=== PATIENT | female | born 1935 | race Caucasian/White ===

== ENCOUNTER → 2016-10-12 | Outpatient (CLI) | payer OTHER ==
[~2016-10-12] MED LIST: /CELE20CA PO; /TIOT18INH INH; ACET65TA OR; ASPI81TA83 OR; Albuterol; Albuterol Inhaler INH; CARD120T6 OR; COLA100C2 OR; DEMA100T OR; FLON0.05; LIPI10TA OR; MOME50SP; NORCOTAB PO; Nasonex; RANI150C OR; SERT50TA2 OR; SPIR50TA2 OR; TUMS500C PO; [UNRECOGNIZED DRUG - OTHER] PO
[2016-10-12 17:55] LABS: BASO % 0.3 % (0.0-1.0); EOS # 0.1 K/mm3 (0.0-0.50); EOS % 2.8 % (0.0-3.0); LYMPH # 1.2 K/mm3 (1.5-4.5); LYMPH % 30.6 % (24.0-44.0); MEAN CORPUSCULAR HEMOGLOBIN 27.2 pg (27.0-33.0); MEAN CORPUSCULAR VOLUME 87.7 fl (80.0-96.0); MONO # 0.2 K/mm3 (0.0-0.8); MONO % 5.7 % (0.0-5.0); NEUTROPHILS # 2.3 K/mm3 (1.8-7.7); NEUTROPHILS % 59.6 % (36.0-66.0); PLATELET COUNT, AUTOMATED 211 k/mm3 (150-450); RED CELL DISTRIBUTION WIDTH 17.5 % (11.5-14.5); WHITE BLOOD COUNT 3.8 K/mm3 (4.0-10.0)
[2016-10-12 18:29] LABS: ALBUMIN 3.6 GM/DL (3.2-5.2); ALBUMIN/GLOBULIN RATIO 1.33 (1.00-1.93); ALKALINE PHOSPHATASE 811 U/L (45-117); ALT/SGPT 81 U/L (12-78); ANION GAP 6 MEQ/L (8-16); AST/SGOT 73 U/L (15-37); BILIRUBIN,TOTAL 0.6 MG/DL (0.2-1.0); BLOOD UREA NITROGEN 14 MG/DL (7-18); CALCIUM LEVEL 8.5 MG/DL (8.8-10.2); CARBON DIOXIDE LEVEL 27 MEQ/L (21-32); CHLORIDE LEVEL 107 MEQ/L (98-107); CHOLESTEROL LEVEL 135 MG/DL (<200); CREATININE FOR GFR 0.95 MG/DL (0.55-1.02); GLOMERULAR FILTRATION RATE > 60.0 (>32); GLUCOSE, FASTING 84 MG/DL (83-110); POTASSIUM SERUM 4.9 MEQ/L (3.5-5.1); SODIUM LEVEL 140 MEQ/L (136-145); TOTAL PROTEIN 6.3 GM/DL (6.4-8.2); TRIGLYCERIDES LEVEL 88 MG/DL (<150)
== END ==
LOC: M WUC 11:17
PROVIDERS: ATTEND Nurse Practitioner Family
DX: K21.9 Gastro-esophageal reflux disease without esophagitis (principal); E78.5 Hyperlipidemia, unspecified; I25.9 Chronic ischemic heart disease, unspecified

== ENCOUNTER → 2016-11-02 | Outpatient (CLI) | payer OTHER ==
[2016-11-02 18:01] LABS: ALBUMIN 3.6 GM/DL (3.2-5.2); ALBUMIN/GLOBULIN RATIO 1.44 (1.00-1.93); BILIRUBIN,DIRECT 0.1 MG/DL (0.0-0.2); BILIRUBIN,TOTAL 0.4 MG/DL (0.2-1.0); TOTAL PROTEIN 6.1 GM/DL (6.4-8.2)
== END ==
LOC: M LRY 12:15
PROVIDERS: ATTEND Nurse Practitioner Family
DX: R94.5 Abnormal results of liver function studies (principal)

== ENCOUNTER → 2017-01-19 | Outpatient (CLI) | payer OTHER ==
[2017-01-19 17:16] LABS: BASO % 0.2 % (0.0-1.0); EOS # 0.1 10^3/uL (0.0-0.50); EOS % 1.2 % (0.0-3.0); IMMATURE GRANULOCYTE % 0.3 % (0-0); LYMPH # 1.9 10^3/uL (1.5-4.5); LYMPH % 30.9 % (24.0-44.0); MEAN CORPUSCULAR HGB CONC 30.1 g/dl (32.0-36.5); MEAN CORPUSCULAR VOLUME 86.3 fl (80.0-96.0); MONO # 0.3 10^3/uL (0.0-0.8); MONO % 5.1 % (0.0-5.0); NEUTROPHILS # 3.8 10^3/uL (1.8-7.7); NEUTROPHILS % 62.3 % (36.0-66.0); PLATELET COUNT, AUTOMATED 228 10^3/uL (150-450); RED CELL DISTRIBUTION WIDTH 19.3 % (11.5-14.5); WHITE BLOOD COUNT 6.1 10^3/uL (4.0-10.0)
[2017-01-19 18:58] LABS: CALCIUM LEVEL 8.8 MG/DL (8.8-10.2); CREATININE FOR GFR 1.27 MG/DL (0.55-1.02); POTASSIUM SERUM 4.5 MEQ/L (3.5-5.1)
[2017-01-19 18:59] LABS: ALBUMIN 3.7 GM/DL (3.2-5.2); ALBUMIN/GLOBULIN RATIO 1.23 (1.00-1.93); BILIRUBIN,TOTAL 0.5 MG/DL (0.2-1.0); TOTAL PROTEIN 6.7 GM/DL (6.4-8.2); URIC ACID 7.6 MG/DL (2.6-6.0)
== END ==
LOC: M LRY 10:50
PROVIDERS: ATTEND Nurse Practitioner Family
DX: K21.9 Gastro-esophageal reflux disease without esophagitis (principal); M79.674 Pain in right toe(s); E78.5 Hyperlipidemia, unspecified

== ENCOUNTER → 2017-03-22 | Outpatient (CLI) | payer OTHER | LOC: M LRY 13:56 | PROVIDERS: ATTEND Nurse Practitioner Family | DX: M79.674 Pain in right toe(s) (principal) ==

== ENCOUNTER → 2017-05-14 | Outpatient (CLI) | payer OTHER ==
[2017-05-14 14:00] LABS: BASO % 0.4 % (0.0-1.0); EOS # 0.1 10^3/uL (0.0-0.50); EOS % 2.4 % (0.0-3.0); HEMATOCRIT 38.1 % (36.0-47.0); HEMOGLOBIN 11.8 g/dl (12.0-16.0); IMMATURE GRANULOCYTE % 0.2 % (0-3.0); LYMPH # 1.9 10^3/uL (1.5-4.5); LYMPH % 37.7 % (24.0-44.0); MEAN CORPUSCULAR HEMOGLOBIN 28.9 pg (27.0-33.0); MEAN CORPUSCULAR VOLUME 93.2 fl (80.0-96.0); MONO # 0.3 10^3/uL (0.0-0.8); MONO % 5.3 % (0.0-5.0); NEUTROPHILS # 2.7 10^3/uL (1.8-7.7); PLATELET COUNT, AUTOMATED 211 10^3/uL (150-450); RED BLOOD COUNT 4.09 10^6/uL (4.00-5.40); RED CELL DISTRIBUTION WIDTH 18.4 % (11.5-14.5); WHITE BLOOD COUNT 4.9 10^3/uL (4.0-10.0)
[2017-05-14 14:30] LABS: ALBUMIN 3.7 GM/DL (3.2-5.2); ALBUMIN/GLOBULIN RATIO 1.28 (1.00-1.93); ALKALINE PHOSPHATASE 235 U/L (45-117); ALT/SGPT 28 U/L (12-78); ANION GAP 7 MEQ/L (8-16); AST/SGOT 28 U/L (7-37); BILIRUBIN,TOTAL 0.5 MG/DL (0.2-1.0); BLOOD UREA NITROGEN 21 MG/DL (7-18); CALCIUM LEVEL 8.3 MG/DL (8.8-10.2); CARBON DIOXIDE LEVEL 26 MEQ/L (21-32); CHLORIDE LEVEL 103 MEQ/L (98-107); CREATININE FOR GFR 1.31 MG/DL (0.55-1.30); GLOMERULAR FILTRATION RATE 41.4 (>32); GLUCOSE, FASTING 96 MG/DL (70-100); POTASSIUM SERUM 4.2 MEQ/L (3.5-5.1); SODIUM LEVEL 136 MEQ/L (136-145); TOTAL PROTEIN 6.6 GM/DL (6.4-8.2)
== END ==
LOC: M LAB 13:29
DX: Z01.812 Encounter for preprocedural laboratory examination (principal)
CPT/HCPCS: 93005

== ENCOUNTER 2017-06-09 14:43 | Emergency (ER) | payer OTHER ==
[2017-06-09] MEDS: ACETAMINOPHEN 325 MG TAB PO ×2 (18:45)
== END 2017-06-09 19:16 | disposition home or self-care (01) ==
LOC: M ED 14:43
DX: M25.561 Pain in right knee (principal); M85.88 Other specified disorders of bone density and structure, other site; M17.11 Unilateral primary osteoarthritis, right knee; M25.461 Effusion, right knee; M71.21 Synovial cyst of popliteal space [Baker], right knee; F41.9 Anxiety disorder, unspecified; M79.89 Other specified soft tissue disorders; Z95.5 Presence of coronary angioplasty implant and graft; Z79.82 Long term (current) use of aspirin; Z79.899 Other long term (current) drug therapy; Z88.5 Allergy status to narcotic agent; Z88.8 Allergy status to other drugs, medicaments and biological substances
CPT/HCPCS: 73564

== ENCOUNTER → 2017-06-09 | Outpatient (CLI) | payer OTHER | LOC: M LRY 13:55 | DX: M25.561 Pain in right knee (principal); M85.861 Other specified disorders of bone density and structure, right lower leg ==

== ENCOUNTER → 2017-07-20 | Outpatient (CLI) | payer OTHER ==
[2017-07-20 16:57] LABS: ANION GAP 7 MEQ/L (8-16); BLOOD UREA NITROGEN 18 MG/DL (7-18); CALCIUM LEVEL 7.7 MG/DL (8.8-10.2); CARBON DIOXIDE LEVEL 26 MEQ/L (21-32); CHLORIDE LEVEL 108 MEQ/L (98-107); CREATININE FOR GFR 1.17 MG/DL (0.55-1.30); GLOMERULAR FILTRATION RATE 47.1 (>32); GLUCOSE, FASTING 91 MG/DL (70-100); POTASSIUM SERUM 3.9 MEQ/L (3.5-5.1); SODIUM LEVEL 141 MEQ/L (136-145)
== END ==
LOC: M LRY 13:36
DX: I51.7 Cardiomegaly (principal); N18.3 Chronic kidney disease, stage 3 (moderate); J18.9 Pneumonia, unspecified organism
CPT/HCPCS: 80048

== ENCOUNTER 2017-08-02 17:05 | Inpatient (IN) | payer OTHER ==
[2017-08-02] MEDS ORDERED: METOPROLOL 5 MG/5 ML VIAL IV (18:30)
[2017-08-02] MEDS: IPRATROPIUM 0.5MG/ALBUTEROL 2.5MG INH SOL UD 3ML (DUONEB)(J7620) NEB (18:36)
[2017-08-02 18:42] LABS: ABG BASE EXCESS -3.3 (-2.0-2.0); ABG HCO3 20.3 MEQ/L (22.0-26.0); ABG O2 SATURATION 94.9 % (95.0-99.0); ABG PARTIAL PRESSURE CO2 31.5 mmHg (35.0-45.0); ABG PARTIAL PRESSURE O2 73.5 mmHg (75.0-100.0); ABG STANDARD HCO3 21.7 MEQ/L (22.0-26.0); ABG TOTAL CO2 21.3 MEQ/L (23.0-31.0); ABG pH (ARTERIAL) 7.427 UNITS (7.350-7.450)
[2017-08-02] MEDS: ASPIRIN 81 MG CHEW TABLET PO (19:00)
[2017-08-02] MEDS: METOPROLOL TART 25 MG TABLET PO (19:02)
[2017-08-02] MEDS: FUROSEMIDE 100 MG/10 ML VIAL (J1940) IV (19:09)
[2017-08-02 19:14] LABS: EOS # 0.1 10^3/uL (0.0-0.50); EOS % 1.3 % (0.0-3.0); HEMATOCRIT 34.3 % (36.0-47.0); HEMOGLOBIN 10.8 g/dl (12.0-15.5); IMMATURE GRANULOCYTE % 0.2 % (0-3.0); LYMPH # 1.6 10^3/uL (1.5-4.5); LYMPH % 34.3 % (24.0-44.0); MEAN CORPUSCULAR HEMOGLOBIN 28.6 pg (27.0-33.0); MEAN CORPUSCULAR HGB CONC 31.5 g/dl (32.0-36.5); MONO # 0.3 10^3/uL (0.0-0.8); MONO % 5.6 % (0.0-5.0); NEUTROPHILS # 2.7 10^3/uL (1.8-7.7); NEUTROPHILS % 58.6 % (36.0-66.0); PLATELET COUNT, AUTOMATED 207 10^3/uL (150-450); RED BLOOD COUNT 3.77 10^6/uL (4.00-5.40); RED CELL DISTRIBUTION WIDTH 17.1 % (11.5-14.5); WHITE BLOOD COUNT 4.6 10^3/uL (4.0-10.0)
[2017-08-02 19:24] LABS: INR 0.98
[2017-08-02 19:46] LABS: ALBUMIN 3.8 GM/DL (3.2-5.2); ALBUMIN/GLOBULIN RATIO 1.41 (1.00-1.93); ALKALINE PHOSPHATASE 146 U/L (45-117); ALT/SGPT 14 U/L (12-78); ANION GAP 10 MEQ/L (8-16); AST/SGOT 10 U/L (7-37); BILIRUBIN,DIRECT 0.2 MG/DL (0.0-0.2); BLOOD UREA NITROGEN 20 MG/DL (7-18); CALCIUM LEVEL 8.3 MG/DL (8.8-10.2); CARBON DIOXIDE LEVEL 23 MEQ/L (21-32); CHLORIDE LEVEL 107 MEQ/L (98-107); CPK CREATINE PHOSPHOKINASE 46 U/L (26-192); CREATININE FOR GFR 1.24 MG/DL (0.55-1.30); GLOMERULAR FILTRATION RATE 44.1 (>32); GLUCOSE, FASTING 82 MG/DL (70-100); SODIUM LEVEL 140 MEQ/L (136-145); TOTAL PROTEIN 6.5 GM/DL (6.4-8.2); TROPONIN I 0.03 NG/ML (< 0.10)
[2017-08-02 19:47] LABS: BILIRUBIN,TOTAL 0.7 MG/DL (0.2-1.0); CK-MB VALUE MASS 2.3 NG/ML (<3.6)
[2017-08-02] MEDS: METOPROLOL 5 MG/5 ML VIAL IV (20:04)
[2017-08-02] MEDS: ATORVASTATIN 20 MG TAB PO (21:00)
[2017-08-02] MEDS: ALBUTEROL SULFATE 2.5 MG/0.5 ML INH NEB SOLN NEB (23:00)
[2017-08-03] MEDS ORDERED: ANALGESIC BALM CRM 120 GM EXT (01:00)
[2017-08-03 01:06] LABS: NT-PRO BNP 4019 PG/ML (<450)
[2017-08-03 01:15] LABS: MAGNESIUM LEVEL 2.4 MG/DL (1.8-2.4); PHOSPHORUS LEVEL 3.6 MG/DL (2.5-4.9)
[2017-08-03] MEDS: ACETAMINOPHEN 650MG ER TAB (TYLENOL ARTHRITIS) PO ×2 (01:55→12:01)
[2017-08-03] MEDS: CALCIUM CARBONATE 500 MG CHEW U/D PO (02:39)
[2017-08-03] MEDS: ENOXAPARIN 100MG/1ML SYRINGE (J1650) SC ×2 (02:40→16:43)
[2017-08-03] MEDS: ALBUTEROL SULFATE 2.5 MG/0.5 ML INH NEB SOLN INH ×3 (04:44→21:08)
[2017-08-03 05:19] LABS: HEMATOCRIT 32.2 % (36.0-47.0); MEAN CORPUSCULAR HEMOGLOBIN 27.9 pg (27.0-33.0); MEAN CORPUSCULAR HGB CONC 31.1 g/dl (32.0-36.5); MEAN CORPUSCULAR VOLUME 89.9 fl (80.0-96.0); PLATELET COUNT, AUTOMATED 217 10^3/uL (150-450); RED BLOOD COUNT 3.58 10^6/uL (4.00-5.40); RED CELL DISTRIBUTION WIDTH 17.2 % (11.5-14.5); WHITE BLOOD COUNT 4.1 10^3/uL (4.0-10.0)
[2017-08-03 05:41] LABS: ANION GAP 6 MEQ/L (8-16); BLOOD UREA NITROGEN 22 MG/DL (7-18); CALCIUM LEVEL 8.4 MG/DL (8.8-10.2); CARBON DIOXIDE LEVEL 25 MEQ/L (21-32); CHLORIDE LEVEL 108 MEQ/L (98-107); CREATININE FOR GFR 1.18 MG/DL (0.55-1.30); GLOMERULAR FILTRATION RATE 46.7 (>32); GLUCOSE, FASTING 96 MG/DL (70-100); SODIUM LEVEL 139 MEQ/L (136-145)
[2017-08-03] MEDS: METOPROLOL TART 25 MG TABLET PO ×4 (06:12→23:47)
[2017-08-03] MEDS: FUROSEMIDE 40 MG/4 ML VIAL (J1940) IV ×4 (07:45→23:48)
[2017-08-03] MEDS: OMEPRAZOLE 20 MG CAP PO (09:23)
[2017-08-03] MEDS: GABAPENTIN 300 MG CAP PO (09:24)
[2017-08-03] MEDS: ASPIRIN 81 MG ENTERIC TAB PO (09:24)
[2017-08-03] MEDS: POLYVINYL ALCOHOL OPHTH SOLN 15 ML(LIQUITEARS) OU ×2 (09:24→21:31)
[2017-08-03] MEDS: SPIRONOLACTONE 25 MG TAB PO (09:24)
[2017-08-03] MEDS: SERTRALINE HCL 50 MG TAB PO (09:24)
[2017-08-03] MEDS: ONDANSETRON 4MG/2ML VIAL (J2405) IV (10:52)
[2017-08-03] MEDS ORDERED: SLF 3 ML SYR IV (18:45)
[2017-08-03] MEDS: DOCUSATE SODIUM 100 MG CAP PO (21:30)
[2017-08-03] MEDS: ATORVASTATIN 20 MG TAB PO (21:31)
[2017-08-03] MEDS: SLF 3 ML SYR IV (21:31)
[2017-08-03] MEDS: FAMOTIDINE 20 MG TAB PO (21:31)
[2017-08-04] MEDS: ENOXAPARIN 80 MG/0.8 ML SYRINGE (J1650) SC ×2 (03:55→15:33)
[2017-08-04] MEDS: ACETAMINOPHEN 650MG ER TAB (TYLENOL ARTHRITIS) PO ×2 (03:55→15:35)
[2017-08-04] MEDS: ALBUTEROL SULFATE 2.5 MG/0.5 ML INH NEB SOLN INH ×2 (05:42→20:13)
[2017-08-04 05:49] LABS: HEMOGLOBIN 9.4 g/dl (12.0-15.5); MEAN CORPUSCULAR HEMOGLOBIN 27.7 pg (27.0-33.0); MEAN CORPUSCULAR HGB CONC 30.3 g/dl (32.0-36.5); MEAN CORPUSCULAR VOLUME 91.4 fl (80.0-96.0); PLATELET COUNT, AUTOMATED 180 10^3/uL (150-450); RED BLOOD COUNT 3.39 10^6/uL (4.00-5.40); RED CELL DISTRIBUTION WIDTH 17.4 % (11.5-14.5); WHITE BLOOD COUNT 3.9 10^3/uL (4.0-10.0)
[2017-08-04 06:08] LABS: ANION GAP 9 MEQ/L (8-16); BLOOD UREA NITROGEN 18 MG/DL (7-18); CALCIUM LEVEL 8.2 MG/DL (8.8-10.2); CARBON DIOXIDE LEVEL 24 MEQ/L (21-32); CHLORIDE LEVEL 109 MEQ/L (98-107); CREATININE FOR GFR 1.31 MG/DL (0.55-1.30); GLOMERULAR FILTRATION RATE 41.4 (>32); GLUCOSE, FASTING 100 MG/DL (70-100); POTASSIUM SERUM 3.7 MEQ/L (3.5-5.1); SODIUM LEVEL 142 MEQ/L (136-145)
[2017-08-04] MEDS: METOPROLOL TART 25 MG TABLET PO ×3 (06:15→18:20)
[2017-08-04] MEDS: FUROSEMIDE 40 MG/4 ML VIAL (J1940) IV ×3 (06:15→18:19)
[2017-08-04] MEDS: SLF 3 ML SYR IV ×3 (06:16→20:50)
[2017-08-04] MEDS: SERTRALINE HCL 50 MG TAB PO (09:04)
[2017-08-04] MEDS: OMEPRAZOLE 20 MG CAP PO (09:04)
[2017-08-04] MEDS: GABAPENTIN 300 MG CAP PO (09:06)
[2017-08-04] MEDS: SPIRONOLACTONE 25 MG TAB PO (09:06)
[2017-08-04] MEDS: ASPIRIN 81 MG ENTERIC TAB PO (09:06)
[2017-08-04] MEDS: DIGOXIN 0.125 MG TAB PO (09:06)
[2017-08-04] MEDS: POLYVINYL ALCOHOL OPHTH SOLN 15 ML(LIQUITEARS) OU ×2 (09:07→20:49)
[2017-08-04] MEDS: COLCHICINE 0.6 MG TAB PO (10:11)
[2017-08-04] MEDS: DOCUSATE SODIUM 100 MG CAP PO (20:49)
[2017-08-04] MEDS: FAMOTIDINE 20 MG TAB PO (20:49)
[2017-08-05] MEDS: ACETAMINOPHEN 650MG ER TAB (TYLENOL ARTHRITIS) PO (01:14)
[2017-08-05] MEDS: ALBUTEROL SULFATE 2.5 MG/0.5 ML INH NEB SOLN INH ×3 (01:27→20:14)
[2017-08-05] MEDS: ENOXAPARIN 80 MG/0.8 ML SYRINGE (J1650) SC ×2 (03:38→15:44)
[2017-08-05 05:36] LABS: HEMATOCRIT 30.8 % (36.0-47.0); HEMOGLOBIN 9.5 g/dl (12.0-15.5); MEAN CORPUSCULAR HEMOGLOBIN 27.8 pg (27.0-33.0); MEAN CORPUSCULAR HGB CONC 30.8 g/dl (32.0-36.5); MEAN CORPUSCULAR VOLUME 90.1 fl (80.0-96.0); PLATELET COUNT, AUTOMATED 190 10^3/uL (150-450); RED BLOOD COUNT 3.42 10^6/uL (4.00-5.40); RED CELL DISTRIBUTION WIDTH 17.3 % (11.5-14.5)
[2017-08-05 05:52] LABS: ANION GAP 8 MEQ/L (8-16); BLOOD UREA NITROGEN 19 MG/DL (7-18); CALCIUM LEVEL 8.2 MG/DL (8.8-10.2); CARBON DIOXIDE LEVEL 26 MEQ/L (21-32); CHLORIDE LEVEL 108 MEQ/L (98-107); GLOMERULAR FILTRATION RATE 41.7 (>32); GLUCOSE, FASTING 89 MG/DL (70-100); POTASSIUM SERUM 3.6 MEQ/L (3.5-5.1); SODIUM LEVEL 142 MEQ/L (136-145)
[2017-08-05] MEDS: FUROSEMIDE 40 MG/4 ML VIAL (J1940) IV ×6 (06:33→17:09)
[2017-08-05] MEDS: METOPROLOL TART 25 MG TABLET PO ×4 (06:34→17:08)
[2017-08-05] MEDS: SLF 3 ML SYR IV ×3 (06:34→21:36)
[2017-08-05] MEDS: ASPIRIN 81 MG ENTERIC TAB PO (08:42)
[2017-08-05] MEDS: COLCHICINE 0.6 MG TAB PO ×2 (08:42→21:36)
[2017-08-05] MEDS: GABAPENTIN 300 MG CAP PO (08:42)
[2017-08-05] MEDS: SPIRONOLACTONE 25 MG TAB PO (08:42)
[2017-08-05] MEDS: OMEPRAZOLE 20 MG CAP PO (08:42)
[2017-08-05] MEDS: SERTRALINE HCL 50 MG TAB PO (08:43)
[2017-08-05] MEDS: DIGOXIN 0.125 MG TAB PO (08:43)
[2017-08-05] MEDS: POLYVINYL ALCOHOL OPHTH SOLN 15 ML(LIQUITEARS) OU ×2 (08:43→21:36)
[2017-08-05 17:57] LABS: MAGNESIUM LEVEL 1.9 MG/DL (1.8-2.4)
[2017-08-05] MEDS: MAG SULF 1GM/100ML (MAG RUN) 1 GM in APPROPRIATE DILUENT 1 EA IV (18:27)
[2017-08-05] MEDS: DOCUSATE SODIUM 100 MG CAP PO (21:35)
[2017-08-05] MEDS: FAMOTIDINE 20 MG TAB PO (21:36)
[2017-08-06] MEDS: ENOXAPARIN 80 MG/0.8 ML SYRINGE (J1650) SC ×2 (03:43→16:30)
[2017-08-06] MEDS: ALBUTEROL SULFATE 2.5 MG/0.5 ML INH NEB SOLN INH ×3 (04:21→21:47)
[2017-08-06 05:26] LABS: HEMATOCRIT 33.2 % (36.0-47.0); HEMOGLOBIN 10.3 g/dl (12.0-15.5); MEAN CORPUSCULAR HEMOGLOBIN 27.8 pg (27.0-33.0); MEAN CORPUSCULAR VOLUME 89.5 fl (80.0-96.0); PLATELET COUNT, AUTOMATED 210 10^3/uL (150-450); RED BLOOD COUNT 3.71 10^6/uL (4.00-5.40); RED CELL DISTRIBUTION WIDTH 17.2 % (11.5-14.5); WHITE BLOOD COUNT 3.8 10^3/uL (4.0-10.0)
[2017-08-06 05:37] LABS: ANION GAP 6 MEQ/L (8-16); BLOOD UREA NITROGEN 16 MG/DL (7-18); CALCIUM LEVEL 8.1 MG/DL (8.8-10.2); CARBON DIOXIDE LEVEL 27 MEQ/L (21-32); CHLORIDE LEVEL 108 MEQ/L (98-107); CREATININE FOR GFR 1.02 MG/DL (0.55-1.30); GLOMERULAR FILTRATION RATE 55.2 (>32); GLUCOSE, FASTING 86 MG/DL (70-100); POTASSIUM SERUM 3.4 MEQ/L (3.5-5.1); SODIUM LEVEL 141 MEQ/L (136-145)
[2017-08-06] MEDS: METOPROLOL TART 25 MG TABLET PO ×5 (05:53→23:56)
[2017-08-06] MEDS: SLF 3 ML SYR IV ×3 (05:54→21:46)
[2017-08-06] MEDS: FUROSEMIDE 40 MG/4 ML VIAL (J1940) IV ×5 (06:00→23:56)
[2017-08-06] MEDS ORDERED: POTASSIUM CHLORIDE 10 MEQ SR TABLET PO (08:30)
[2017-08-06] MEDS: SPIRONOLACTONE 25 MG TAB PO (09:51)
[2017-08-06] MEDS: GABAPENTIN 300 MG CAP PO (09:51)
[2017-08-06] MEDS: ASPIRIN 81 MG ENTERIC TAB PO (09:51)
[2017-08-06] MEDS: POTASSIUM CHLORIDE 10 MEQ SR TABLET PO (09:52)
[2017-08-06] MEDS: COLCHICINE 0.6 MG TAB PO ×2 (09:52→21:46)
[2017-08-06] MEDS: DIGOXIN 0.125 MG TAB PO (09:52)
[2017-08-06] MEDS: POLYVINYL ALCOHOL OPHTH SOLN 15 ML(LIQUITEARS) OU ×2 (09:52→21:46)
[2017-08-06] MEDS: SERTRALINE HCL 50 MG TAB PO (09:52)
[2017-08-06] MEDS: OMEPRAZOLE 20 MG CAP PO (09:52)
[2017-08-06] MEDS: ONDANSETRON 4MG/2ML VIAL (J2405) IV (10:44)
[2017-08-06] MEDS: POTASSIUM CHLORIDE 10% LIQ 20 MEQ/15 ML UDC PO ×2 (11:30→15:07)
[2017-08-06] MEDS ORDERED: METOPROLOL 5 MG/5 ML VIAL As Ordered (11:47)
[2017-08-06] MEDS: METOPROLOL 5 MG/5 ML VIAL IV (11:50)
[2017-08-06] MEDS: MAALOX 30 ML SUSP *UDC PO (12:00)
[2017-08-06] MEDS: FAMOTIDINE 20 MG TAB PO (21:46)
[2017-08-06] MEDS: DOCUSATE SODIUM 100 MG CAP PO (21:46)
[2017-08-07] MEDS: ENOXAPARIN 80 MG/0.8 ML SYRINGE (J1650) SC ×2 (03:48→15:48)
[2017-08-07 04:03] LABS: HEMATOCRIT 32.3 % (36.0-47.0); MEAN CORPUSCULAR HEMOGLOBIN 27.9 pg (27.0-33.0); PLATELET COUNT, AUTOMATED 226 10^3/uL (150-450); RED BLOOD COUNT 3.59 10^6/uL (4.00-5.40); RED CELL DISTRIBUTION WIDTH 17.2 % (11.5-14.5); WHITE BLOOD COUNT 3.8 10^3/uL (4.0-10.0)
[2017-08-07 04:22] LABS: ANION GAP 8 MEQ/L (8-16); BLOOD UREA NITROGEN 15 MG/DL (7-18); CALCIUM LEVEL 7.9 MG/DL (8.8-10.2); CARBON DIOXIDE LEVEL 29 MEQ/L (21-32); CHLORIDE LEVEL 107 MEQ/L (98-107); CREATININE FOR GFR 1.04 MG/DL (0.55-1.30); GLUCOSE, FASTING 89 MG/DL (70-100); IRON (FE) 24 UG/DL (50-170); PERCENT SATURATION 6.8 % (13.2-45.0); POTASSIUM SERUM 3.4 MEQ/L (3.5-5.1); SODIUM LEVEL 144 MEQ/L (136-145); TOTAL IRON BINDING CAPACITY 353 UG/DL (250-450)
[2017-08-07] MEDS: FUROSEMIDE 40 MG/4 ML VIAL (J1940) IV ×3 (05:57→18:45)
[2017-08-07] MEDS: METOPROLOL TART 25 MG TABLET PO ×3 (05:58→18:45)
[2017-08-07] MEDS: SLF 3 ML SYR IV ×3 (05:58→21:02)
[2017-08-07] MEDS: ALBUTEROL SULFATE 2.5 MG/0.5 ML INH NEB SOLN INH ×2 (08:08→21:07)
[2017-08-07] MEDS: MAALOX 30 ML SUSP *UDC PO (08:31)
[2017-08-07] MEDS: ASPIRIN 81 MG ENTERIC TAB PO (08:32)
[2017-08-07] MEDS: SERTRALINE HCL 50 MG TAB PO (08:32)
[2017-08-07] MEDS: SPIRONOLACTONE 25 MG TAB PO (08:32)
[2017-08-07] MEDS: DIGOXIN 0.125 MG TAB PO (08:32)
[2017-08-07] MEDS: OMEPRAZOLE 20 MG CAP PO (08:32)
[2017-08-07] MEDS: GABAPENTIN 300 MG CAP PO (08:32)
[2017-08-07] MEDS: COLCHICINE 0.6 MG TAB PO (08:32)
[2017-08-07] MEDS: POLYVINYL ALCOHOL OPHTH SOLN 15 ML(LIQUITEARS) OU ×2 (08:33→21:02)
[2017-08-07] MEDS: POTASSIUM CHLORIDE 10 MEQ SR TABLET PO (09:00)
[2017-08-07] MEDS: ONDANSETRON 4MG/2ML VIAL (J2405) IV (10:52)
[2017-08-07] MEDS ORDERED: ANUSOL HC CREAM 30GM TOP (11:15)
[2017-08-07] MEDS: METOPROLOL 5 MG/5 ML VIAL IV (11:30)
[2017-08-07] MEDS: DOCUSATE SODIUM 100 MG CAP PO (21:00)
[2017-08-07] MEDS: FAMOTIDINE 20 MG TAB PO (21:01)
[2017-08-08] MEDS: METOPROLOL TART 25 MG TABLET PO ×4 (00:39→17:10)
[2017-08-08] MEDS: FUROSEMIDE 40 MG/4 ML VIAL (J1940) IV ×4 (00:39→17:09)
[2017-08-08] MEDS: ENOXAPARIN 80 MG/0.8 ML SYRINGE (J1650) SC ×2 (03:54→14:12)
[2017-08-08 04:50] LABS: HEMATOCRIT 31.6 % (36.0-47.0); HEMOGLOBIN 9.7 g/dl (12.0-15.5); MEAN CORPUSCULAR HEMOGLOBIN 27.6 pg (27.0-33.0); MEAN CORPUSCULAR HGB CONC 30.7 g/dl (32.0-36.5); PLATELET COUNT, AUTOMATED 236 10^3/uL (150-450); RED BLOOD COUNT 3.51 10^6/uL (4.00-5.40); RED CELL DISTRIBUTION WIDTH 17.2 % (11.5-14.5); WHITE BLOOD COUNT 3.7 10^3/uL (4.0-10.0)
[2017-08-08 05:07] LABS: ANION GAP 4 MEQ/L (8-16); BLOOD UREA NITROGEN 14 MG/DL (7-18); CALCIUM LEVEL 8.1 MG/DL (8.8-10.2); CARBON DIOXIDE LEVEL 32 MEQ/L (21-32); CHLORIDE LEVEL 106 MEQ/L (98-107); CREATININE FOR GFR 1.04 MG/DL (0.55-1.30); GLUCOSE, FASTING 87 MG/DL (70-100); POTASSIUM SERUM 3.1 MEQ/L (3.5-5.1); SODIUM LEVEL 142 MEQ/L (136-145)
[2017-08-08] MEDS: SLF 3 ML SYR IV ×3 (06:00→20:30)
[2017-08-08] MEDS: POTASSIUM CHLORIDE 10% LIQ 20 MEQ/15 ML UDC PO (06:00)
[2017-08-08] MEDS: POLYVINYL ALCOHOL OPHTH SOLN 15 ML(LIQUITEARS) OU ×2 (08:04→20:30)
[2017-08-08] MEDS: DIGOXIN 0.125 MG TAB PO (08:04)
[2017-08-08] MEDS: ASPIRIN 81 MG ENTERIC TAB PO (08:04)
[2017-08-08] MEDS: SPIRONOLACTONE 25 MG TAB PO (08:05)
[2017-08-08] MEDS: SERTRALINE HCL 50 MG TAB PO (08:05)
[2017-08-08] MEDS: OMEPRAZOLE 20 MG CAP PO (08:05)
[2017-08-08] MEDS: GABAPENTIN 300 MG CAP PO (08:05)
[2017-08-08] MEDS: MAALOX 30 ML SUSP *UDC PO ×2 (08:54→16:44)
[2017-08-08] MEDS: KCL 10MEQ/100ML SWI (KRUN) 10 MEQ in APPROPRIATE DILUENT 1 EA IV ×4 (09:31→14:12)
[2017-08-08] MEDS: ACETAMINOPHEN 650MG ER TAB (TYLENOL ARTHRITIS) PO (09:37)
[2017-08-08] MEDS: ALBUTEROL SULFATE 2.5 MG/0.5 ML INH NEB SOLN INH ×2 (15:12→20:08)
[2017-08-08] MEDS: FAMOTIDINE 20 MG TAB PO (20:29)
[2017-08-08] MEDS: DOCUSATE SODIUM 100 MG CAP PO (20:30)
[2017-08-09] MEDS: METOPROLOL TART 25 MG TABLET PO (00:07)
[2017-08-09] MEDS: FUROSEMIDE 40 MG/4 ML VIAL (J1940) IV ×3 (00:07→13:12)
[2017-08-09] MEDS: ENOXAPARIN 80 MG/0.8 ML SYRINGE (J1650) SC (03:39)
[2017-08-09 05:02] LABS: HEMOGLOBIN 10.2 g/dl (12.0-15.5); MEAN CORPUSCULAR HEMOGLOBIN 27.6 pg (27.0-33.0); MEAN CORPUSCULAR HGB CONC 30.9 g/dl (32.0-36.5); MEAN CORPUSCULAR VOLUME 89.4 fl (80.0-96.0); PLATELET COUNT, AUTOMATED 238 10^3/uL (150-450); RED BLOOD COUNT 3.69 10^6/uL (4.00-5.40); RED CELL DISTRIBUTION WIDTH 17.2 % (11.5-14.5); WHITE BLOOD COUNT 4.3 10^3/uL (4.0-10.0)
[2017-08-09 05:31] LABS: ANION GAP 7 MEQ/L (8-16); BLOOD UREA NITROGEN 15 MG/DL (7-18); CALCIUM LEVEL 8.2 MG/DL (8.8-10.2); CARBON DIOXIDE LEVEL 30 MEQ/L (21-32); CHLORIDE LEVEL 105 MEQ/L (98-107); CREATININE FOR GFR 1.08 MG/DL (0.55-1.30); DIGOXIN LEVEL 0.8 NG/ML (0.5-2.0); GLOMERULAR FILTRATION RATE 51.7 (>32); GLUCOSE, FASTING 84 MG/DL (70-100); POTASSIUM SERUM 3.4 MEQ/L (3.5-5.1); SODIUM LEVEL 142 MEQ/L (136-145)
[2017-08-09] MEDS: ACETAMINOPHEN 650MG ER TAB (TYLENOL ARTHRITIS) PO (05:54)
[2017-08-09] MEDS: SLF 3 ML SYR IV (05:56)
[2017-08-09 06:25] LABS: MAGNESIUM LEVEL 2.1 MG/DL (1.8-2.4)
[2017-08-09] MEDS: KCL 10MEQ/100ML SWI (KRUN) 10 MEQ in APPROPRIATE DILUENT 1 EA IV ×2 (08:00→09:00)
[2017-08-09] MEDS: METOPROLOL SUCC (TopROL XL) 100MG *XL* TAB PO (09:19)
[2017-08-09] MEDS: OMEPRAZOLE 20 MG CAP PO (09:19)
[2017-08-09] MEDS: POLYVINYL ALCOHOL OPHTH SOLN 15 ML(LIQUITEARS) OU (09:20)
[2017-08-09] MEDS: DIGOXIN 0.125 MG TAB PO (09:20)
[2017-08-09] MEDS: SERTRALINE HCL 50 MG TAB PO (09:20)
[2017-08-09] MEDS: GABAPENTIN 300 MG CAP PO (09:20)
[2017-08-09] MEDS: SPIRONOLACTONE 25 MG TAB PO (09:20)
[2017-08-09] MEDS: ASPIRIN 81 MG ENTERIC TAB PO (09:20)
[2017-08-09] MEDS: MAALOX 30 ML SUSP *UDC PO (10:03)
== END 2017-08-09 14:23 | disposition home health service (06) | DRG 314 ==
LOC: M ED INP 08-03 01:05 → M PCU 08-03 02:00 → M ED 17:05
DX: I31.9 Disease of pericardium, unspecified (principal); I50.31 Acute diastolic (congestive) heart failure; I48.91 Unspecified atrial fibrillation; I25.10 Atherosclerotic heart disease of native coronary artery without angina pectoris; Z95.2 Presence of prosthetic heart valve; G25.81 Restless legs syndrome; K21.9 Gastro-esophageal reflux disease without esophagitis; F32.9 Major depressive disorder, single episode, unspecified; Z79.01 Long term (current) use of anticoagulants; Z79.899 Other long term (current) drug therapy; Z79.82 Long term (current) use of aspirin; Z88.8 Allergy status to other drugs, medicaments and biological substances; Z88.5 Allergy status to narcotic agent; J44.9 Chronic obstructive pulmonary disease, unspecified; I11.0 Hypertensive heart disease with heart failure; I25.2 Old myocardial infarction; M10.9 Gout, unspecified; M19.90 Unspecified osteoarthritis, unspecified site; Z87.891 Personal history of nicotine dependence; E83.51 Hypocalcemia; I73.9 Peripheral vascular disease, unspecified; I65.23 Occlusion and stenosis of bilateral carotid arteries; E78.00 Pure hypercholesterolemia, unspecified

== ENCOUNTER → 2017-09-28 | Outpatient (CLI) | payer OTHER ==
[2017-09-28 20:34] LABS: ALBUMIN 3.9 GM/DL (3.2-5.2); ALKALINE PHOSPHATASE 98 U/L (45-117); ALT/SGPT 19 U/L (12-78); ANION GAP 10 MEQ/L (8-16); AST/SGOT 14 U/L (7-37); BILIRUBIN,TOTAL 0.8 MG/DL (0.2-1.0); BLOOD UREA NITROGEN 24 MG/DL (7-18); CALCIUM LEVEL 9.1 MG/DL (8.8-10.2); CARBON DIOXIDE LEVEL 28 MEQ/L (21-32); CHLORIDE LEVEL 100 MEQ/L (98-107); CHOLESTEROL LEVEL 121 MG/DL (<200); GLOMERULAR FILTRATION RATE 45.8 (>32); GLUCOSE, FASTING 90 MG/DL (70-100); HDL CHOLESTEROL 50 MG/DL (>40); LDL CHOLESTEROL 42.6 MG/DL (<100); NON-HDL-C 71 MG/DL; POTASSIUM SERUM 3.8 MEQ/L (3.5-5.1); SODIUM LEVEL 138 MEQ/L (136-145); TOTAL PROTEIN 6.5 GM/DL (6.4-8.2); TRIGLYCERIDES LEVEL 142 MG/DL (<150)
== END ==
LOC: M LRY 15:04
DX: E78.5 Hyperlipidemia, unspecified (principal)
CPT/HCPCS: 80053

== ENCOUNTER → 2017-10-12 | Outpatient (CLI) | payer OTHER ==
[2017-10-12 20:29] LABS: C REACTIVE PROTEIN QUANTITATIV < 0.30 MG/DL (0.00-0.30)
[2017-10-12 20:48] LABS: ERYTHROCYTE SEDIMENTATION RATE 7 mm/hr (0-30)
== END ==
LOC: M LRY 15:54
DX: H47.10 Unspecified papilledema (principal)
CPT/HCPCS: 86140

== ENCOUNTER → 2017-11-01 | Outpatient (CLI) | payer OTHER ==
[2017-11-01 20:49] LABS: RHEUMATOID FACTOR QUANT < 10.0 IU/ML (<15.0)
[2017-11-01 21:59] LABS: ERYTHROCYTE SEDIMENTATION RATE 10 mm/hr (0-30)
[2017-11-03 14:17] LABS: ANTI DOUBLE STRAND-DNA AB <1 IU/mL (0-9); ANTINUCLEAR ANTIBODIES DIRECT Positive (Negative); RNP ANTIBODIES <0.2 AI (0.0-0.9); SJOGREN'S ANTI SS-A <0.2 AI (0.0-0.9); SJOGREN'S ANTI SS-B <0.2 AI (0.0-0.9); SMITH ANTIBODIES <0.2 AI (0.0-0.9)
== END ==
LOC: M LRY 17:39
DX: I31.3 Pericardial effusion (noninflammatory) (principal)
CPT/HCPCS: 36415

== ENCOUNTER → 2017-12-14 | Outpatient (REF) | payer OTHER ==
[2017-12-14 20:13] LABS: ANION GAP 11 MEQ/L (8-16); BLOOD UREA NITROGEN 16 MG/DL (7-18); CALCIUM LEVEL 8.3 MG/DL (8.8-10.2); CARBON DIOXIDE LEVEL 22 MEQ/L (21-32); CHLORIDE LEVEL 109 MEQ/L (98-107); CREATININE FOR GFR 0.81 MG/DL (0.55-1.30); DIGOXIN LEVEL 1.3 NG/ML (0.5-2.0); GLOMERULAR FILTRATION RATE > 60.0 (>32); GLUCOSE, FASTING 80 MG/DL (70-100); SODIUM LEVEL 142 MEQ/L (136-145)
== END ==
LOC: M LAB REF 17:26
DX: N18.3 Chronic kidney disease, stage 3 (moderate) (principal); I48.1 Persistent atrial fibrillation; M10.9 Gout, unspecified
CPT/HCPCS: 80162

== ENCOUNTER → 2017-12-22 | Outpatient (REF) | payer OTHER ==
[2017-12-22 20:23] LABS: ANION GAP 12 MEQ/L (8-16); BLOOD UREA NITROGEN 23 MG/DL (7-18); CALCIUM LEVEL 8.1 MG/DL (8.8-10.2); CARBON DIOXIDE LEVEL 28 MEQ/L (21-32); CHLORIDE LEVEL 100 MEQ/L (98-107); CREATININE FOR GFR 1.01 MG/DL (0.55-1.30); GLOMERULAR FILTRATION RATE 55.9 (>32); GLUCOSE, FASTING 111 MG/DL (70-100); MAGNESIUM LEVEL 1.9 MG/DL (1.8-2.4); POTASSIUM SERUM 3.5 MEQ/L (3.5-5.1); SODIUM LEVEL 140 MEQ/L (136-145)
== END ==
LOC: M LAB REF 18:13
DX: I48.0 Paroxysmal atrial fibrillation (principal); I73.9 Peripheral vascular disease, unspecified; I10 Essential (primary) hypertension; E78.00 Pure hypercholesterolemia, unspecified
CPT/HCPCS: 83735

== ENCOUNTER 2018-01-04 17:45 | Inpatient (IN) | payer OTHER ==
[2018-01-04 17:34] LABS: BASO % 0.3 % (0.0-1.0); EOS % 0.6 % (0.0-3.0); HEMATOCRIT 33.1 % (36.0-47.0); HEMOGLOBIN 9.6 g/dl (12.0-15.5); IMMATURE GRANULOCYTE % 0.3 % (0-3.0); LYMPH # 1.3 10^3/uL (1.5-4.5); MEAN CORPUSCULAR VOLUME 79.4 fl (80.0-96.0); MONO # 0.5 10^3/uL (0.0-0.8); MONO % 7.4 % (0.0-5.0); NEUTROPHILS # 4.7 10^3/uL (1.8-7.7); NEUTROPHILS % 71.4 % (36.0-66.0); PLATELET COUNT, AUTOMATED 277 10^3/uL (150-450); RED BLOOD COUNT 4.17 10^6/uL (4.00-5.40); WHITE BLOOD COUNT 6.5 10^3/uL (4.0-10.0)
[2018-01-04 17:44] LABS: INR 1.55; PARTIAL THROMBOPLASTIN TIME 38.1 SECONDS (25.4-37.6); PROTHROMBIN TIME 18.8 SECONDS (12.1-14.4)
[2018-01-04] MEDS: NS 500 ML IV (18:00)
[2018-01-04 18:18] LABS: ANION GAP 10 MEQ/L (8-16); BLOOD UREA NITROGEN 38 MG/DL (7-18); CALCIUM LEVEL 7.9 MG/DL (8.8-10.2); CARBON DIOXIDE LEVEL 29 MEQ/L (21-32); CHLORIDE LEVEL 102 MEQ/L (98-107); CPK CREATINE PHOSPHOKINASE 46 U/L (26-192); CREATININE FOR GFR 1.05 MG/DL (0.55-1.30); DIGOXIN LEVEL 4.2 NG/ML (0.5-2.0); GLOMERULAR FILTRATION RATE 53.4 (>32); GLUCOSE, FASTING 104 MG/DL (70-100); MB/CK RELATIVE INDEX 4.35 (< OR =4); NT-PRO BNP 11788 PG/ML (<450); POTASSIUM SERUM 3.8 MEQ/L (3.5-5.1); SODIUM LEVEL 141 MEQ/L (136-145); TROPONIN I 0.06 NG/ML (< 0.10)
[2018-01-04] MEDS: DIGOXIN IMMUNE FAB (OVINE) 40MG VIAL (J1162) IV (19:02)
[2018-01-04] MEDS ORDERED: NS 1,000 ML IV (19:15)
[2018-01-04] MEDS ORDERED: GABAPENTIN 300 MG CAP PO (21:00)
[2018-01-04 21:08] LABS: ALBUMIN 3.4 GM/DL (3.2-5.2); ALKALINE PHOSPHATASE 119 U/L (45-117); ALT/SGPT 17 U/L (12-78); AST/SGOT 12 U/L (7-37); BILIRUBIN,DIRECT 0.2 MG/DL (0.0-0.2); BILIRUBIN,TOTAL 0.7 MG/DL (0.2-1.0); TOTAL PROTEIN 5.4 GM/DL (6.4-8.2)
[2018-01-04] MEDS: ATORVASTATIN 20 MG TAB PO (22:03)
[2018-01-04] MEDS: ACETAMINOPHEN TAB 650MG DOSE (2X325MG) PO (22:03)
[2018-01-04] MEDS: ALBUTEROL SULFATE 2.5 MG/0.5 ML INH NEB SOLN INH (22:22)
[2018-01-05 02:10] LABS: HEMOGLOBIN 9.4 g/dl (12.0-15.5)
[2018-01-05] MEDS ORDERED: SLF 3 ML SYR IV (02:45)
[2018-01-05] MEDS: ALBUTEROL SULFATE 2.5 MG/0.5 ML INH NEB SOLN INH ×2 (04:22→20:04)
[2018-01-05] MEDS: ACETAMINOPHEN 650MG ER TAB (TYLENOL ARTHRITIS) PO ×2 (05:10→20:16)
[2018-01-05] MEDS: SLF 3 ML SYR IV ×3 (05:10→20:16)
[2018-01-05 06:00] LABS: HEMATOCRIT 32.7 % (36.0-47.0); HEMOGLOBIN 9.5 g/dl (12.0-15.5)
[2018-01-05 06:40] LABS: MAGNESIUM LEVEL 2.6 MG/DL (1.8-2.4)
[2018-01-05] MEDS ORDERED: DIGOXIN IMMUNE FAB (OVINE) 40MG VIAL (J1162) IV (07:00)
[2018-01-05 08:35] LABS: HEMATOCRIT 33.3 % (36.0-47.0); HEMOGLOBIN 9.4 g/dl (12.0-15.5); MEAN CORPUSCULAR HEMOGLOBIN 22.5 pg (27.0-33.0); MEAN CORPUSCULAR HGB CONC 28.2 g/dl (32.0-36.5); MEAN CORPUSCULAR VOLUME 79.9 fl (80.0-96.0); PLATELET COUNT, AUTOMATED 284 10^3/uL (150-450); RED BLOOD COUNT 4.17 10^6/uL (4.00-5.40); RED CELL DISTRIBUTION WIDTH 18.9 % (11.5-14.5); WHITE BLOOD COUNT 6.5 10^3/uL (4.0-10.0)
[2018-01-05 09:18] LABS: ALBUMIN 3.3 GM/DL (3.2-5.2); ALBUMIN/GLOBULIN RATIO 1.38 (1.00-1.93); ALKALINE PHOSPHATASE 120 U/L (45-117); ALT/SGPT 13 U/L (12-78); ANION GAP 8 MEQ/L (8-16); AST/SGOT 9 U/L (7-37); BILIRUBIN,TOTAL 0.7 MG/DL (0.2-1.0); BLOOD UREA NITROGEN 38 MG/DL (7-18); CALCIUM LEVEL 7.9 MG/DL (8.8-10.2); CARBON DIOXIDE LEVEL 29 MEQ/L (21-32); CHLORIDE LEVEL 104 MEQ/L (98-107); GLOMERULAR FILTRATION RATE 45.8 (>32); GLUCOSE, FASTING 89 MG/DL (70-100); MAGNESIUM LEVEL 2.5 MG/DL (1.8-2.4); PHOSPHORUS LEVEL 3.8 MG/DL (2.5-4.9); POTASSIUM SERUM 3.5 MEQ/L (3.5-5.1); SODIUM LEVEL 141 MEQ/L (136-145); TOTAL PROTEIN 5.7 GM/DL (6.4-8.2)
[2018-01-05 09:24] LABS: FREE T4 1.12 NG/DL (0.76-1.46)
[2018-01-05] MEDS: ASPIRIN 81 MG ENTERIC TAB PO (10:17)
[2018-01-05] MEDS: SERTRALINE HCL 50 MG TAB PO (10:17)
[2018-01-05] MEDS: OMEPRAZOLE 20 MG CAP PO (10:17)
[2018-01-05] MEDS: FEBUXOSTAT 40 MG TABLET (ULORIC) PO (10:17)
[2018-01-05] MEDS: FLUBLOK(EGG FREE)(QUAD)INFLUENZA VACC 0.5ML SYRINGE (90682)18YRS&OLDER IM (10:27)
[2018-01-05] MEDS: PREVNAR 13 VACCINE SYRINGE (CPT CODE:90670) IM (10:28)
[2018-01-05] MEDS: ONDANSETRON 4MG/2ML VIAL (J2405) IV (11:03)
[2018-01-05 12:43] LABS: HEMOGLOBIN 9.8 g/dl (12.0-15.5)
[2018-01-05] MEDS: TAMSULOSIN 0.4 MG CAP PO (20:16)
[2018-01-05] MEDS: ATORVASTATIN 20 MG TAB PO (20:16)
[2018-01-06] MEDS: ALBUTEROL SULFATE 2.5 MG/0.5 ML INH NEB SOLN INH ×4 (00:28→20:36)
[2018-01-06] MEDS: ACETAMINOPHEN 650MG ER TAB (TYLENOL ARTHRITIS) PO ×2 (05:07→20:28)
[2018-01-06] MEDS: SLF 3 ML SYR IV ×3 (05:14→20:28)
[2018-01-06 05:59] LABS: HEMATOCRIT 32.1 % (36.0-47.0); HEMOGLOBIN 9.4 g/dl (12.0-15.5); MEAN CORPUSCULAR HGB CONC 29.3 g/dl (32.0-36.5); MEAN CORPUSCULAR VOLUME 78.5 fl (80.0-96.0); PLATELET COUNT, AUTOMATED 241 10^3/uL (150-450); RED BLOOD COUNT 4.09 10^6/uL (4.00-5.40); RED CELL DISTRIBUTION WIDTH 18.8 % (11.5-14.5)
[2018-01-06 06:40] LABS: ANION GAP 11 MEQ/L (8-16); BLOOD UREA NITROGEN 37 MG/DL (7-18); CALCIUM LEVEL 7.6 MG/DL (8.8-10.2); CARBON DIOXIDE LEVEL 24 MEQ/L (21-32); CHLORIDE LEVEL 106 MEQ/L (98-107); CREATININE FOR GFR 1.15 MG/DL (0.55-1.30); DIGOXIN LEVEL 3.7 NG/ML (0.5-2.0); GLOMERULAR FILTRATION RATE 48.1 (>32); GLUCOSE, FASTING 86 MG/DL (70-100); POTASSIUM SERUM 3.7 MEQ/L (3.5-5.1); SODIUM LEVEL 141 MEQ/L (136-145)
[2018-01-06] MEDS: OMEPRAZOLE 20 MG CAP PO (07:51)
[2018-01-06] MEDS: FEBUXOSTAT 40 MG TABLET (ULORIC) PO (10:37)
[2018-01-06] MEDS: SERTRALINE HCL 50 MG TAB PO (10:38)
[2018-01-06] MEDS: FUROSEMIDE 40 MG TAB PO (10:38)
[2018-01-06] MEDS: ASPIRIN 81 MG ENTERIC TAB PO (10:39)
[2018-01-06] MEDS: MAALOX 30 ML SUSP *UDC PO ×2 (14:07→20:28)
[2018-01-06] MEDS: TAMSULOSIN 0.4 MG CAP PO (20:27)
[2018-01-06] MEDS: ATORVASTATIN 20 MG TAB PO (20:27)
[2018-01-07] MEDS: ALBUTEROL SULFATE 2.5 MG/0.5 ML INH NEB SOLN INH ×5 (01:42→23:50)
[2018-01-07 05:27] LABS: IONIZED CALCIUM 4.1 MG/DL (4.5-5.3)
[2018-01-07 05:30] LABS: HEMATOCRIT 30.1 % (36.0-47.0); HEMOGLOBIN 8.7 g/dl (12.0-15.5); MEAN CORPUSCULAR HEMOGLOBIN 22.4 pg (27.0-33.0); MEAN CORPUSCULAR HGB CONC 28.9 g/dl (32.0-36.5); MEAN CORPUSCULAR VOLUME 77.6 fl (80.0-96.0); PLATELET COUNT, AUTOMATED 213 10^3/uL (150-450); RED BLOOD COUNT 3.88 10^6/uL (4.00-5.40); RED CELL DISTRIBUTION WIDTH 18.8 % (11.5-14.5); WHITE BLOOD COUNT 4.9 10^3/uL (4.0-10.0)
[2018-01-07 05:52] LABS: ANION GAP 9 MEQ/L (8-16); BLOOD UREA NITROGEN 34 MG/DL (7-18); CALCIUM LEVEL 7.6 MG/DL (8.8-10.2); CARBON DIOXIDE LEVEL 28 MEQ/L (21-32); CHLORIDE LEVEL 107 MEQ/L (98-107); CREATININE FOR GFR 0.96 MG/DL (0.55-1.30); GLOMERULAR FILTRATION RATE 59.2 (>32); GLUCOSE, FASTING 88 MG/DL (70-100); POTASSIUM SERUM 3.5 MEQ/L (3.5-5.1); SODIUM LEVEL 144 MEQ/L (136-145)
[2018-01-07] MEDS: SLF 3 ML SYR IV ×3 (06:00→21:52)
[2018-01-07] MEDS: ASPIRIN 81 MG ENTERIC TAB PO (08:00)
[2018-01-07] MEDS: FUROSEMIDE 40 MG TAB PO (08:01)
[2018-01-07] MEDS: ACETAMINOPHEN 650MG ER TAB (TYLENOL ARTHRITIS) PO ×2 (08:01→20:29)
[2018-01-07] MEDS: OMEPRAZOLE 20 MG CAP PO (08:01)
[2018-01-07] MEDS: SERTRALINE HCL 50 MG TAB PO (08:01)
[2018-01-07] MEDS: FEBUXOSTAT 40 MG TABLET (ULORIC) PO (08:01)
[2018-01-07] MEDS ORDERED: DEXTRAN/HYPROMELLOSE OPHTH SOLN 15 ML(GENTEAL TEARS) OU (10:00)
[2018-01-07] MEDS: CALCIUM GLUCONATE 1,000 MG in D5W MINI-BAG PLUS 100 ML IV (10:19)
[2018-01-07] MEDS: POTASSIUM CHLORIDE 10 MEQ SR TABLET PO (10:20)
[2018-01-07] MEDS: APIXABAN 2.5 MG TAB (ELIQUIS) PO ×2 (10:20→20:29)
[2018-01-07] MEDS: TAMSULOSIN 0.4 MG CAP PO (20:29)
[2018-01-07] MEDS: ATORVASTATIN 20 MG TAB PO (20:29)
[2018-01-08] MEDS: MAALOX 30 ML SUSP *UDC PO (02:20)
[2018-01-08] MEDS: ACETAMINOPHEN 650MG ER TAB (TYLENOL ARTHRITIS) PO (04:13)
[2018-01-08] MEDS: SLF 3 ML SYR IV (05:54)
[2018-01-08] MEDS: ALBUTEROL SULFATE 2.5 MG/0.5 ML INH NEB SOLN INH (05:59)
[2018-01-08 07:12] LABS: HEMOGLOBIN 9.2 g/dl (12.0-15.5); MEAN CORPUSCULAR HEMOGLOBIN 22.4 pg (27.0-33.0); MEAN CORPUSCULAR HGB CONC 28.8 g/dl (32.0-36.5); MEAN CORPUSCULAR VOLUME 77.9 fl (80.0-96.0); PLATELET COUNT, AUTOMATED 228 10^3/uL (150-450); RED BLOOD COUNT 4.11 10^6/uL (4.00-5.40); RED CELL DISTRIBUTION WIDTH 19.3 % (11.5-14.5); WHITE BLOOD COUNT 4.7 10^3/uL (4.0-10.0)
[2018-01-08 07:32] LABS: ANION GAP 8 MEQ/L (8-16); BLOOD UREA NITROGEN 24 MG/DL (7-18); CARBON DIOXIDE LEVEL 27 MEQ/L (21-32); CHLORIDE LEVEL 106 MEQ/L (98-107); CREATININE FOR GFR 0.81 MG/DL (0.55-1.30); GLOMERULAR FILTRATION RATE > 60.0 (>32); GLUCOSE, FASTING 90 MG/DL (70-100); POTASSIUM SERUM 3.8 MEQ/L (3.5-5.1); SODIUM LEVEL 141 MEQ/L (136-145)
[2018-01-08] MEDS: FEBUXOSTAT 40 MG TABLET (ULORIC) PO (09:00)
[2018-01-08] MEDS: APIXABAN 2.5 MG TAB (ELIQUIS) PO (09:48)
[2018-01-08] MEDS: SERTRALINE HCL 50 MG TAB PO (09:48)
[2018-01-08] MEDS: OMEPRAZOLE 20 MG CAP PO (09:48)
[2018-01-08] MEDS: FUROSEMIDE 40 MG TAB PO (09:48)
[2018-01-08] MEDS: POTASSIUM CHLORIDE 10 MEQ SR TABLET PO (09:49)
[2018-01-08] MEDS: ASPIRIN 81 MG ENTERIC TAB PO (09:49)
== END 2018-01-08 13:33 | disposition home health service (06) | DRG 392 ==
LOC: M MSPAV 01-07 21:33 → M ED 17:45 → M ED INP 19:15 → M PCU 21:17
DX: R19.7 Diarrhea, unspecified (principal); K55.1 Chronic vascular disorders of intestine; I31.3 Pericardial effusion (noninflammatory); I13.0 Hypertensive heart and chronic kidney disease with heart failure and stage 1 through stage 4 chronic kidney disease, or unspecified chronic kidney disease; N17.9 Acute kidney failure, unspecified; I50.20 Unspecified systolic (congestive) heart failure; R11.2 Nausea with vomiting, unspecified; I95.9 Hypotension, unspecified; T46.0X5A Adverse effect of cardiac-stimulant glycosides and drugs of similar action, initial encounter; I48.91 Unspecified atrial fibrillation; I25.10 Atherosclerotic heart disease of native coronary artery without angina pectoris; I25.2 Old myocardial infarction; E78.00 Pure hypercholesterolemia, unspecified; K21.9 Gastro-esophageal reflux disease without esophagitis; E87.6 Hypokalemia; M71.21 Synovial cyst of popliteal space [Baker], right knee; F32.9 Major depressive disorder, single episode, unspecified; Z95.2 Presence of prosthetic heart valve; J44.9 Chronic obstructive pulmonary disease, unspecified; Z79.899 Other long term (current) drug therapy; Z79.82 Long term (current) use of aspirin; Z88.5 Allergy status to narcotic agent; Z88.8 Allergy status to other drugs, medicaments and biological substances; E78.5 Hyperlipidemia, unspecified; M19.90 Unspecified osteoarthritis, unspecified site; Z66 Do not resuscitate; M10.9 Gout, unspecified; I73.9 Peripheral vascular disease, unspecified; F41.9 Anxiety disorder, unspecified; Z87.891 Personal history of nicotine dependence; N18.3 Chronic kidney disease, stage 3 (moderate); E83.51 Hypocalcemia

== ENCOUNTER → 2018-03-16 | Outpatient (REF) | payer OTHER ==
[2018-03-16 18:35] LABS: HEMATOCRIT 31.1 % (36.0-47.0); HEMOGLOBIN 9.2 g/dl (12.0-15.5); MEAN CORPUSCULAR HGB CONC 29.6 g/dl (32.0-36.5); MEAN CORPUSCULAR VOLUME 74.4 fl (80.0-96.0); PLATELET COUNT, AUTOMATED 292 10^3/uL (150-450); RED BLOOD COUNT 4.18 10^6/uL (4.00-5.40); RED CELL DISTRIBUTION WIDTH 21.1 % (11.5-14.5); WHITE BLOOD COUNT 5.1 10^3/uL (4.0-10.0)
[2018-03-16 18:53] LABS: ANION GAP 8 MEQ/L (8-16); BLOOD UREA NITROGEN 10 MG/DL (7-18); CALCIUM LEVEL 7.4 MG/DL (8.8-10.2); CARBON DIOXIDE LEVEL 30 MEQ/L (21-32); CHLORIDE LEVEL 101 MEQ/L (98-107); CREATININE FOR GFR 0.86 MG/DL (0.55-1.30); GLOMERULAR FILTRATION RATE > 60.0 (>32); GLUCOSE, FASTING 74 MG/DL (70-100); POTASSIUM SERUM 3.3 MEQ/L (3.5-5.1); SODIUM LEVEL 139 MEQ/L (136-145)
== END ==
LOC: M LAB REF 16:39
DX: I48.2 Chronic atrial fibrillation (principal); I11.0 Hypertensive heart disease with heart failure
CPT/HCPCS: 80048

== ENCOUNTER → 2018-04-18 | Outpatient (REF) | payer OTHER ==
[~2018-04-18] MED LIST changes: +ALBU83IN INH; +ARTI99.0 OU; -ASPI81TA83 OR; +ASPI81TA83 PO; +ASPI81TAEC PO; +AVEL1TAB3 PO; +BACITAB PO; +BENG1CRE3 EXT; -COLA100C2 OR; +COLA100C2 PO; +CORITAB5 PO; +DIGO0.12 PO; +ELIQ2.5T PO; +ELIQ5TAB PO; +FEBU40TA; +FEBU40TA PO; +FLUTISP; +FURO40TA2 PO; +GABA-843; +GABA-843 PO; +IMOD2CAP PO; +INCR1INH; +INCR1INH INH; +KLOR10TA76 PO; +LEVA1TAB2 PO; +LIPI20TA PO; +METO1TAB32 PO; +METO1TAB33 PO; +METO25TA4 PO; +NEBUMIS2 XX; +OMEP40CA2 PO; +PRED10TA2 PO; +RANI150T PO; +SERT50TA PO; -SERT50TA2 OR; +SERT50TA2 PO; +SPIR-10 PO; +SPIR1CAP INH; +SPIR50TA4 PO; +TORS20TA2 PO; +TORS5TAB2 PO; +TYLE650T35 PO; +VENTAER INH; +VICKS
[2018-04-18 18:23] LABS: HEMATOCRIT 31.2 % (36.0-47.0); HEMOGLOBIN 8.9 g/dl (12.0-15.5); MEAN CORPUSCULAR HEMOGLOBIN 21.5 pg (27.0-33.0); MEAN CORPUSCULAR HGB CONC 28.5 g/dl (32.0-36.5); MEAN CORPUSCULAR VOLUME 75.5 fl (80.0-96.0); PLATELET COUNT, AUTOMATED 322 10^3/uL (150-450); RED BLOOD COUNT 4.13 10^6/uL (4.00-5.40); WHITE BLOOD COUNT 6.4 10^3/uL (4.0-10.0)
[2018-04-18 18:38] LABS: CALCIUM LEVEL 8.2 MG/DL (8.8-10.2); CREATININE FOR GFR 1.16 MG/DL (0.55-1.30); GLOMERULAR FILTRATION RATE 47.6 (>32); POTASSIUM SERUM 4.6 MEQ/L (3.5-5.1)
== END ==
LOC: M LAB REF 16:42
PROVIDERS: ATTEND Internal Medicine Cardiovascular Disease
DX: I50.9 Heart failure, unspecified (principal); D64.9 Anemia, unspecified

== ENCOUNTER → 2018-05-16 | Outpatient (CLI) | payer OTHER ==
--- NOTE | 2018-05-16 16:30 | REP ---
PA and lateral chest: Comparison is 12/15/2017. There are bilateral pleural effusions. There are bilateral pleural effusions previously. The left pleural effusion has increased in size. There is cardiomegaly, unchanged. The lung murcia otherwise clear, unchanged. The yaw, mediastinum, skeletal structures are unchanged. Impression: The by pleural effusion has increased in size. There is a small right pleural effusion, unchanged. Chronic cardiomegaly. Electronically Signed by Oscar Vaz MD 05/16/2018 04:22 P
[2018-05-16 20:39] LABS: CALCIUM LEVEL 7.9 MG/DL (8.8-10.2); CREATININE FOR GFR 0.97 MG/DL (0.55-1.30); GLOMERULAR FILTRATION RATE 58.4 (>32); POTASSIUM SERUM 3.2 MEQ/L (3.5-5.1)
== END ==
LOC: M LRY 15:50
PROVIDERS: ATTEND Nurse Practitioner Family
DX: I25.9 Chronic ischemic heart disease, unspecified (principal); J90 Pleural effusion, not elsewhere classified; I51.7 Cardiomegaly

== ENCOUNTER → 2018-06-03 | Outpatient (REF) | payer OTHER ==
[2018-06-03 14:34] LABS: HEMATOCRIT 35.2 % (36.0-47.0); HEMOGLOBIN 10.4 g/dl (12.0-15.5); MEAN CORPUSCULAR HEMOGLOBIN 23.8 pg (27.0-33.0); MEAN CORPUSCULAR HGB CONC 29.5 g/dl (32.0-36.5); MEAN CORPUSCULAR VOLUME 80.5 fl (80.0-96.0); PLATELET COUNT, AUTOMATED 230 10^3/uL (150-450); RED BLOOD COUNT 4.37 10^6/uL (4.00-5.40); WHITE BLOOD COUNT 6.2 10^3/uL (4.0-10.0)
[2018-06-03 15:03] LABS: CALCIUM LEVEL 8.3 MG/DL (8.8-10.2); CREATININE FOR GFR 1.17 MG/DL (0.55-1.30); POTASSIUM SERUM 3.1 MEQ/L (3.5-5.1)
== END ==
LOC: M LAB REF 14:07
PROVIDERS: ATTEND Internal Medicine Cardiovascular Disease
DX: D64.9 Anemia, unspecified (principal); I50.9 Heart failure, unspecified

== ENCOUNTER → 2018-06-21 | Outpatient (REF) | payer OTHER ==
[~2018-06-21] MED LIST changes: +ASTE0.15; +EFFE20TA PO; +METO25TA PO; +TORS100T PO
[2018-06-21 19:12] LABS: CALCIUM LEVEL 8.5 MG/DL (8.8-10.2); CREATININE FOR GFR 1.26 MG/DL (0.55-1.30); GLOMERULAR FILTRATION RATE 43.2 (>32); POTASSIUM SERUM 3.5 MEQ/L (3.5-5.1)
== END ==
LOC: M LAB REF 17:37
PROVIDERS: ATTEND Internal Medicine Cardiovascular Disease
DX: Z98.61 Coronary angioplasty status (principal); I50.9 Heart failure, unspecified

== ENCOUNTER 2018-06-28 09:34 | Observation (INO) | payer MEDICARE, OTHER ==
[2018-06-28] MEDS: OMEPRAZOLE 20 MG CAP PO SCH (09:00)
[2018-06-28] MEDS: TORSEMIDE 100 MG TAB PO SCH (09:00)
[2018-06-28] MEDS: SERTRALINE HCL 50 MG TAB PO SCH (09:00)
[2018-06-28] MEDS: SPIRONOLACTONE 25 MG TAB PO SCH (09:00)
[2018-06-28] MEDS: FEBUXOSTAT 40 MG TABLET (ULORIC) PO SCH (09:00)
[2018-06-28] MEDS: METOPROLOL SUCC *XL* 25MG TAB (TopROL *XL*) PO SCH (09:00)
[~2018-06-28 09:34] MED LIST changes: -ASTE0.15; -EFFE20TA PO; -METO25TA PO; -TORS100T PO
[2018-06-28] MEDS ORDERED: ISOVUE-370 76% 125ML VIAL (Q9967 PER ML) As Ordered ONE (09:54)
[2018-06-28] MEDS ORDERED: NS 250 ML IV ONE (10:00)
[2018-06-28] MEDS ORDERED: ADACEL/BOOSTRIX VACCINE (DIPHTH/PERTUSS/ACELL/TETANUS)0.5ML SYR (90715) IM ONE (10:00)
[2018-06-28] MEDS ORDERED: fentaNYL 100 MCG/2 ML INJECTION (J3010) IV PRN (10:00)
[2018-06-28] MEDS ORDERED: ONDANSETRON 4MG/2ML VIAL (J2405) IV ONE ×2 (10:00→12:45)
[2018-06-28 10:18] LABS: BASO % 0.2 % (0.0-1.0); EOS % 0.2 % (0.0-3.0); HEMATOCRIT 41.4 % (36.0-47.0); HEMOGLOBIN 12.7 g/dl (12.0-15.5); LYMPH # 1.9 10^3/uL (1.5-4.5); LYMPH % 29.9 % (24.0-44.0); MEAN CORPUSCULAR HEMOGLOBIN 25.8 pg (27.0-33.0); MEAN CORPUSCULAR HGB CONC 30.7 g/dl (32.0-36.5); MEAN CORPUSCULAR VOLUME 84.1 fl (80.0-96.0); MONO # 0.4 10^3/uL (0.0-0.8); MONO % 6.8 % (0.0-5.0); NEUTROPHILS % 62.4 % (36.0-66.0); PLATELET COUNT, AUTOMATED 199 10^3/uL (150-450); RED BLOOD COUNT 4.92 10^6/uL (4.00-5.40); WHITE BLOOD COUNT 6.4 10^3/uL (4.0-10.0)
[2018-06-28 10:34] LABS: INR 1.12; PARTIAL THROMBOPLASTIN TIME 29.8 SECONDS (25.4-37.6); PROTHROMBIN TIME 14.6 SECONDS (12.1-14.4)
[2018-06-28 10:46] LABS: ALBUMIN 3.6 GM/DL (3.2-5.2); BILIRUBIN,DIRECT 0.2 MG/DL (0.0-0.2); BILIRUBIN,TOTAL 0.8 MG/DL (0.2-1.0); CALCIUM LEVEL 8.8 MG/DL (8.8-10.2); CREATININE FOR GFR 1.27 MG/DL (0.55-1.30); GLOMERULAR FILTRATION RATE 42.8 (>32); MB/CK RELATIVE INDEX 3.24 (< OR =4); TOTAL PROTEIN 6.5 GM/DL (6.4-8.2); TROPONIN I 0.02 NG/ML (< 0.10)
--- NOTE | 2018-06-28 10:46 | REP ---
CT Head without contrast HISTORY: Fall COMPARISON: 04/27/2011 Areas of decreased attenuation are present in the periventricular white matter. This represents small-vessel ischemic disease. There is no intraparenchymal hemorrhage, acute infarct, mass or midline shift. The ventricular system and cortical sulci are dilated consistent with mild volume loss. There is no extra cerebral collection. There is no fracture. The visualized sinuses are clear. IMPRESSION: 1. Small vessel ischemic disease. 2. Mild volume loss. Electronically Signed by Erasto Jiménez MD 06/28/2018 10:37 A
--- NOTE | 2018-06-28 10:56 | REP ---
CT cervical spine without contrast HISTORY: Fall COMPARISON: 06/16/2010 There is no acute fracture or subluxation. Disc bulges are present at the C2-3 and C4-5 levels. Disc bulges with associated osteophyte formation are present at the C3-4, C5-6 and C6-7 levels. There is minimal narrowing of the spinal canal. Uncinate process and/or facet hypertrophy are present at the C2-3 through C7-T1 levels. These findings produce minimal to moderate narrowing of the neural foramina. The C3-4 through C6-7 intervertebral discs are decreased in height consistent with disc degeneration. There are 2 mm of anterior subluxation of C4-5. IMPRESSION: 1. There is no acute fracture or subluxation. 2. There is cervical spondylosis at the C2-3 through C7-T1 levels. Electronically Signed by Erasto Jiménez MD 06/28/2018 10:48 A
[2018-06-28] MEDS ORDERED: POTASSIUM CHLORIDE 10 MEQ SR TABLET PO ONE (11:15)
[2018-06-28] MEDS ORDERED: SPIR-10 PO (11:29)
[2018-06-28] MEDS ORDERED: EFFE20TA PO (11:29)
[2018-06-28] MEDS ORDERED: TORS100T PO (11:29)
[2018-06-28] MEDS ORDERED: ASTE0.15 (11:29)
[2018-06-28] MEDS ORDERED: METO25TA PO (11:29)
--- NOTE | 2018-06-28 11:29 | REP ---
CT CHEST WITH IV CONTRAST: HISTORY: Trauma. CT CONTRAST DOSE: 100 mL of intravenous Isovue [address] FINDINGS: Preliminary digital spinning bath person radiograph shows cardiomegaly. There is no evidence of pneumothorax or hemothorax. There is only a tiny sliver of pleural fluid. A small pericardial effusion is seen. Four-chamber cardiomegaly is observed. There is reflux of contrast opacified blood into the inferior vena cava and hepatic veins consistent with right heart failure. There is no evidence of aortic dissection or aneurysm. Vascular calcification and tortuosity is seen. Air and fluid are seen in the esophagus. There is no evidence of mediastinal hematoma. There is evidence of an old healed rib fracture on the right anteriorly. No acute rib fracture or other skeletal fracture is appreciated. No evidence of pulmonary contusion or laceration is seen. There is some mild linear discoid atelectasis or fibrosis in the left lung base. IMPRESSION: Small amount of pericardial fluid and a tiny sliver of pleural fluid noted bilaterally. Cardiomegaly with evidence of right heart failure. Discoid atelectasis versus linear fibrosis left base. No traumatic abnormality noted. Electronically Signed by Long Harry MD 06/28/2018 11:33 A
[2018-06-28] MEDS ORDERED: POTASSIUM CHLORIDE 10% LIQ 20 MEQ/15 ML UDC PO ONE (11:30)
[2018-06-28] MEDS ORDERED: METO1TAB32 PO (11:30)
--- NOTE | 2018-06-28 11:32 | REP ---
Left humerus: Two views. History: Trauma. Findings: There is diffuse osteopenia. Two views of the left humerus show no evidence of fracture or subluxation. Vascular calcifications noted. Impression: No traumatic abnormality. Diffuse osteopenia. Electronically Signed by Long Harry MD 06/28/2018 11:23 A
--- NOTE | 2018-06-28 11:33 | REP ---
Portable chest x-ray: Single view. History: Trauma. Comparison study: May 16, 2018. Findings: Moderate to marked cardiomegaly is observed unchanged. The previously noted pleural effusions have resolved. Pleural angles are sharp today. No pneumothorax is seen. The aorta is calcific and tortuous unchanged. Vascular calcifications noted. No infiltrate or contusion is seen. Impression: Moderate to marked cardiomegaly. Vascular calcification. Otherwise no acute disease. Electronically Signed by Long Harry MD 06/28/2018 11:24 A
--- NOTE | 2018-06-28 11:35 | REP ---
Left forearm: Two views. History: Trauma. Findings: AP and lateral views of the left forearm are presented. There is a collection of calcific opacities projecting within the subcutaneous soft tissues overlying the proximal ulna. Opaque foreign bodies must be suspected. No fracture is seen. There is diffuse osteopenia. Impression: No fracture noted. Suspect soft-tissue foreign bodies imbedded over the proximal ulna. Electronically Signed by Long Harry MD 06/28/2018 11:26 A
--- NOTE | 2018-06-28 11:35 | REP ---
Left hip: Two views. History: Trauma. Findings: AP and frog-leg views of the left hip show diffuse osteopenia. There are surgical clips in the left groin soft tissues. Vascular calcifications noted. No fractures seen. Impression: No traumatic abnormality. Diffuse osteopenia. Electronically Signed by Long Harry MD 06/28/2018 11:27 A
--- NOTE | 2018-06-28 11:37 | REP ---
CT ABDOMEN AND PELVIS WITH IV BUT WITHOUT ORAL CONTRAST: HISTORY: Trauma. Comparison CT study July 06, 2015. CT FINDINGS: Digital chief architect radiograph demonstrates the hands folded across the abdomen. The patient was apparently unable to raise her arms. Cardiomegaly is observed. Spleen is somewhat enlarged measuring 17 cm in oblique craniocaudal span. The spleen is somewhat larger than on the prior study. No focal liver lesion is seen. There is contrast opacified blood refluxing into the intrahepatic segment of the inferior vena cava and hepatic veins are opacified consistent with right heart failure or strain. The gallbladder is surgically absent. There is no evidence of hepatic or splenic injury. The kidneys enhance symmetrically and are morphologically intact. No pancreatic hematoma or mass lesion is observed. The infrarenal abdominal aorta is mildly dilated as before. 2.5 cm AP dimension. The aorta and iliac arteries are tortuous but not aneurysmal distally. There is evidence of a left inguinal hernia containing a tubular soft tissue density consistent with a small bowel loop. This is a new finding from prior study. The tubular density could conceivably be venous varicosities. There is left colonic diverticulosis. No other bowel abnormality is seen. The appendix is not directly visualized but there is no CT evidence of appendicitis. Bone window settings show degenerative spondylosis changes in the lumbar spine. No traumatic bony abnormality. There is old wedging involving the superior endplate of L2. There is diffuse osteopenia. IMPRESSION: No traumatic abnormality noted. Splenic enlargement and a probable left inguinal hernia noted as incidental findings. Electronically Signed by Long Harry MD 06/28/2018 02:55 P
[2018-06-28] MEDS ORDERED: ELIQ2.5T PO (12:41)
[2018-06-28] MEDS ORDERED: fentaNYL 100 MCG/2 ML INJECTION (J3010) IV ONE (12:45)
[2018-06-28] MEDS ORDERED: metOLazone 2.5 MG TAB PO PRN (14:00)
[2018-06-28] MEDS ORDERED: ALBUTEROL 90 MCG/ACT 8GM HFA INHALER INH PRN (14:00)
[2018-06-28] MEDS ORDERED: ALBUTEROL SULFATE 2.5 MG/0.5 ML INH NEB SOLN INH PRN (14:00)
[2018-06-28] MEDS ORDERED: POLYVINYL ALCOHOL OPHTH SOLN 15 ML(LIQUITEARS) OU PRN (14:00)
[2018-06-28] MEDS ORDERED: AZELASTINE 137MCG NASAL SPY 30 ML (ASTELIN) PRN (14:00)
[2018-06-28] MEDS: NS 1,000 ML IV SCH ×2 (14:18→21:02)
[2018-06-28 15:15] LABS: TOTAL 25(OH) VITAMIN D 17.2 NG/ML (30.0-100.0)
[2018-06-28] MEDS ORDERED: NS 500 ML IV ONE (15:15)
--- NOTE | 2018-06-28 15:40 | HPE ---
DATE OF ADMISSION: 06/28/2018 An 83-year-old female with a past medical history of coronary artery disease status post myocardial infarction (IA) with five stents, history of hypertension, hyperlipidemia, non-oxygen dependent chronic obstructive pulmonary disease (COPD), presents to the emergency room after having mechanical fall at home. She apparently slipped and fell backwards and hit the top of her head and her left side. She came to the emergency room (ER) for evaluation. CT of the cervical spine and head were all negative as well as all the x-rays did not show any fractures; however, the patient had a very hard time walking and was in a lot of pain. Patient was given intravenous (IV) fentanyl 25 times two. At this time her pain scale is 3/10. She denies any chest pain or shortness of breath. She did not have a syncopal event during the fall. She will be admitted for further management. PAST MEDICAL HISTORY: 1. Coronary artery disease status post IA with five stents placed. 2. Hypertension. 3. Hyperlipidemia. 4. Mesenteric ischemia status post mesenteric angioplasty of the superior mesenteric artery. 5. Non-oxygen dependent chronic obstructive pulmonary disease (COPD). 6. Right Ardon's cyst. 7. History of gastroesophageal reflux disease (GERD). 8. Gout. 9. Osteoarthritis. 10. Depression. 11. Pericardial effusion status post pericardial window at [facility] on 12/01/2017. 12. History of cholecystectomy. DRUG ALLERGIES: GUAIFENESIN, CODIENE, MEPERIDINE, CYCLOBENZAPRINE. FAMILY HISTORY: Noncontributory. SOCIAL HISTORY: Patient smoked two packs a day for 50 years; quit May 2006. Denies alcohol or illicit drugs. HOME MEDICATIONS: - Tylenol 650 mg orally every 8 hours as needed - albuterol as needed - apixaban 2.5 mg orally twice daily - artificial tears as needed - aspirin 81 mg orally daily - atorvastatin 20 mg orally at bedtime - Astepro two sprays each nostril daily as needed - potassium 20 mEq orally daily - febuxostat 40 mg orally daily - gabapentin 300 mg orally at bedtime - Incruse Ellipta one puff inhaled daily - metolazone 2.5 mg orally as directed - metoprolol 20 mg orally daily - omeprazole 40 mg orally daily - ranitidine one tablet orally at bedtime - sertraline 50 mg orally daily - Aldactone 50 mg orally daily - torsemide 100 mg orally daily REVIEW OF SYSTEMS: Negative for [id number] systems except what is mentioned in the history of present illness (HPI). VITAL SIGNS: Blood pressure 94/50, heart rate is 90 and regular, respiratory rate is 18, temperature 97.9, oxygen saturation is 95% on room air HEAD: There is a small ecchymotic area in the occipital portion of the skull. No skin break. NECK: Supple. No jugular venous distention (JVD). LUNGS: Clear to auscultation. HEART: S1, S2 audible. No murmurs appreciated. ABDOMEN: Soft. Positive bowel sounds. No pedal edema. SKIN: Intact. NEUROLOGIC: Patient awake, alert, oriented times three. LABORATORY DATA: WBC 6.4, hemoglobin 12.7, hematocrit 41.4, platelets are 199,000. Sodium 135, potassium 3.0, chloride 89, CO2 of 28, BUN is 48, creatinine 1.27, lactic acid 2.1. AST 20, ALT 18. IMPRESSION: 1. Fall. 2. Hypokalemia. PLAN: Patient will be admitted to the medical/surgical floor. Will have physical therapy (PT) see her in the morning. Will optimize her pain management with pain medications. Continue preadmission medications. I believe her hypokalemia is secondary to the metolazone. It is a very powerful diuretic as well as notorious for causing hypokalemia. Will replete the potassium stores and follow basic metabolic panel (BMP) in the morning. Will continue IV fluids on her. I believe she is on the dry side due to likely the diuretics and her elevated lactic acid. Will continue following her care on the medical/surgical floor.
[2018-06-28 17:00] VITALS: BP 106/57
--- NOTE | 2018-06-28 19:55 | ECGEPIP ---
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
[2018-06-28] MEDS: GABAPENTIN 300 MG CAP PO SCH (21:01)
[2018-06-28] MEDS: APIXABAN 2.5 MG TAB (ELIQUIS) PO SCH (21:01)
[2018-06-28] MEDS: FAMOTIDINE 20 MG TAB PO SCH (21:01)
[2018-06-28] MEDS: ATORVASTATIN 20 MG TAB PO SCH (21:01)
[2018-06-28] MEDS: ACETAMINOPHEN 650MG ER TAB (TYLENOL ARTHRITIS) PO PRN (21:02)
[2018-06-28 22:00] VITALS: BP 104/59
[2018-06-29] MEDS: ACETAMINOPHEN 650MG ER TAB (TYLENOL ARTHRITIS) PO PRN (04:59)
[2018-06-29 06:00] VITALS: BP_SYST 108; BP_SYST 89; BP_DIAS 53; BP_DIAS 58
[2018-06-29] MEDS: NS 1,000 ML IV SCH (06:46)
[2018-06-29 07:08] LABS: CALCIUM LEVEL 7.9 MG/DL (8.8-10.2); CREATININE FOR GFR 1.16 MG/DL (0.55-1.30); GLOMERULAR FILTRATION RATE 47.5 (>32)
[2018-06-29] MEDS ORDERED: POTASSIUM CHLORIDE 10 MEQ SR TABLET PO ONE ×2 (09:00→18:00)
[2018-06-29] MEDS: OMEPRAZOLE 20 MG CAP PO SCH (10:42)
[2018-06-29] MEDS: SERTRALINE HCL 50 MG TAB PO SCH (10:42)
[2018-06-29] MEDS: APIXABAN 2.5 MG TAB (ELIQUIS) PO SCH ×2 (10:42→20:53)
[2018-06-29] MEDS: ASPIRIN 81 MG ENTERIC TAB PO SCH ×2 (10:42→10:44)
[2018-06-29] MEDS: FEBUXOSTAT 40 MG TABLET (ULORIC) PO SCH (10:42)
[2018-06-29] MEDS: METOPROLOL SUCC *XL* 25MG TAB (TopROL *XL*) PO SCH (10:44)
[2018-06-29] MEDS: SPIRONOLACTONE 25 MG TAB PO SCH (10:44)
[2018-06-29] MEDS: TORSEMIDE 100 MG TAB PO SCH (10:44)
[2018-06-29] MEDS: ACETAMINOPHEN 500 MG TAB PO PRN ×3 (10:55→22:20)
[2018-06-29] MEDS ORDERED: NS 1,000 ML IV SCH (12:15)
--- NOTE | 2018-06-29 13:13 | IPNPDOC ---
Subjective Date Seen The patient was seen on 06/29/18. Subjective Chief Complaint/HPI Patient seen and examined at the bedside. She states that she is feeling better today, and was able to work with physical therapy but this morning. However, the patient does remain borderline hypotensive this morning despite not receiving any of her blood pressure medications. Patient denies any focal complaints at this time. Objective Physical Examination General Exam: Positive: Alert, Cooperative, No Acute Distress ENT Exam: Positive: Atraumatic, Mucous membr. moist/pink Chest Exam: Positive: Clear to auscultation, Normal air movement Heart Exam: Positive: Rate Normal, Normal S1, Normal S2 Abdomen Exam: Positive: Soft; Negative: Tenderness Extremity Exam: Positive: Tenderness; Negative: Swelling Psych Exam: Positive: Oriented x 3 Assessment /Plan Plan/VTE VTE Prophylaxis Ordered?: Yes Plan Near Syncopal Episode, Fall Possibly 2/2 Dehydration from Overduresis---patient states that she has lost nearly 20 lbs since her last admission, and has been feeling lightheaded/dizzy The patient has lost about 8 kgs since her last admission in 01/2018 In addition the patient has been noted to be hypotensive this morning with elevated lactic acid level The patient does not exhibit any signs/symptoms of infection at this time We will hold the patient's diuretics, and provide judicious IV fluid hydration in view of her underlying CHF Orthostatic vitals ordered Physical therapy on board for functional optimization Lactic Acidosis 2/2 Overdiuresis, Dehydration Gentle IVF hydration as noted above Diastolic CHF, Severe Tricuspid Regurg, Mod-Severe Pulm HTN We will hold diuretics 2/2 above and keep a close eye on her respiratory/volume status CKD Stage IIIA Serum Cr at baseline Atrial Fibrillation On Eliquis, Metoprolol History of coronary artery disease s/p stenting Continue aspirin, metoprolol, statin Hypercholesterolemia. Continue on atorvastatin. Hx of COPD, stable Albuterol prn History of mesenteric ischemia, status post mesenteric angioplasty superior mesenteric artery History of neuropathy Continue gabapentin History of gout Continue uloric Anxiety/depression Continue sertraline DVT prophylaxis on Eliquis Disposition-pending clinical improvement. VS, I&O, 24H, Fishbone Vital Signs/I&O Vital Signs Date Time Temp Pulse Resp B/P (MAP) Pulse Ox O2 Delivery O2 Flow Rate FiO2 06/29/18 11:08 0.0 06/29/18 10:44 70 89/53 06/29/18 06:00 98.0 16 93 I&O- Last 24 Hours up to 6 AM 06/29/18 06:00 Intake Total 1640 ml Output Total 0 ml Balance 1640 ml Laboratory Data 24H LABS Laboratory Tests 2 06/28/18 14:30: Lactic Acid Followup at 4 Hours 3.1*H, Vitamin B12 Level 195L, 25-Hydroxy Vitamin D Total 17.2L 06/29/18 06:23: Anion Gap 7L, Glomerular Filtration Rate 47.5, Blood Urea Nitrogen 41H, Creatinine 1.16, Sodium Level 138, Potassium Level 3.0L, Chloride Level 98, Carbon Dioxide Level 33H, Calcium Level 7.9L 06/29/18 11:22: Lactic Acid Level 3.3*H CBC/BMP Laboratory Tests 06/29/18 06:23 Calcium Level 7.9 L PONCHO CORONA MD Jun 29, 2018 13:13
[2018-06-29 14:00] VITALS: BP 104/65
[2018-06-29 14:33] VITALS: BP_SYST 107; BP_SYST 111; BP_SYST 124; BP_DIAS 53; BP_DIAS 58; BP_DIAS 59
[2018-06-29] MEDS ORDERED: SENNA 8.6 MG TAB (SENOKOT) PO PRN (16:45)
[2018-06-29] MEDS: GABAPENTIN 300 MG CAP PO SCH (20:53)
[2018-06-29] MEDS: FAMOTIDINE 20 MG TAB PO SCH (20:53)
[2018-06-29] MEDS: ATORVASTATIN 20 MG TAB PO SCH (20:53)
[2018-06-29 22:00] VITALS: BP 98/53
[2018-06-29 22:05] VITALS: BP 104/56
[2018-06-30] MEDS: ACETAMINOPHEN 500 MG TAB PO PRN ×3 (03:50→14:20)
[2018-06-30 06:00] VITALS: BP 130/68
[2018-06-30] MEDS: OMEPRAZOLE 20 MG CAP PO SCH (08:53)
[2018-06-30] MEDS: TORSEMIDE 100 MG TAB PO SCH (08:53)
[2018-06-30 08:56] VITALS: BP 108/60
[2018-06-30] MEDS: ASPIRIN 81 MG ENTERIC TAB PO SCH (08:56)
[2018-06-30] MEDS: METOPROLOL SUCC *XL* 25MG TAB (TopROL *XL*) PO SCH (08:56)
[2018-06-30] MEDS: FEBUXOSTAT 40 MG TABLET (ULORIC) PO SCH (08:56)
[2018-06-30] MEDS: SPIRONOLACTONE 25 MG TAB PO SCH (08:57)
[2018-06-30] MEDS: SERTRALINE HCL 50 MG TAB PO SCH (08:57)
[2018-06-30] MEDS: APIXABAN 2.5 MG TAB (ELIQUIS) PO SCH (08:57)
[2018-06-30] MEDS ORDERED: CYANOCOBALAMIN 1,000 MCG/ML VIAL (J3420) IM SCH (09:00)
[2018-06-30 09:02] LABS: BASO % 0.2 % (0.0-1.0); EOS % 0.3 % (0.0-3.0); HEMATOCRIT 40.6 % (36.0-47.0); HEMOGLOBIN 12.3 g/dl (12.0-15.5); LYMPH # 1.5 10^3/uL (1.5-4.5); LYMPH % 25.1 % (24.0-44.0); MEAN CORPUSCULAR HEMOGLOBIN 26.2 pg (27.0-33.0); MEAN CORPUSCULAR HGB CONC 30.3 g/dl (32.0-36.5); MEAN CORPUSCULAR VOLUME 86.6 fl (80.0-96.0); MONO # 0.4 10^3/uL (0.0-0.8); MONO % 5.7 % (0.0-5.0); NEUTROPHILS # 4.2 10^3/uL (1.8-7.7); NEUTROPHILS % 68.4 % (36.0-66.0); PLATELET COUNT, AUTOMATED 161 10^3/uL (150-450); RED BLOOD COUNT 4.69 10^6/uL (4.00-5.40); WHITE BLOOD COUNT 6.1 10^3/uL (4.0-10.0)
[2018-06-30 09:30] LABS: CALCIUM LEVEL 8.3 MG/DL (8.8-10.2); CREATININE FOR GFR 0.97 MG/DL (0.55-1.30); GLOMERULAR FILTRATION RATE 58.4 (>32); POTASSIUM SERUM 3.3 MEQ/L (3.5-5.1)
[2018-06-30] MEDS ORDERED: POTASSIUM CHLORIDE 10 MEQ SR TABLET PO ONE (12:00)
[2018-06-30] MEDS ORDERED: B-12100010 PO (13:44)
--- NOTE | 2018-06-30 22:23 | IPNPDOC ---
Subjective Date Seen The patient was seen on 06/30/18. Subjective Chief Complaint/HPI Mechanical fall at home. She apparently slipped and fell backwards and hit the top of her head and her left side. Events since last encounter No complaints today except for some generalized pain. Has been cleared by PT. Objective Physical Examination General Exam: Positive: Alert, Cooperative, No Acute Distress ENT Exam: Positive: Atraumatic, Mucous membr. moist/pink Chest Exam: Positive: Clear to auscultation, Normal air movement Heart Exam: Positive: Rate Normal, Normal S1, Normal S2 Abdomen Exam: Positive: Soft; Negative: Tenderness Extremity Exam: Positive: Tenderness; Negative: Swelling Psych Exam: Positive: Oriented x 3 Assessment /Plan Assessment Mechanical Fall with severe pain and difficulty in ambulation Patient says she tripped and fell backwards. Denied any presyncopal symptoms or any syncope Orthostatics negative pain now well controlled with extra strength tylenol and she has cleared PT. Lactic Acidosis Possibly 2/2 Overdiuresis and mild Dehydration resolved after hydration Diastolic CHF, Severe Tricuspid Regurg, Mod-Severe Pulm HTN restarted diuretics. CKD Stage IIIA Serum Cr at baseline Atrial Fibrillation On Eliquis, Metoprolol History of coronary artery disease s/p stenting Continue aspirin, metoprolol, statin Hypercholesterolemia. Continue on atorvastatin. Hx of COPD, stable Albuterol prn History of mesenteric ischemia, status post mesenteric angioplasty superior mesenteric artery History of neuropathy Continue gabapentin History of gout Continue uloric Anxiety/depression Continue sertraline DVT prophylaxis on Eliquis Disposition : Home with continuation of home PT and resumption of home services. Plan/VTE VTE Prophylaxis Ordered?: Yes VS, I&O, 24H, Fishbone Vital Signs/I&O Vital Signs Date Time Temp Pulse Resp B/P (MAP) Pulse Ox O2 Delivery O2 Flow Rate FiO2 06/30/18 08:56 72 108/60 06/30/18 06:00 97.6 18 93 06/29/18 21:00 0.0 I&O- Last 24 Hours up to 6 AM 06/30/18 06:00 Intake Total 2211 ml Output Total 0 ml Balance 2211 ml Laboratory Data 24H LABS Laboratory Tests 2 06/30/18 08:32: Immature Granulocyte % (Auto) 0.3, White Blood Count 6.1, Red Blood Count 4.69, Hemoglobin 12.3, Hematocrit 40.6, Mean Corpuscular Volume 86.6, Mean Corpuscular Hemoglobin 26.2L, Mean Corpuscular Hemoglobin Concent 30.3L, Red Cell Distribution Width 24.1H, Platelet Count 161, Neutrophils (%) (Auto) 68.4H, Lymphocytes (%) (Auto) 25.1, Monocytes (%) (Auto) 5.7H, Eosinophils (%) (Auto) 0.3, Basophils (%) (Auto) 0.2, Neutrophils # (Auto) 4.2, Lymphocytes # (Auto) 1.5, Monocytes # (Auto) 0.4, Eosinophils # (Auto) 0.0, Basophils # (Auto) 0.0, Nucleated Red Blood Cells % (auto) 0.0, Anion Gap 11, Glomerular Filtration Rate 58.4, Blood Urea Nitrogen 28H, Creatinine 0.97, Sodium Level 141, Potassium Level 3.3L, Chloride Level 103, Carbon Dioxide Level 27, Calcium Level 8.3L CBC/BMP Laboratory Tests 06/30/18 08:32 Red Blood Count 4.69, Mean Corpuscular Volume 86.6, Mean Corpuscular Hemoglobin 26.2 L, Mean Corpuscular Hemoglobin Concent 30.3 L, Red Cell Distribution Width 24.1 H, Neutrophils (%) (Auto) 68.4 H, Lymphocytes (%) (Auto) 25.1, Monocytes (%) (Auto) 5.7 H, Eosinophils (%) (Auto) 0.3, Basophils (%) (Auto) 0.2, Neutrophils # (Auto) 4.2, Lymphocytes # (Auto) 1.5, Monocytes # (Auto) 0.4, Eosinophils # (Auto) 0.0, Basophils # (Auto) 0.0, Calcium Level 8.3 L POPEYE ESPARZA MD Jun 30, 2018 22:23
== END 2018-06-30 14:29 | disposition home or self-care (01) ==
LOC: M ED 09:34 → M ED INP 13:53 → M MSPAV 16:50
PROVIDERS: ADMIT Internal Medicine; ATTEND Internal Medicine Nephrology
DX: S09.90XA Unspecified injury of head, initial encounter (principal); S40.812A Abrasion of left upper arm, initial encounter; W19.XXXA Unspecified fall, initial encounter; Y92.013 Bedroom of single-family (private) house as the place of occurrence of the external cause; Y93.9 Activity, unspecified; Y99.9 Unspecified external cause status; I11.9 Hypertensive heart disease without heart failure; I25.10 Atherosclerotic heart disease of native coronary artery without angina pectoris; I25.2 Old myocardial infarction; Z98.61 Coronary angioplasty status; I48.91 Unspecified atrial fibrillation; K21.9 Gastro-esophageal reflux disease without esophagitis; F32.9 Major depressive disorder, single episode, unspecified; F41.9 Anxiety disorder, unspecified; Z79.899 Other long term (current) drug therapy; E87.6 Hypokalemia; J44.9 Chronic obstructive pulmonary disease, unspecified; E78.5 Hyperlipidemia, unspecified; Z79.01 Long term (current) use of anticoagulants; I50.30 Unspecified diastolic (congestive) heart failure; Z87.891 Personal history of nicotine dependence
CPT/HCPCS: 36415; 70450; 71045; 71260; 72125; 73060; 73090; 73502; 74177; 80048; 80076; 82150; 82306; 82550; 82553; 82607; 83605; 83690; 83735; 84484; 85025; 85610; 85730; 86850; 86900; 86901; 90471; 90715; 93005; 93041; 94760; 96361; 96374; 96375; 96376; 97161; 97530; 99285; G0378; J2405; J3010; Q9967

== ENCOUNTER → 2018-07-08 | Outpatient (REF) | payer MEDICARE ==
[~2018-07-08] MED LIST changes: -/CELE20CA PO; -/TIOT18INH INH; +ASTE0.15; +B-12100010 PO; +CELE1CAP4 PO; +EFFE20TA PO; +METO25TA PO; +SERT-141 PO; -SERT50TA PO; +TORS100T PO
[2018-07-08 19:24] LABS: CALCIUM LEVEL 8.4 MG/DL (8.8-10.2); CREATININE FOR GFR 1.11 MG/DL (0.55-1.30); POTASSIUM SERUM 3.6 MEQ/L (3.5-5.1)
== END ==
LOC: M LAB REF 17:43
PROVIDERS: ATTEND Nurse Practitioner Family
DX: N18.3 Chronic kidney disease, stage 3 (moderate) (principal)

== ENCOUNTER → 2019-01-23 | Outpatient (REF) | payer MEDICARE ==
[~2019-01-23] MED LIST changes: -ARTI99.0 OU; +ARTIDRO2 OU; -FEBU40TA; -FEBU40TA PO; +FEBU40TA4; +FEBU40TA4 PO; -OMEP40CA2 PO; +OMEP40CA97 PO
[2019-01-23 19:25] LABS: HEMOGLOBIN 13.8 g/dl (12.0-15.5); MEAN CORPUSCULAR HEMOGLOBIN 29.4 pg (27.0-33.0); MEAN CORPUSCULAR HGB CONC 32.9 g/dl (32.0-36.5); MEAN CORPUSCULAR VOLUME 89.4 fl (80.0-96.0); PLATELET COUNT, AUTOMATED 249 10^3/uL (150-450); WHITE BLOOD COUNT 11.5 10^3/uL (4.0-10.0)
[2019-01-23 19:32] LABS: ALBUMIN 3.9 GM/DL (3.2-5.2); ALT/SGPT 20 U/L (12-78); BILIRUBIN,TOTAL 0.9 MG/DL (0.2-1.0); BLOOD UREA NITROGEN 60 MG/DL (7-18); C REACTIVE PROTEIN QUANTITATIV < 0.30 MG/DL (0.00-0.30); CALCIUM LEVEL 9.2 MG/DL (8.8-10.2); CARBON DIOXIDE LEVEL 33 MEQ/L (21-32); CHLORIDE LEVEL 83 MEQ/L (98-107); CREATININE FOR GFR 1.69 MG/DL (0.55-1.30); GLOMERULAR FILTRATION RATE 30.8 (>32); GLUCOSE, FASTING 88 MG/DL (70-100); LDH LACTATE DEHYDROGENASE 192 U/L (84-246); POTASSIUM SERUM 3.7 MEQ/L (3.5-5.1); SODIUM LEVEL 125 MEQ/L (136-145); TOTAL PROTEIN 7.1 GM/DL (6.4-8.2)
[2019-01-23 19:49] LABS: APPEARANCE, URINE CLEAR (CLEAR); BACTERIA, URINE AUTO NEGATIVE (NEGATIVE); BILIRUBIN, URINE AUTO NEGATIVE (NEGATIVE); BLOOD, URINE BLOOD NEGATIVE (NEGATIVE); COLOR, URINE YELLOW (YELLOW); GLUCOSE, URINE (UA) AUTO NEGATIVE (NEGATIVE); KETONE, URINE AUTO NEGATIVE (NEGATIVE); LEUKOCYTE ESTERASE, URINE AUTO 1+ (NEGATIVE); NITRITE, URINE AUTO NEGATIVE (NEGATIVE); PROTEIN, URINE AUTO NEGATIVE (NEGATIVE); RBC, URINE AUTO 15 /HPF (0-3); SPECIFIC GRAVITY URINE AUTO 1.006 (1.002-1.035); SQUAMOUS EPITHELIAL CELL UR AU 0 /HPF (0-6); UROBILINOGEN, URINE AUTO 0.2 mg/dL (0.0-2.0); WBC, URINE AUTO 2 /HPF (0-3)
[2019-01-23 20:04] LABS: ERYTHROCYTE SEDIMENTATION RATE 16 mm/hr (0-30)
== END ==
LOC: M LABDRAW1 18:52
PROVIDERS: ATTEND Family Medicine
DX: R63.4 Abnormal weight loss (principal)

== ENCOUNTER → 2019-09-21 | Outpatient (CLI) | payer MEDICARE ==
[~2019-09-21] MED LIST changes: +ACET650T61 PO; -ARTIDRO2 OU; -DIGO0.12 PO; +DIGO0.123 PO; +GABA-282; +GABA-282 PO; -GABA-843; -GABA-843 PO; +NYST50SS PO; +POLYOPD OU; +PRED20TA; +SUCR1SS PO; -TYLE650T35 PO
[2019-09-21 17:20] LABS: HEMATOCRIT 41.1 % (36.0-47.0); HEMOGLOBIN 13.2 g/dl (12.0-15.5); MEAN CORPUSCULAR HEMOGLOBIN 31.2 pg (27.0-33.0); MEAN CORPUSCULAR HGB CONC 32.1 g/dl (32.0-36.5); MEAN CORPUSCULAR VOLUME 97.2 fl (80.0-96.0); PLATELET COUNT, AUTOMATED 183 10^3/uL (150-450); RED BLOOD COUNT 4.23 10^6/uL (4.00-5.40); WHITE BLOOD COUNT 7.3 10^3/uL (4.0-10.0)
[2019-09-21 17:52] LABS: ALBUMIN 3.7 GM/DL (3.2-5.2); CALCIUM LEVEL 8.6 MG/DL (8.8-10.2); CREATININE FOR GFR 1.1 MG/DL (0.55-1.30); FREE T3 2.6 PG/ML (2.2-4.0); FREE T4 1.11 NG/DL (0.76-1.46); GLOMERULAR FILTRATION RATE 50.4 (>32); POTASSIUM SERUM 4.4 MEQ/L (3.5-5.1); THYROID STIMULATING HORMONE 3.59 uIU/ML (0.358-3.740); TOTAL PROTEIN 6.4 GM/DL (6.4-8.2)
== END ==
LOC: M LRY 16:02
PROVIDERS: ATTEND Family Medicine
DX: N18.3 Chronic kidney disease, stage 3 (moderate) (principal); E87.1 Hypo-osmolality and hyponatremia; E07.9 Disorder of thyroid, unspecified

== ENCOUNTER 2019-10-08 14:42 | Emergency (ER) | payer MEDICARE ==
[~2019-10-08] VITALS: Ht 154.9 cm; Wt 56.1 kg
[~2019-10-08 14:42] MED LIST changes: -NYST50SS PO; -PRED20TA; -SUCR1SS PO
[2019-10-08] MEDS ORDERED: PRED20TA (14:49)
[2019-10-08] MEDS ORDERED: NS 1,000 ML IV SCH (15:00)
--- NOTE | 2019-10-08 16:42 | REP ---
Clinical: Sore throat. Technique: AP and lateral soft tissue neck radiographs. Findings: Evaluation is limited by underpenetration, degenerative changes of the cervical spine, and extensive chronic soft tissue and thyroid calcifications. The airway appears patent. Impression: Limited examination. Airway appears patent. Electronically Signed by Pedrito Martinez MD 10/08/2019 04:34 P
[2019-10-08] MEDS ORDERED: SUCRALFATE SUSP 1GM/10ML UD PO ONE (16:45)
[2019-10-08] MEDS ORDERED: ISOVUE-370 76% 100ML VIAL As Ordered ONE (17:32)
[2019-10-08 17:33] LABS: BASO % 0.1 % (0.0-1.0); HEMATOCRIT 43.9 % (36.0-47.0); HEMOGLOBIN 13.8 g/dl (12.0-15.5); LYMPH % 11.1 % (24.0-44.0); MEAN CORPUSCULAR HGB CONC 31.4 g/dl (32.0-36.5); MEAN CORPUSCULAR VOLUME 95.4 fl (80.0-96.0); MONO # 0.4 10^3/uL (0.0-0.8); MONO % 4.3 % (0.0-5.0); NEUTROPHILS # 7.6 10^3/uL (1.5-8.5); NEUTROPHILS % 83.7 % (36.0-66.0); PLATELET COUNT, AUTOMATED 144 10^3/uL (150-450); WHITE BLOOD COUNT 9.1 10^3/uL (4.0-10.0)
[2019-10-08 17:43] LABS: MONO SCRN NEGATIVE (NEGATIVE)
[2019-10-08] MEDS ORDERED: SUCR1SS PO (17:44)
[2019-10-08] MEDS ORDERED: NYST50SS PO (17:45)
--- NOTE | 2019-10-08 17:52 | REPVR ---
PROCEDURE INFORMATION: Exam: CT Neck With Contrast Exam date and time: 10/08/2019 5:36 PM Age: 84 years old Clinical indication: Painful swallowing; Additional info: Throat pain/difficulty swallowing TECHNIQUE: Imaging protocol: Computed tomography images of the neck with intravenous contrast. Radiation optimization: All CT scans at this facility use at least one of these dose optimization techniques: automated exposure control; mA and/or kV adjustment per patient size (includes targeted exams where dose is matched to clinical indication); or iterative reconstruction. Contrast material: ISOVUE 370; Contrast volume: 75 ml; Contrast route: INTRAVENOUS (IV); COMPARISON: CR Soft Tissue Neck 10/08/2019 4:10 PM FINDINGS: Nasopharynx: Unremarkable. Oropharynx: Unremarkable. No significant tonsillar enlargement. Hypopharynx: Unremarkable. Larynx: Unremarkable. Normal epiglottis. Retropharyngeal space: Unremarkable. Submandibular/Parotid glands: Normal. Glands are normal in size. Thyroid: Normal. No enlarged or calcified nodules. Lymph nodes: Unremarkable. No lymphadenopathy. Trachea: Visualized trachea is unremarkable. Lungs: Unremarkable as visualized. Esophagus: Dilated visualized thoracic esophagus with retained secretions. Bones/joints: The spine demonstrates moderate degenerative changes. Vasculature: The aorta demonstrates moderate atherosclerotic calcification. Soft tissues: Unremarkable. No significant soft tissue swelling. IMPRESSION: Dilated visualized thoracic esophagus with retained secretions. Electronically signed by: Ra Rodriguez On 10/08/2019 17:52:38 PM
--- NOTE | 2019-10-08 18:26 | REPVR ---
PROCEDURE INFORMATION: Exam: CT Abdomen And Pelvis Without Contrast Exam date and time: 10/08/2019 5:56 PM Age: 84 years old Clinical indication: Other: Difficulty swallowing/dilated esophagus; Additional info: Difficulty swallowing on CT chest dilated esophagus TECHNIQUE: Imaging protocol: Computed tomography of the abdomen and pelvis without contrast. Radiation optimization: All CT scans at this facility use at least one of these dose optimization techniques: automated exposure control; mA and/or kV adjustment per patient size (includes targeted exams where dose is matched to clinical indication); or iterative reconstruction. COMPARISON: CT ABD PELVIS WITH CONTRAST 06/28/2018 10:21 AM FINDINGS: Lungs: Bibasilar parenchymal atelectasis/scarring. Mediastinal space: Dilated thoracic esophagus with retained secretions. Liver: Examination of the liver demonstrates a lobular surface contour, and enlargement of the left and caudate lobes, findings consistent with cirrhosis. Gallbladder and bile ducts: There has been a cholecystectomy. Pancreas: Normal. No ductal dilation. Spleen: There is moderate splenomegaly with a maximum span of 15 centimeters. No focal abnormalities demonstrated. Adrenals: There is bilateral adrenal hyperplasia. Kidneys and ureters: Normal. No hydronephrosis. Stomach and bowel: Left inguinal hernia contains a loop of small bowel. Clinical correlation to exclude incarceration suggested. Appendix: No evidence of appendicitis. Intraperitoneal space: Unremarkable. No free air. No significant fluid collection. Vasculature: The aorta demonstrates moderate atherosclerotic calcification. Ectatic abdominal aorta without evidence of an aneurysm. Lymph nodes: Unremarkable. No enlarged lymph nodes. Bladder: Unremarkable as visualized. Reproductive: There has been a hysterectomy. Bones/joints: Osteoporosis. Compression deformities in the lower lumbar spine, stable in comparison to the prior study of 201819. Grade 2 anterolisthesis of L5 on S1. Mild central spinal stenosis at L1-L2 and L2-L3 with a smart to severe central spinal stenosis at L3-L4 and L4-L5. Soft tissues: There is a small umbilical hernia. There is no evidence of incarceration. Other findings: Presacral lobular soft tissue mass in the posterior pelvis measures 6.6 x 5.9 x 6.9 cm. Levoscoliosis. IMPRESSION: 1. Examination of the liver demonstrates a lobular surface contour, and enlargement of the left and caudate lobes, findings consistent with cirrhosis. 2. There is moderate splenomegaly with a maximum span of 15 centimeters. No focal abnormalities demonstrated. 3. Dilated thoracic esophagus with retained secretions. 4. There has been a cholecystectomy. 5. There is bilateral adrenal hyperplasia. 6. There has been a hysterectomy. 7. Presacral lobular soft tissue mass in the posterior pelvis measures 6.6 x 5.9 x 6.9 cm. 8. Left inguinal hernia contains a loop of small bowel. Clinical correlation to exclude incarceration suggested. Electronically signed by: Ra Rodriguez On 10/08/2019 18:26:19 PM
[2019-10-08 19:02] VITALS: BP 94/58
== END 2019-10-08 19:04 | disposition home or self-care (01) ==
LOC: M ED 14:42
DX: R13.19 Other dysphagia (principal); K40.90 Unilateral inguinal hernia, without obstruction or gangrene, not specified as recurrent; R16.1 Splenomegaly, not elsewhere classified; I11.9 Hypertensive heart disease without heart failure; E27.8 Other specified disorders of adrenal gland; E78.5 Hyperlipidemia, unspecified; N18.9 Chronic kidney disease, unspecified; Z79.01 Long term (current) use of anticoagulants; Z79.51 Long term (current) use of inhaled steroids; Z79.82 Long term (current) use of aspirin; Z79.899 Other long term (current) drug therapy; Z88.6 Allergy status to analgesic agent; Z88.8 Allergy status to other drugs, medicaments and biological substances
CPT/HCPCS: 70360; 70491; 74176; 80047; 85025; 86308; 87486; 87581; 87633; 87798; 87880; 93005; 96360; 96361; 99283; G0463; Q9967

== ENCOUNTER → 2019-10-08 | Outpatient (REF) | payer MEDICARE ==
[~2019-10-08] MED LIST changes: -ACET650T61 PO; -GABA-282; -GABA-282 PO; +GABA-843; +GABA-843 PO; +TYLE650T35 PO
== END ==
LOC: M SFHCLERA 13:42
PROVIDERS: ATTEND Nurse Practitioner Family
DX: J02.9 Acute pharyngitis, unspecified (principal)

== ENCOUNTER → 2019-10-12 | Outpatient (CLI) | payer MEDICARE ==
[~2019-10-12] MED LIST changes: +ACET650T61 PO; +E-Z-GAS II EFFERVESCENT PACKET (SODIUM BICARB./CITRIC ACID/SIMETHICONE) As Ordered ONE; +E-Z-HD 98% w/w 340GM SUSP BTL As Ordered ONE; +E-Z-PAQUE 96% w/w SUSP 176GM BTL As Ordered ONE; +NYST50SS PO; +PRED20TA; +SUCR1SS PO; -TYLE650T35 PO
--- NOTE | 2019-10-15 23:47 | REP ---
Examination Requested: Upper G.I. Series With KUB Reason For Exam: Dysphasia Upper GI Air Contrast The procedure was performed by DWAIN Campbell, under the direct supervision of Dr. Reid. The images were reviewed with Dr. Reid. The iron miner film shows no organomegaly or pathological masses. The intestinal gas pattern appears normal. There are surgical shayy in the right upper quadrant. Liquid barium and gas producing crystals were given in the erect position in order to perform a double contrast upper GI examination. The oral and pharyngeal stages of deglutition demonstrated a delay in swallowing as well as laryngeal penetration. There is hyperplasia of the cricopharyngeal muscle. Esophageal transport is efficient and there is no esophagitis, stricture, or mucosal ring noted. However, there is a delayed and distal esophageal emptying into the stomach. Due the delayed esophageal emptying into the stomach, the prone oblique position was not attempted during this exam for fear of aspiration. No hiatal hernia was visualized. Gastroesophageal reflux was visualized during the exam. The stomach guo are normally outlined. The rugal folds are smooth and regular. There is no gastritis, neoplasm, ulcer disease noted. The duodenal guo are normally outlined. The mucosal folds are smooth and regular. There is no duodenitis, peptic ulcer disease, or neoplasm noted. The visualized portion of the proximal small bowel appears normal in course and caliber. Impression: 1. Delay in swallowing. 2. Laryngeal penetration. 3. Hyperplasia of the cricopharyngeal muscle. 4. Delayed esophageal emptying into the stomach. 5. Gastroesophageal reflux. 1.2 minutes of fluoroscopy time was utilized for this procedure. Some fluoroscopic images are performed with last image hold technology. These images require no additional radiation. Reviewed by DWAIN Singh 10/13/2019 03:31 P Electronically Signed by Oscar Reid MD 10/15/2019 11:39 P
== END ==
LOC: M RAD 09:23
PROVIDERS: ATTEND Emergency Medicine
DX: J39.2 Other diseases of pharynx (principal); K21.9 Gastro-esophageal reflux disease without esophagitis

== ENCOUNTER → 2020-05-31 | Outpatient (CLI) | payer MEDICARE ==
[~2020-05-31] MED LIST changes: -E-Z-GAS II EFFERVESCENT PACKET (SODIUM BICARB./CITRIC ACID/SIMETHICONE) As Ordered ONE; -E-Z-HD 98% w/w 340GM SUSP BTL As Ordered ONE; -E-Z-PAQUE 96% w/w SUSP 176GM BTL As Ordered ONE; +GABA-282; +GABA-282 PO; -GABA-843; -GABA-843 PO
[2020-05-31 17:58] LABS: HEMATOCRIT 36.6 % (36.0-47.0); HEMOGLOBIN 11.5 g/dl (12.0-15.5); MEAN CORPUSCULAR HEMOGLOBIN 29.5 pg (27.0-33.0); MEAN CORPUSCULAR HGB CONC 31.4 g/dl (32.0-36.5); MEAN CORPUSCULAR VOLUME 93.8 fl (80.0-96.0); PLATELET COUNT, AUTOMATED 261 10^3/uL (150-450); WHITE BLOOD COUNT 7.9 10^3/uL (4.0-10.0)
[2020-05-31 18:22] LABS: CALCIUM LEVEL 8.4 MG/DL (8.8-10.2); CREATININE FOR GFR 1.55 MG/DL (0.55-1.30); GLOMERULAR FILTRATION RATE 33.8 (>32); POTASSIUM SERUM 4.5 MEQ/L (3.5-5.1)
== END ==
LOC: M PLALAB 14:19
PROVIDERS: ATTEND Physician Assistant
DX: I48.91 Unspecified atrial fibrillation (principal)

== ENCOUNTER 2020-07-01 16:17 | Inpatient (IN) | payer MEDICARE ==
[~2020-07-01] VITALS: Ht 154.9 cm; Wt 58.1 kg
[~2020-07-01 16:17] MED LIST changes: +ASPI-569 PO; -ASPI81TAEC PO
[2020-07-01] MEDS ORDERED: DEXTROSE 50% 50 ML VIAL As Ordered ONE (16:33)
[2020-07-01] MEDS ORDERED: DEXTROSE 50% 50 ML SYRINGE As Ordered ONE (16:34)
[2020-07-01] MEDS ORDERED: NS 1,000 ML IV SCH (16:53)
--- NOTE | 2020-07-01 16:58 | REP ---
INDICATION: fall on blood thinners. COMPARISON: Comparison is made with prior CT study June 28, 2018.. TECHNIQUE: Helical scanning is acquired. 5 mm axial images were reformatted. Coronal MPR images were generated. FINDINGS: Bone window settings demonstrate an intact bony calvarium. There is no evidence of skull fracture or incidental bony calvarial lesion. The visualized paranasal sinuses appear clear. No intraorbital abnormality is seen. On soft tissue window setting images; the lateral, third, and fourth ventricles are normal in size and position. Reid-white differentiation pattern is normal above and below the tentorium. There are is no evidence of intracranial hemorrhage. No mass, edema, infarction, or midline shift is seen. No extra-axial fluid collection is appreciated. Vascular calcification, moderate generalized volume loss and mild small vessel changes are again noted unchanged. There is a small left parietal scalp hematoma. IMPRESSION: Small left parietal scalp hematoma. Generalized volume loss. Small vessel changes and vascular calcification. No acute intracranial abnormality.. <Electronically signed by Michael Harry > 07/01/20 [id number]
[2020-07-01] MEDS ORDERED: DEXTROSE 50% 50 ML SYRINGE IV STA (16:59)
--- NOTE | 2020-07-01 17:02 | REP ---
INDICATION: fall on blood thinners. COMPARISON: Comparison CT study October 08, 2019.. TECHNIQUE: Helical scanning is acquired and overlapping 2 mm high resolution axial images were generated and reviewed at bone and soft tissue window settings. Coronal and sagittal multiplanar re-formations images are generated. FINDINGS: There is no evidence of cervical spine element fracture. No skull base fracture is seen. Cervical vertebral body heights are preserved. Alignment is normal. Facet joints are normally aligned bilaterally at each cervical level on multiplanar re-formations images. There is no evidence of intraspinal or paraspinal hematoma. No extra vertebral abnormality is seen. There is moderate degenerative disc disease to some degree at each cervical level. There is minimal 2-3 mm anterolisthesis of C2 on C3 and C3 on C4 as well as C4 on C5. These are all unchanged from the October 08, 2019 study. Most advanced degenerative disc disease with vacuum phenomena is noted at C5-6 and C6-7. There is facet joint osteoarthritis in the midcervical spine bilaterally. Fairly heavy vascular calcification is noted. The cervical and upper thoracic esophagus is air and ingested material filled. This finding is unchanged from the October 08, 2019 study. Question reflux. IMPRESSION: Degenerative disc and osteoarthritic facet disease with changes stable from October 08, 2019. No traumatic abnormality noted. Air and ingested material distends the cervical and upper thoracic esophagus unchanged from October 08, 2019. Reflux disease versus gastroesophageal obstruction lesion.. <Electronically signed by Michael Harry > 07/01/20 [id number]
--- NOTE | 2020-07-01 17:12 | REP ---
INDICATION: Altered Mental Status. COMPARISON: Comparison chest x-ray June 28, 2018. TECHNIQUE: Portable upright AP chest radiograph. FINDINGS: Moderate cardiac enlargement is again noted unchanged. Vascular cephalization is observed. There is slight blunting of the right lateral pleural angle. There is linear opacity at the left base overlying the left heart border. I cannot exclude a small left effusion. No pulmonary edema is seen. Vascular calcification and diffuse osteopenia are evident.. IMPRESSION: Moderate cardiac enlargement. Vascular cephalization and effusions consistent with CHF pattern.. <Electronically signed by Michael Harry > 07/01/20 [id number]
[2020-07-01 18:22] LABS: RSV AMPLIFICATION NEGATIVE (NEGATIVE)
[2020-07-01 18:52] LABS: BASO % 0.2 % (0.0-1.0); HEMATOCRIT 36.5 % (36.0-47.0); HEMOGLOBIN 11.3 g/dl (12.0-15.5); LYMPH # 1.3 10^3/uL (1.5-5.0); LYMPH % 13.3 % (24.0-44.0); MEAN CORPUSCULAR HEMOGLOBIN 28.8 pg (27.0-33.0); MEAN CORPUSCULAR VOLUME 92.9 fl (80.0-96.0); MONO # 0.4 10^3/uL (0.0-0.8); MONO % 4.5 % (2.0-8.0); NEUTROPHILS % 81.3 % (36.0-66.0); PLATELET COUNT, AUTOMATED 226 10^3/uL (150-450); RED BLOOD COUNT 3.93 10^6/uL (4.00-5.40); WHITE BLOOD COUNT 9.9 10^3/uL (4.0-10.0)
[2020-07-01 19:05] LABS: ACETAMINOPHEN LEVEL 3.3 UG/ML (10.0-30.0); ALBUMIN 3.1 GM/DL (3.2-5.2); ALT/SGPT 15 U/L (12-78); BILIRUBIN,DIRECT 0.3 MG/DL (0.0-0.2); BILIRUBIN,TOTAL 0.7 MG/DL (0.2-1.0); BLOOD UREA NITROGEN 25 MG/DL (7-18); CALCIUM LEVEL 7.8 MG/DL (8.8-10.2); CARBON DIOXIDE LEVEL 24 MEQ/L (21-32); CHLORIDE LEVEL 103 MEQ/L (98-107); CK-MB VALUE MASS 2.8 NG/ML (<3.6); CPK CREATINE PHOSPHOKINASE 49 U/L (26-192); CREATININE FOR GFR 1.37 MG/DL (0.55-1.30); ETHYL ALCOHOL (ETHANOL) < 0.003 % (0.000-0.010); GLUCOSE, FASTING 161 MG/DL (70-100); MB/CK RELATIVE INDEX 5.71 (< OR =4); POTASSIUM SERUM 3.7 MEQ/L (3.5-5.1); SALICYLATE LEVEL < 1.7 MG/DL (5.0-30.0); SODIUM LEVEL 136 MEQ/L (136-145); TOTAL PROTEIN 5.4 GM/DL (6.4-8.2); TROPONIN I 0.03 NG/ML (< 0.10)
--- NOTE | 2020-07-01 20:09 | ECGEPIP ---
[facility] - ED Test Date: 2020-07-01 Pat Name: EMIR GUO Department: Room: - Gender: Female Layout Former: JCARLOS : 1935 Requested By: GERRY MONTENEGRO Order Number: [id number] Reading MD: Viridiana De La Fuente Measurements Intervals [place] Rate: 74 P: PA: QRS: 96 QRSD: 80 T: 17 QT: 396 QTc: 439 Interpretive Statements Atrial fibrillation Rightward axis Low voltage QRS Cannot rule out Anterior infarct , age undetermined decreased rate 06/28/18 Electronically Signed on 07-01-2020 20:08:57 EDT by Viridiana De La Fuente
[2020-07-01] MEDS ORDERED: ACETAMINOPHEN TAB 650MG DOSE (2X325MG) PO ONE (21:00)
[2020-07-01] MEDS ORDERED: MOM 30ML SUSPENSION UDC PO PRN (21:50)
[2020-07-01] MEDS ORDERED: AZEL0.1S (21:53)
[2020-07-01] MEDS ORDERED: PROAAER10 INH (21:53)
[2020-07-01] MEDS ORDERED: TOPR25TA PO (21:53)
[2020-07-01] MEDS ORDERED: ASPE16CR TOP (21:53)
--- NOTE | 2020-07-01 21:59 | HPEPDOC ---
[facility] Medical History & Physical Date of Admission Jul 02, 2020 Date of Service: Jul 02, 2020 Primary Care Physician: GALA GARNETT PA-C Attending Physician: VARUN GLASER MD History and Physical TIME OF SERVICE: 1115PM CHIEF COMPLAINT: fall HISTORY OF PRESENT ILLNESS: This 85 yr old F came to the ER yesterday after tripping and falling backwards while taking a few steps back. She landed on her bottom, hit her shoulders and her head. She added that she didnt have her cane with her at the time. REVIEW OF SYSTEMS: 12-point review of systems negative except as listed in HPI PAST MEDICAL/ SURGICAL HISTORY: Chronic CAD/SC LCx and RCA stents / DLP Mesenteric ischemia s/p mesenteric angioplasty of the SMA Carotid artery disease (50-70% stenosis) Chronic HTN Non-O2 dependent COPD GERD Gout OA Raynauds Depression / Anxiety Severe TVR w mod-severe Pulm HTN Longstanding persistent Afib. Hx of pericardial effusion requiring pericardial window Cholecystectomy C section Lithotripsy SOCIAL HISTORY: Former smoker (2 PPD for 50 yrs quit May 2006). She is a a nd a mother of 4 children FAMILY HISTORY: Mother CAD/SC, Father CHF & Afib ALLERGIES: Please see below. HOME MEDICATIONS: Please see below. PHYSICAL EXAMINATION: Vital Signs Date Time Temp Pulse Resp B/P (MAP) Pulse Ox O2 Delivery O2 Flow Rate FiO2 07/01/20 17:01 106/63 (77) 07/01/20 17:02 81 87 07/01/20 17:04 98.3 14 Room Air 07/02/20 05:40 2.0 GENERAL APPEARANCE: well nourished and developed / NAD HEENT: EOMI CARDIOVASCULAR: RRR/NMRG / no LE edema LUNGS: CTAB on RA ABDOMEN: soft & NT w palpation MUSCULOSKELETAL: L scalp swelling (hematoma) INTEGUMENT: L shoulder and L arm abrasions NEUROLOGICAL: CN 2-12 grossly intact /speech not dysarthric PSYCHIATRIC: A&O x 3 / able to understand and follow all commands LABORATORY DATA: 07/01/20 17:04 Immature Granulocyte % (Auto) 0.7, Neutrophils (%) (Auto) 81.3H, Lymphocytes (%) (Auto) 13.3L, Monocytes (%) (Auto) 4.5, Eosinophils (%) (Auto) 0.0, Basophils (%) (Auto) 0.2, Neutrophils # (Auto) 8.0, Lymphocytes # (Auto) 1.3L, Monocytes # (Auto) 0.4, Eosinophils # (Auto) 0.0, Basophils # (Auto) 0.0, Nucleated Red Blood Cells % (auto) 0.0, Anion Gap 9, Glomerular Filtration Rate 39.0, Lactic Acid Level 2.0, Calcium Level 7.8L, Total Bilirubin 0.7, Direct Bilirubin 0.3H, Aspartate Amino Transf (AST/SGOT) 10, Alanine Aminotransferase (ALT/SGPT) 15, Alkaline Phosphatase 135H, Total Creatine Kinase 49, Creatine Kinase MB 2.8, Creatine Kinase MB Relative Index 5.71H, Troponin I 0.03, Total Protein 5.4L, Albumin 3.1L, Albumin/Globulin Ratio 1.3, Thyroid Stimulating Hormone (TSH) 7.440H, Salicylates Level < 1.7L, Acetaminophen Level 3.3L, Ethyl Alcohol Level < 0.003, 07/01/20 17:07: Bedside Glucose (Misc Panel) 151H POC Glucose (Misc Panel) 172H, POC Sodium (Misc Panel) 132L, POC Potassium (Misc Panel) 4.1, POC Chloride (Misc Panel) 101, POC Total CO2 (Misc Panel) 25.0, POC Blood Urea Nitrogen (Misc Panel 28H, POC Ionized Calcium (Misc Panel) 3.5*L, POC Creatinine (Misc Panel) 1.5H, POC Hematocrit (Misc Panel) 37.0L IMAGING: CT head IMPRESSION: Small left parietal scalp hematoma. Generalized volume loss. Small vessel changes and vascular calcification. No acute intracranial abnormality. CT cervical spine IMPRESSION: Degenerative disc and osteoarthritic facet disease with changes stable from October 08, 2019. No traumatic abnormality noted. Air and ingested material distends the cervical and upper thoracic esophagus unchanged from October 08, 2019. Reflux disease versus gastroesophageal obstruction lesion.. Chest xray IMPRESSION: Moderate cardiac enlargement. Vascular cephalization and effusions consistent with CHF pattern. EKG showed afib w rate of 74 MICROBIOLOGY: Coronavirus (COVID-19)(PCR) NEGATIVE, Influenza Type A (RT-PCR) NEGATIVE, Influenza Type B (RT-PCR) NEGATIVE, Respiratory Syncytial Virus (PCR) NEGATIVE ASSESSMENT: is an 85 yr old w a hx of CAD w stents, mesenteric ischemia w SMA angioplasty, HTN, COPD, Gout, OA, Raynauds, Depression / Anxiety, Severe Pulm HTN, & Afib who presented for evaluation after having mechanical fall backwards; she will be admitted for evaluation of weakness and to monitor her mental status after the fall. PLAN 1 Weakness / Mechanical Fall Likely due to weakness/ deconditioning and not using cane Plan: Admit to medical floor / frequent neuro checks (bc of her age she is at risk for a slow bleed involving the bridging veins) /fall precautions/ telemetry to monitor for rapid or slow afib / day time team may consult physical therapy consult to determine if she needs inpatient rehabilitation versus home PT 2 Hypoglycemia Per d/w [place] reading at 16:32 was inaccurate as the pt was not symptomatic, but per MAR review the patient received Dextrose She is not diabetic Plan: f/u FSBS Q6h / if this reoccurs will need to check blood cultures, lactic acid, plasma insulin, c-peptide, proinsulin, b-hydroxybutyrate 3 Scalp hematoma / N anemia Stable Plan: f/u Hg bc she is on a DOAC 4 CKD 3 Stable Plan: monitor renal function 5 Elevated TSH The upper limit of the normal range in the elderly who are over 80 yrs of age and without thyroid dysfunction is as high as 8.0 Plan: 6 Chronic Severe TVR w mod-severe Pulm HTN Despite the elevated BNP and cardiomegaly she is not c/o dyspnea Echo Jan 2018 IMPRESSION: 1. Normal global left ventricular systolic function. 2. Aortic valve sclerosis with mild aortic regurgitation and probably mild aortic stenosis. 3. Mitral annulus calcification with markedly dilated left atrium and moderate mitral regurgitation. 4. Severe tricuspid regurgitation with probably moderate to severe pulmonary hypertension and dilated right atrium. 5. The inferior vena cava is dilated, central venous pressure is most likely elevated. 6. Small pericardial effusion noted, no evidence of cardiac tamponade. Plan: Torsemide 7 Chronic Non-O2 dependent COPD Plan: Albuterol & Ipatropium 8 Chronic CAD/SC LCx and RCA stents / DLP / Carotid artery disease Plan: Atorvastatin Metoprolol 9 Chronic HTN Plan: Metoprolol, Spironolactone 11 Gout Plan: Febuxostat 12 Longstanding persistent Afib. Plan: Apixaban 13 Depression / Anxiety Plan: Sertraline DVT n/a on DOAC Dispo: home after at least 2 midnights stay Home Medications Scheduled Apixaban (Eliquis) 2.5 Mg Tab, 2.5 MG PO BID Atorvastatin Calcium (Lipitor) 20 Mg Tab, 20 MG PO QHS Febuxostat (Uloric) 40 Mg Tab, 40 MG PO DAILY Gabapentin (Gabapentin) 300 Mg Cap, 300 MG PO QHS Metoprolol Succinate (Toprol Xl) 25 Mg Tab.er.24h, 25 MG PO DAILY Omeprazole (Omeprazole) 40 Mg Cap, 40 MG PO DAILY Sertraline Hcl (Sertraline HCl) 50 Mg Tab, 50 MG PO DAILY Spironolactone (Spironolactone) 25 Mg Tab, 50 MG PO DAILY Torsemide (Torsemide) 100 Mg Tab, 50 MG PO DAILY Umeclidinium Aynor (Incruse Ellipta) 62.5 Mcg/Inh Inh, 1 PUFF INH DAILY Scheduled PRN Acetaminophen (Tylenol Arthritis) 650 Mg Tab, 650 MG PO Q8H PRN for PAIN Albuterol Sulf (Albuterol Sulfate) 2.5 Mg/3 Ml Nebu, 2.5 MG INH Q4H PRN for SHORTNESS OF BREATH Albuterol Sulfate (Proair Hfa) 8.5 Gm Hfa.aer.ad, 2 PUFF INH Q4H PRN for SHORTNESS OF BREATH Azelastine HCl (Azelastine HCl) 0.1% Mchenry.pump, 2 SPRAY NA DAILY PRN for NASAL CONGESTION Lidocaine HCl (Aspercreme) 4% Cream..g., 1 DOSE TOP TID PRN for PAIN Polyvinyl Alcohol (Artificial Tears) 1.4 % Radha, 1 DROP OU QID PRN for DRY EYES Allergies Coded Allergies: guaifenesin (Verified Allergy, Unknown, 06/29/18) codeine (Verified Adverse Reaction, Intermediate, HALLUCINATIONS, 06/29/18) meperidine (Verified Adverse Reaction, Intermediate, HALLUCINATIONS, 06/29/18) cyclobenzaprine (Verified Adverse Reaction, Mild, ALL MUSCLE RELAXANTS "KNOCK ME OUT", 06/29/18) A-FIB/CHADSVASC A-FIB History Current/History of A-Fib/PAF?: No Current PO Anticoag Therapy: No VARUN GLASER MD Jul 01, 2020 21:59
[2020-07-01 23:47] VITALS: BP 100/49
[2020-07-02] MEDS ORDERED: POLYVINYL ALCOHOL OPHTH SOLN 15 ML(LIQUITEARS) OU PRN (00:40)
[2020-07-02 00:59] LABS: CALCIUM LEVEL 8.2 MG/DL (8.8-10.2); CREATININE FOR GFR 1.51 MG/DL (0.55-1.30); GLOMERULAR FILTRATION RATE 34.9 (>32); POTASSIUM SERUM 3.8 MEQ/L (3.5-5.1)
[2020-07-02] MEDS: GABAPENTIN 300 MG CAP PO SCH ×2 (01:40→20:57)
[2020-07-02] MEDS: ATORVASTATIN 20 MG TAB PO SCH ×2 (01:40→20:57)
[2020-07-02] MEDS: APIXABAN 2.5 MG TAB (ELIQUIS) PO SCH ×3 (01:40→20:57)
[2020-07-02 06:00] VITALS: BP 102/56
[2020-07-02] MEDS: IPRATROPIUM HFA INHALER 12.9 GRAMS (ATROVENT HFA) INH SCH ×2 (07:42→19:50)
[2020-07-02 07:45] LABS: HEMATOCRIT 34.1 % (36.0-47.0); HEMOGLOBIN 10.7 g/dl (12.0-15.5); MEAN CORPUSCULAR HEMOGLOBIN 28.9 pg (27.0-33.0); MEAN CORPUSCULAR HGB CONC 31.4 g/dl (32.0-36.5); MEAN CORPUSCULAR VOLUME 92.2 fl (80.0-96.0); PLATELET COUNT, AUTOMATED 193 10^3/uL (150-450); WHITE BLOOD COUNT 8.5 10^3/uL (4.0-10.0)
[2020-07-02 08:05] LABS: CALCIUM LEVEL 7.7 MG/DL (8.8-10.2); CREATININE FOR GFR 1.58 MG/DL (0.55-1.30); GLOMERULAR FILTRATION RATE 33.1 (>32); POTASSIUM SERUM 3.5 MEQ/L (3.5-5.1)
[2020-07-02] MEDS ORDERED: TORSEMIDE 100 MG TAB PO SCH (09:00)
[2020-07-02] MEDS: FEBUXOSTAT 40 MG TABLET (ULORIC) PO SCH (09:01)
[2020-07-02] MEDS: SERTRALINE HCL 50 MG TAB PO SCH (09:01)
[2020-07-02] MEDS: SPIRONOLACTONE 25 MG TAB PO SCH (09:01)
[2020-07-02] MEDS: OMEPRAZOLE 20 MG CAP PO SCH (09:01)
[2020-07-02] MEDS: METOPROLOL SUCC *XL* 25MG TAB (TopROL *XL*) PO SCH (09:06)
[2020-07-02] MEDS: ACETAMINOPHEN TAB 650MG DOSE (2X325MG) PO PRN ×2 (09:11→16:52)
[2020-07-02 10:06] LABS: CK-MB VALUE MASS 1.8 NG/ML (<3.6); MB/CK RELATIVE INDEX 5.29 (< OR =4); TROPONIN I 0.03 NG/ML (< 0.10)
--- NOTE | 2020-07-02 13:28 | IPNPDOC ---
Date Seen The patient was seen on 07/02/20. Progress Note SUBJECTIVE: Patient was seen and examined this morning. She states that she has back pain as well as some chest pain. She is unable to elaborate on her chest pain and states that it hurts. She denies shortness of breath. She states the pain has been constant since yesterday after she fell. She denies any other complaints OBJECTIVE PHYSICAL EXAMINATION: VITAL SIGNS: Please see below. GENERAL: Awake, alert,and oriented. Appears in no acute distress. Lying comfortably in bed HEENT: Atraumatic, normocephalic. Eyes are nonicteric. Trachea is midline. Mucous membranes are pink and moist CARDIOVASCULAR: Normal S1, S2. Regular rate and rhythm. No clicks, rubs, or murmurs. RESPIRATORY: Clear breath sounds bilaterally. Diminished throughout with fine crackles in the bases. No wheezes or rhonchi ABDOMINAL: Soft, nondistended. Nontender. Normoactive bowel sounds. EXTREMITIES: No edema. Full and equal pulses in bilateral upper and lower extremities NEUROLOGICAL: No focal neurological deficits PSYCHOLOGICAL: Mood and affect appear appropriate LABORATORY DATA, IMAGING STUDIES, MICROBIOLOGY: Please see below. Echocardiogram: Obtaining most recent echocardiogram from her Soft Sugar Operator Head DVT prophylaxis ordered?: Gilberto ASSESSMENT AND PLAN: Patient is a 85 year old female with a past medical history significant for pericardial effusion with pericardial window, atrial fibrillat ion, CAD, severe tricuspid regurgitation, and hypertension who presented to [facility] after a mechanical fall at home PROBLEMS: 1. Fall at home 2/2 mechanical unlikely syncope -Patient stated that she had the urge to use the bathroom at home. She got up in a hurry and ended up losing her balance and falling backwards onto her bottom. She stated that she then fell further back and hit her head. She denied any lose of consciousness. -Patient reports 3 falls at home total -Potential option for assisted living or half-way was discussed with patient. She has stated that this is not something that she would want. She states she has people to care for her at home. -Last echocardiogram was completed in 2018. She does follow with Dr. Grayson. Will try and obtain most recent echocardiogram. Unlikely syncope however if patient has not received an echocardiogram since 2018 then will order -Physical therapy ordered . 2. Scalp Hematoma -Secondary to fall. Hgb stable. 3. CKD stage 3 -Cr stable and at baseline. 5. 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 -Patient is continued on her home medications. She is followed by cardiology outpatient -Will request her most recent outpatient echocardiogram 6. COPD -Stable. Will continue home medications 7. CAD s/p LCx and RCA stent -On atorvastatin and metoprolol, and spironolactone 8. HTN -Continue metoprolol and spironolactone 9. Gout -Continue febuxostat 10. Chronic Atrial Fibrillation -Patient is on dose adjusted Eliquis. Will continue 11. Depression/Anxiety -Continue Sertraline 12. DVT Prophylaxis -Continue Eliquis DISPOSITION: Likely discharge in 24-48 hours pending PT eval and treatment Attending Attestation: Patient independently seen and examined. I have discussed in detail with the resident / student the findings and plan of treatment as documented by the resident / student. I agree with their findings and treatment plan and have edited their documentation. I will continue to follow the patient during this hospital stay. Continue telemetry monitoring, considering echocardiogram. To follow up with outpatient waiter/waitress bar if echocardiogram recently obtained. VS, I&O, 24H, [facility] Vital Signs/I&O Vital Signs Date Time Temp Pulse Resp B/P (MAP) Pulse Ox O2 Delivery O2 Flow Rate FiO2 07/02/20 09:06 87 89/48 07/02/20 09:00 2.0 07/02/20 06:00 97.4 17 98 Room Air I&O- Last 24 Hours up to 6 AM 07/02/20 06:00 Intake Total 255 ml Balance 255 ml Laboratory Data 24H LABS Laboratory Tests 2 07/01/20 16:32: Bedside Glucose (Misc Panel) 19*L 07/01/20 17:04: Immature Granulocyte % (Auto) 0.7, Neutrophils (%) (Auto) 81.3H, Lymphocytes (%) (Auto) 13.3L, Monocytes (%) (Auto) 4.5, Eosinophils (%) (Auto) 0.0, Basophils (%) (Auto) 0.2, Neutrophils # (Auto) 8.0, Lymphocytes # (Auto) 1.3L, Monocytes # (Auto) 0.4, Eosinophils # (Auto) 0.0, Basophils # (Auto) 0.0, Nucleated Red Blood Cells % (auto) 0.0, Anion Gap 9, Glomerular Filtration Rate 39.0, Lactic Acid Level 2.0, Calcium Level 7.8L, Total Bilirubin 0.7, Direct Bilirubin 0.3H, Aspartate Amino Transf (AST/SGOT) 10, Alanine Aminotransferase (ALT/SGPT) 15, Alkaline Phosphatase 135H, Total Creatine Kinase 49, Creatine Kinase MB 2.8, Creatine Kinase MB Relative Index 5.71H, Troponin I 0.03, Total Protein 5.4L, Albumin 3.1L, Albumin/Globulin Ratio 1.3, Thyroid Stimulating Hormone (TSH) 7.440H, Salicylates Level < 1.7L, Acetaminophen Level 3.3L, Ethyl Alcohol Level < 0.003, Coronavirus (COVID-19)(PCR) NEGATIVE, Influenza Type A (RT-PCR) NEGATIVE, Influenza Type B (RT-PCR) NEGATIVE, Respiratory Syncytial Virus (PCR) NEGATIVE 07/01/20 17:07: Bedside Glucose (Misc Panel) 151H 07/01/20 20:04: Bedside Glucose (Misc Panel) < 10*L 07/01/20 20:05: Bedside Glucose (Misc Panel) < 10*L 07/01/20 20:17: POC Glucose (Misc Panel) 172H, POC Sodium (Misc Panel) 132L, POC Potassium (Misc Panel) 4.1, POC Chloride (Misc Panel) 101, POC Total CO2 (Misc Panel) 25.0, POC Blood Urea Nitrogen (Misc Panel 28H, POC Ionized Calcium (Misc Panel) 3.5*L, POC Creatinine (Misc Panel) 1.5H, POC Hematocrit (Misc Panel) 37.0L 07/02/20 00:13: Anion Gap 7L, Glomerular Filtration Rate 34.9, Calcium Level 8.2L, UD-Emp-B-Type Natriuretic Peptide [id number] 07/02/20 07:27: Anion Gap 8, Glomerular Filtration Rate 33.1, Calcium Level 7.7L, Nucleated Red Blood Cells % (auto) 0.0, Total Creatine Kinase 34, Creatine Kinase MB 1.8, Creatine Kinase MB Relative Index 5.29H, Troponin I 0.03 07/02/20 11:42: Lab Scanned Report Miscellaneous Lab CBC/BMP Laboratory Tests 07/01/20 17:04 3/30/21 00:13 07/02/20 07:27 GERMAN BECKHAM DO Jul 02, 2020 13:28 CRISTINA MURCIA MD Jul 03, 2020 09:24
[2020-07-02] MEDS: ALBUTEROL 90 MCG/ACT 8GM HFA INHALER INH PRN (13:41)
[2020-07-02 14:00] VITALS: BP 93/49
[2020-07-02 18:07] LABS: AMPHETAMINES LEVEL URINE NEGATIVE (NEGATIVE); BARBITURATES URINE NEGATIVE (NEGATIVE); BENZODIAZEPINES URINE NEGATIVE (NEGATIVE); CANNABINOIDS URINE NEGATIVE (NEGATIVE); COCAINE METABOLITE URINE NEGATIVE (NEGATIVE); METHADONE URINE NEGATIVE (NEGATIVE); OPIATES URINE NEGATIVE (NEGATIVE); PHENCYCLIDINE URINE NEGATIVE (NEGATIVE)
[2020-07-02 22:00] VITALS: BP 95/49
[2020-07-03] MEDS: ALBUTEROL 90 MCG/ACT 8GM HFA INHALER INH PRN ×5 (00:20→21:27)
[2020-07-03 06:00] VITALS: BP 94/50
[2020-07-03] MEDS: IPRATROPIUM HFA INHALER 12.9 GRAMS (ATROVENT HFA) INH SCH ×2 (07:30→17:43)
[2020-07-03] MEDS: APIXABAN 2.5 MG TAB (ELIQUIS) PO SCH ×2 (09:24→20:38)
[2020-07-03] MEDS: SERTRALINE HCL 50 MG TAB PO SCH (09:24)
[2020-07-03] MEDS: OMEPRAZOLE 20 MG CAP PO SCH (09:24)
[2020-07-03] MEDS: SPIRONOLACTONE 25 MG TAB PO SCH (09:24)
[2020-07-03] MEDS: FEBUXOSTAT 40 MG TABLET (ULORIC) PO SCH (09:24)
[2020-07-03] MEDS: METOPROLOL SUCC *XL* 25MG TAB (TopROL *XL*) PO SCH (09:26)
[2020-07-03] MEDS: MAALOX 30 ML SUSP *UDC PO PRN (10:56)
--- NOTE | 2020-07-03 12:08 | IPNPDOC ---
Date Seen The patient was seen on 07/03/20. Progress Note SUBJECTIVE: Patient was seen and examined this morning. There have been no adverse events reported. Patient was noted to be hypotensive yesterday during PT OBJECTIVE PHYSICAL EXAMINATION: VITAL SIGNS: Please see below. GENERAL: Awake, alert,and oriented. Appears in no acute distress. Lying comfortably in bed HEENT: Atraumatic, normocephalic. Eyes are nonicteric. Trachea is midline. Mucous membranes are pink and moist CARDIOVASCULAR: Normal S1, S2. Regular rate and rhythm. No clicks, rubs, or murmurs. RESPIRATORY: Clear breath sounds bilaterally. Diminished throughout with fine crackles in the bases. No wheezes or rhonchi ABDOMINAL: Soft, nondistended. Nontender. Normoactive bowel sounds. EXTREMITIES: No edema. Full and equal pulses in bilateral upper and lower extremities NEUROLOGICAL: No focal neurological deficits PSYCHOLOGICAL: Mood and affect appear appropriate LABORATORY DATA, IMAGING STUDIES, MICROBIOLOGY: Please see below. DVT prophylaxis ordered?: ASSESSMENT AND PLAN: DVT prophylaxis ordered?: Gilberto ASSESSMENT AND PLAN: Patient is a 85 year old female with a past medical history significant for pericardial effusion with pericardial window, atrial fibrillation, CAD, severe tricuspid regurgitation, and hypertension who presented to [facility] after a mechanical fall at home PROBLEMS: 1. Fall at home 2/2 mechanical unlikely syncope -Patient stated that she had the urge to use the bathroom at home. She got up in a hurry and ended up losing her balance and falling backwards onto her bottom. She stated that she then fell further back and hit her head. She denied any lose of consciousness. -Patient reports 3 falls at home total -PT ordered. Patient was noted to be hypotensive yesterday. Will attempt PT again today 2. Scalp Hematoma -Secondary to fall. Hgb stable. 3. CKD stage 3 -Cr stable and at baseline. 5. 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 -Patient is continued on her home medications. She is followed by cardiology outpatient -Obtaining outpatient echo. If not done recently will repeat echo 6. COPD -Stable. Will continue home medications 7. CAD s/p LCx and RCA stent -On atorvastatin and metoprolol, and spironolactone 8. HTN -Continue metoprolol and spironolactone 9. Gout -Continue febuxostat 10. Chronic Atrial Fibrillation -Patient is on dose adjusted Eliquis. Will continue 11. Depression/Anxiety -Continue Sertraline 12. DVT Prophylaxis -Continue Eliquis DISPOSITION: Pending PT eval VS, I&O, 24H, Fishbone Vital Signs/I&O Vital Signs Date Time Temp Pulse Resp B/P (MAP) Pulse Ox O2 Delivery O2 Flow Rate FiO2 07/03/20 09:26 106 95/54 07/03/20 09:00 2.0 07/03/20 07:32 14 07/03/20 06:00 98.0 95 Nasal Cannula I&O- Last 24 Hours up to 6 AM 07/03/20 06:00 Intake Total 940 ml Output Total 200 ml Balance 740 ml Laboratory Data 24H LABS Laboratory Tests 2 07/02/20 17:26: Urine Color YELLOW, Urine Appearance CLEAR, Urine pH 5.0, Urine Specific [place] 1.012, Urine Protein NEGATIVE, Urine Glucose (UA) NEGATIVE, Urine Ketones NEGATIVE, Urine Blood NEGATIVE, Urine Nitrite NEGATIVE, Urine Bilirubin NEGATIVE, Urine Urobilinogen 0.2, Urine Leukocyte Esterase 2+H, Urine WBC (Auto) 11H, Urine RBC (Auto) 2, Urine Hyaline Casts (Auto) 10, Urine Bacteria (Auto) 1+H, Urine Squamous Epithelial Cells 1, Urine Mucus (Auto) SMALL, Urine Sperm (Auto) 07/02/20 20:23: Bedside Glucose (Misc Panel) 84 07/03/20 00:02: Bedside Glucose (Misc Panel) 88 07/03/20 05:49: Bedside Glucose (Misc Panel) 74L Microbiology Microbiology 07/02/20 Urine Culture, Received Pending GME ATTESTATION GME ATTESTATION My faculty preceptor for this patient encounter was physically present during the encounter and was fully available. All aspects of the patient interview, exa mination, medical decision making process, and medical care plan development were reviewed and approved by the faculty preceptor. The faculty preceptor is aware and concurs with the plan as stated in the body of this note and will attest to such by his/her cosignature. ATTENDING NOTE Attending Attestation: Patient independently seen and examined. I have discussed in detail with the resident / student the findings and plan of treatment as documented by the resident / student. I agree with their findings and treatment plan and have edited their documentation. I will continue to follow the patient during this hospital stay. GERMAN BECKHAM DO Jul 03, 2020 12:08 CRISTINA MURCIA MD Jul 05, 2020 07:05
[2020-07-03 14:00] VITALS: BP 98/57
[2020-07-03 18:00] VITALS: BP 109/65
[2020-07-03] MEDS: ACETAMINOPHEN TAB 650MG DOSE (2X325MG) PO PRN (20:37)
[2020-07-03] MEDS: GABAPENTIN 300 MG CAP PO SCH (20:38)
[2020-07-03] MEDS: ATORVASTATIN 20 MG TAB PO SCH (20:38)
[2020-07-03 22:00] VITALS: BP 102/57
[2020-07-04 02:00] VITALS: BP 101/57
[2020-07-04] MEDS: ALBUTEROL 90 MCG/ACT 8GM HFA INHALER INH PRN ×3 (05:24→21:23)
[2020-07-04 06:00] VITALS: BP 102/52
[2020-07-04] MEDS: IPRATROPIUM HFA INHALER 12.9 GRAMS (ATROVENT HFA) INH SCH ×2 (08:08→19:39)
[2020-07-04 08:52] LABS: BASO % 0.2 % (0.0-1.0); HEMATOCRIT 38.2 % (36.0-47.0); HEMOGLOBIN 11.9 g/dl (12.0-15.5); LYMPH # 1.4 10^3/uL (1.5-5.0); LYMPH % 15.8 % (24.0-44.0); MEAN CORPUSCULAR HEMOGLOBIN 28.8 pg (27.0-33.0); MEAN CORPUSCULAR HGB CONC 31.2 g/dl (32.0-36.5); MEAN CORPUSCULAR VOLUME 92.5 fl (80.0-96.0); MONO # 0.5 10^3/uL (0.0-0.8); MONO % 5.3 % (2.0-8.0); NEUTROPHILS % 77.9 % (36.0-66.0); PLATELET COUNT, AUTOMATED 207 10^3/uL (150-450); RED BLOOD COUNT 4.13 10^6/uL (4.00-5.40)
[2020-07-04 09:17] LABS: ALBUMIN 2.9 GM/DL (3.2-5.2); BILIRUBIN,TOTAL 0.7 MG/DL (0.2-1.0); CALCIUM LEVEL 8.1 MG/DL (8.8-10.2); CREATININE FOR GFR 1.33 MG/DL (0.55-1.30); GLOMERULAR FILTRATION RATE 40.4 (>32); TOTAL PROTEIN 5.4 GM/DL (6.4-8.2)
[2020-07-04] MEDS: SERTRALINE HCL 50 MG TAB PO SCH (09:35)
[2020-07-04] MEDS: TORSEMIDE (DEMADEX) 50 MG PER 1/2 TAB PO SCH (09:35)
[2020-07-04] MEDS: FEBUXOSTAT 40 MG TABLET (ULORIC) PO SCH (09:35)
[2020-07-04] MEDS: OMEPRAZOLE 20 MG CAP PO SCH (09:36)
[2020-07-04] MEDS: APIXABAN 2.5 MG TAB (ELIQUIS) PO SCH ×2 (09:36→21:04)
[2020-07-04] MEDS: METOPROLOL SUCC *XL* 25MG TAB (TopROL *XL*) PO SCH (09:36)
[2020-07-04] MEDS: SPIRONOLACTONE 25 MG TAB PO SCH (09:36)
[2020-07-04 10:00] VITALS: BP 118/65
--- NOTE | 2020-07-04 12:49 | IPNPDOC ---
Date Seen The patient was seen on 07/04/20. Progress Note SUBJECTIVE: Patient was seen and examined this morning. There have been no adverse events reported overnight. She has been recommended for rehab. Patient stated that she is agreeable to rehab. She otherwise has no new complaints OBJECTIVE PHYSICAL EXAMINATION: VITAL SIGNS: Please see below. GENERAL: Awake, alert,and oriented. Appears in no acute distress. Lying comfortably in bed in pink robe HEENT: Atraumatic, normocephalic. Eyes are nonicteric. Trachea is midline. Mucous membranes are pink and moist CARDIOVASCULAR: Normal S1, S2. Regular rate and rhythm. No clicks, rubs, or murmurs. RESPIRATORY: Clear breath sounds bilaterally. Diminished throughout with fine crackles in the bases unchanged from previous exam. No wheezes or rhonchi ABDOMINAL: Soft, nondistended. Nontender. Normoactive bowel sounds. EXTREMITIES: No edema. Full and equal pulses in bilateral upper and lower ext remities NEUROLOGICAL: No focal neurological deficits PSYCHOLOGICAL: Mood and affect appear appropriate LABORATORY DATA, IMAGING STUDIES, MICROBIOLOGY: Please see below. Echocardiogram: Pending DVT prophylaxis ordered?: Gilberto ASSESSMENT AND PLAN: Patient is a 85 year old female with a past medical history significant for pericardial effusion with pericardial window, atrial fibrillation, CAD, severe tricuspid regurgitation, and hypertension who presented to [facility] after a mechanical fall at home. Currently working with physical therapy with likely discharge to rehab PROBLEMS: 1. Fall at home 2/2 mechanical unlikely syncope -Patient stated that she had the urge to use the bathroom at home. She got up in a hurry and ended up losing her balance and falling backwards onto her bottom. She stated that she then fell further back and hit her head. She denied any lose of consciousness. -Patient reports 3 falls at home total -Continue PT. Patient recommended to rehab. Patient is amendable to this 2. Scalp Hematoma -Secondary to fall. Hgb stable. -Patient denies any more pain on her head 3. CKD stage 3 -Cr stable and at baseline. 5. 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 -Patient is continued on her home medications. She is followed by cardiology outpatient -Have ordered a repeat echocardiogram as outpatient records are not available 6. COPD -Stable. Will continue home medications 7. CAD s/p LCx and RCA stent -On atorvastatin and metoprolol, and spironolactone 8. HTN -Continue metoprolol and spironolactone 9. Gout -Continue febuxostat 10. Chronic Atrial Fibrillation -Patient is on dose adjusted Eliquis. Will continue 11. Depression/Anxiety -Continue Sertraline 12. DVT Prophylaxis -Continue Eliquis DISPOSITION: Likely discharge in 24-48 hours to rehab VS, I&O, 24H, Fishbone Vital Signs/I&O Vital Signs Date Time Temp Pulse Resp B/P (MAP) Pulse Ox O2 Delivery O2 Flow Rate FiO2 07/04/20 10:00 97.4 97 18 118/65 (82) 92 Nasal Cannula 2.0 I&O- Last 24 Hours up to 6 AM 07/04/20 06:00 Intake Total 1020 ml Balance 1020 ml Laboratory Data 24H LABS Laboratory Tests 2 07/03/20 13:00: Bedside Glucose (Misc Panel) 117H 07/03/20 18:02: Bedside Glucose (Misc Panel) 72L 07/04/20 00:06: Bedside Glucose (Misc Panel) 95 07/04/20 06:39: Bedside Glucose (Misc Panel) 92 07/04/20 08:27: Immature Granulocyte % (Auto) 0.8, Neutrophils (%) (Auto) 77.9H, Lymphocytes (%) (Auto) 15.8L, Monocytes (%) (Auto) 5.3, Eosinophils (%) (Auto) 0.0, Basophils (%) (Auto) 0.2, Neutrophils # (Auto) 7.0, Lymphocytes # (Auto) 1.4L, Monocytes # (Auto) 0.5, Eosinophils # (Auto) 0.0, Basophils # (Auto) 0.0, Nucleated Red Blood Cells % (auto) 0.0, Anion Gap 7L, Glomerular Filtration Rate 40.4, Calcium Level 8.1L, Total Bilirubin 0.7, Aspartate Amino Transf (AST/SGOT) 11, Alanine Aminotransferase (ALT/SGPT) 9L, Alkaline Phosphatase 137H, WI-Hgt-T-Type Natriuretic Peptide 29386S, Total Protein 5.4L, Albumin 2.9L, Albumin/Globulin Ratio 1.2 07/04/20 11:39: Bedside Glucose (Misc Panel) 88 CBC/BMP Laboratory Tests 07/04/20 08:27 Microbiology Microbiology 07/02/20 Urine Culture - Final, Complete GME ATTESTATION GME ATTESTATION My faculty preceptor for this patient encounter was physically present during the encounter and was fully available. All aspects of the patient interview, examination, medical decision making process, and medical care plan development were reviewed and approved by the faculty preceptor. The faculty preceptor is aware and concurs with the plan as stated in the body of this note and will attest to such by his/her cosignature. ATTENDING NOTE Attending Attestation: Patient independently seen and examined. I have discussed in detail with the resident / student the findings and plan of treatment as documented by the resident / student. I agree with their findings and treatment plan and have edited their docume ntation. I will continue to follow the patient during this hospital stay. GERMAN BECKHAM DO Jul 04, 2020 12:49 CRISTINA MURCIA MD Jul 05, 2020 07:30
[2020-07-04 14:00] VITALS: BP 134/71
[2020-07-04 18:00] VITALS: BP 106/60
[2020-07-04] MEDS: GABAPENTIN 300 MG CAP PO SCH (21:04)
[2020-07-04] MEDS: ATORVASTATIN 20 MG TAB PO SCH (21:04)
[2020-07-04] MEDS: ACETAMINOPHEN TAB 650MG DOSE (2X325MG) PO PRN (21:07)
[2020-07-04 22:00] VITALS: BP 123/64
[2020-07-05] MEDS: ALBUTEROL 90 MCG/ACT 8GM HFA INHALER INH PRN ×4 (01:27→15:21)
[2020-07-05 02:00] VITALS: BP 105/58
[2020-07-05 06:00] VITALS: BP 101/59
[2020-07-05 07:04] LABS: HEMATOCRIT 35.3 % (36.0-47.0); HEMOGLOBIN 10.7 g/dl (12.0-15.5); MEAN CORPUSCULAR HEMOGLOBIN 28.1 pg (27.0-33.0); MEAN CORPUSCULAR HGB CONC 30.3 g/dl (32.0-36.5); MEAN CORPUSCULAR VOLUME 92.7 fl (80.0-96.0); PLATELET COUNT, AUTOMATED 193 10^3/uL (150-450); RED BLOOD COUNT 3.81 10^6/uL (4.00-5.40); WHITE BLOOD COUNT 6.7 10^3/uL (4.0-10.0)
[2020-07-05] MEDS: IPRATROPIUM HFA INHALER 12.9 GRAMS (ATROVENT HFA) INH SCH ×2 (07:14→19:36)
[2020-07-05 07:36] LABS: ALBUMIN 2.6 GM/DL (3.2-5.2); BILIRUBIN,TOTAL 0.6 MG/DL (0.2-1.0); CALCIUM LEVEL 7.7 MG/DL (8.8-10.2); CREATININE FOR GFR 1.1 MG/DL (0.55-1.30); GLOMERULAR FILTRATION RATE 50.3 (>32); POTASSIUM SERUM 4.4 MEQ/L (3.5-5.1); TOTAL PROTEIN 4.8 GM/DL (6.4-8.2)
[2020-07-05] MEDS: SERTRALINE HCL 50 MG TAB PO SCH (08:59)
[2020-07-05] MEDS: FEBUXOSTAT 40 MG TABLET (ULORIC) PO SCH (08:59)
[2020-07-05] MEDS: METOPROLOL SUCC *XL* 25MG TAB (TopROL *XL*) PO SCH (09:00)
[2020-07-05] MEDS: APIXABAN 2.5 MG TAB (ELIQUIS) PO SCH ×2 (09:06→22:12)
[2020-07-05] MEDS: SPIRONOLACTONE 25 MG TAB PO SCH (09:07)
[2020-07-05] MEDS: TORSEMIDE (DEMADEX) 50 MG PER 1/2 TAB PO SCH (09:07)
[2020-07-05] MEDS: ACETAMINOPHEN TAB 650MG DOSE (2X325MG) PO PRN ×2 (09:07→22:15)
[2020-07-05] MEDS: OMEPRAZOLE 20 MG CAP PO SCH (09:08)
--- NOTE | 2020-07-05 10:37 | IPNPDOC ---
Date Seen The patient was seen on 07/05/20. Progress Note SUBJECTIVE: Patient was seen and examined last night. She has had continued sternal pain. She has been working with physical therapy and is currently awaiting rehab. She denies any shortness of breath currently however does need supplemental oxygen at night when she is sleeping. Nursing reports some mild swelling in her right forearm. Patient denies any pain in that area. OBJECTIVE PHYSICAL EXAMINATION: VITAL SIGNS: Please see below. GENERAL: Awake, alert,and oriented. Appears in no acute distress. Lying comfortably in bed in pink robe HEENT: Atraumatic, normocephalic. Eyes are nonicteric. Trachea is midline. Mucous membranes are pink and moist CARDIOVASCULAR: Normal S1, S2. Regular rate and rhythm. No clicks, rubs, or murmurs. RESPIRATORY: Clear breath sounds bilaterally. Diminished throughout with fine crackles in the bases unchanged from previous exam. No wheezes or rhonchi ABDOMINAL: Soft, nondistended. Nontender. Normoactive bowel sounds. EXTREMITIES: No edema. Full and equal pulses in bilateral upper and lower extremities. Right forearm with some mild swelling. No discoloration. NEUROLOGICAL: No focal neurological deficits PSYCHOLOGICAL: Mood and affect appear appropriate LABORATORY DATA, IMAGING STUDIES, MICROBIOLOGY: Please see below. Echocardiogram: Pending DVT prophylaxis ordered?: Gilberto ASSESSMENT AND PLAN: Patient is a 85 year old female with a past medical history significant for pericardial effusion with pericardial window, atrial fibrillati on, CAD, severe tricuspid regurgitation, and hypertension who presented to [facility] after a mechanical fall at home. Currently working with physical therapy with likely discharge to rehab. PROBLEMS: 1. Fall at home 2/2 mechanical unlikely syncope -Patient stated that she had the urge to use the bathroom at home. She got up in a hurry and ended up losing her balance and falling backwards onto her nat ttom. She stated that she then fell further back and hit her head. She denied any lose of consciousness. -Patient reports 3 falls at home total -Patient is continued with PT. She will need rehab. Currently pending placement to rehab facility. Patient ultimately wishes to return to her previous living situation after rehab however this may be unrealistic as the patient was living by herself. 2. Chest Discomfort -Patient complaints of chest discomfort that is constant in nature. Troponins have been negative. She states she has had this pain for a long time. Likely related to her pericardial window and CHF. -Echocardiogram has been ordered with report pending 3. Scalp Hematoma -Resolved 4. CKD stage 3 -Cr stable and at baseline. 5. 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 -Patient is continued on her home medications. She is followed by cardiology outpatient -Have ordered a repeat echocardiogram as outpatient records are not available -Patient is continued on Demedex 6. Hypotension -Patient noted to be hypotensive this morning. She does have episodes of hypotension although she remains asymptomatic. Have held her Metoprolol this morning 7. COPD -Stable. Will continue home medications 9. CAD s/p LCx and RCA stent -On atorvastatin and metoprolol, and spironolactone 9. HTN -Continue spironolactone and demedex -Holding Metoprolol 10. Gout -Continue febuxostat 11. Chronic Atrial Fibrillation -Patient is on dose adjusted Eliquis. Will continue 12. Depression/Anxiety -Continue Sertraline 13. DVT Prophylaxis -Continue Eliquis DISPOSITION: Awaiting echo report and placement into rehab VS, I&O, 24H, [facility] Vital Signs/I&O Vital Signs Date Time Temp Pulse Resp B/P (MAP) Pulse Ox O2 Delivery O2 Flow Rate FiO2 07/05/20 09:00 65 84/52 07/05/20 06:00 97.6 19 100 Nasal Cannula 2.0 I&O- Last 24 Hours up to 6 AM 07/05/20 06:00 Intake Total 1200 ml Output Total 100 ml Balance 1100 ml Laboratory Data 24H LABS Laboratory Tests 2 07/04/20 11:39: Bedside Glucose (Misc Panel) 88 07/04/20 16:41: Bedside Glucose (Misc Panel) 63L 07/04/20 23:59: Bedside Glucose (Misc Panel) 91 07/05/20 06:38: Nucleated Red Blood Cells % (auto) 0.0, Anion Gap 4L, Glomerular Filtration Rate 50.3, Calcium Level 7.7L, Total Bilirubin 0.6, Aspartate Amino Transf (AST/SGOT) 7, Alanine Aminotransferase (ALT/SGPT) 8L, Alkaline Phosphatase 126H, ED-Eou-U-Type Natriuretic Peptide 20221S, Total Protein 4.8L, Albumin 2.6L, Albumin/Globulin Ratio 1.2 CBC/BMP Laboratory Tests 07/05/20 06:38 Microbiology Microbiology 07/02/20 Urine Culture - Final, Complete GME ATTESTATION GME ATTESTATION My faculty preceptor for this patient encounter was physically present during the encounter and was fully available. All aspects of the patient interview, examination, medical decision making process, and medical care plan development were reviewed and approved by the faculty preceptor. The faculty preceptor is aware and concurs with the plan as stated in the body of this note and will attest to such by his/her cosignature. ATTENDING NOTE Attending Attestation: Patient independently seen and examined. I have discussed in detail with the resident / student the findings and plan of treatment as documented by the resident / student. I agree with their findings and treatment plan and have edited their documentation. I will continue to follow the patient during this hospital stay. GERMAN BECKHAM DO Jul 05, 2020 10:37 CRISTINA MURCIA MD Jul 07, 2020 11:42
[2020-07-05 14:00] VITALS: BP 109/55
[2020-07-05 22:00] VITALS: BP 116/69
[2020-07-05] MEDS: GABAPENTIN 300 MG CAP PO SCH (22:12)
[2020-07-05] MEDS: ATORVASTATIN 20 MG TAB PO SCH (22:13)
[2020-07-06] MEDS: ALBUTEROL 90 MCG/ACT 8GM HFA INHALER INH PRN ×5 (00:38→23:33)
[2020-07-06] MEDS: LIDOCAINE 4% CREAM 5GM (LMX4) TOP PRN ×2 (00:58→16:34)
[2020-07-06 06:00] VITALS: BP 129/75
[2020-07-06] MEDS: IPRATROPIUM HFA INHALER 12.9 GRAMS (ATROVENT HFA) INH SCH ×2 (07:47→19:45)
[2020-07-06] MEDS: TORSEMIDE (DEMADEX) 50 MG PER 1/2 TAB PO SCH (08:54)
[2020-07-06] MEDS: OMEPRAZOLE 20 MG CAP PO SCH (08:54)
[2020-07-06] MEDS: FEBUXOSTAT 40 MG TABLET (ULORIC) PO SCH (08:54)
[2020-07-06] MEDS: SERTRALINE HCL 50 MG TAB PO SCH (08:54)
[2020-07-06] MEDS: APIXABAN 2.5 MG TAB (ELIQUIS) PO SCH ×2 (08:54→21:33)
[2020-07-06] MEDS: METOPROLOL SUCC *XL* 25MG TAB (TopROL *XL*) PO SCH (08:55)
[2020-07-06] MEDS: SPIRONOLACTONE 25 MG TAB PO SCH (08:55)
[2020-07-06] MEDS: MAALOX 30 ML SUSP *UDC PO PRN (08:59)
--- NOTE | 2020-07-06 10:41 | IPNPDOC ---
Text Note Date of Service The patient was seen on 07/06/20. NOTE SUBJECTIVE: Patient seen and examined at bedside. No acute overnight events reported. Patient has no new medical complaints this morning. OBJECTIVE VITAL SIGNS: Please see below. GENERAL: elderly, frail, lying comfortably in bed HEENT: NC/AT CARDIOVASCULAR: Normal S1, S2. Regular rate and rhythm. RESPIRATORY: Clear breath sounds bilaterally ABDOMINAL: Soft, nondistended. Nontender. Normoactive bowel sounds. EXTREMITIES: No edema NEUROLOGICAL: No focal neurological deficits LABORATORY DATA, IMAGING STUDIES, MICROBIOLOGY: Please see below. A/P: 85F with PMHx including pericardial effusion s/p pericardial window, atrial fibrillation, CAD, severe tricuspid regurgitation, and hypertension who presented to [facility] after a mechanical fall at home. Currently working with physical therapy pending placement to rehab. #Falls - appears to be mechanical - based on history unlikely syncope - continue PT - she will need rehab. Currently pending placement to rehab facility. Patient ultimately wishes to return to her previous living situation after rehab however this may be unrealistic as the patient was living by herself. #Chest Discomfort -Patient complaints of chest discomfort that is constant in nature. Troponins have been negative. She states she has had this pain for a long time. Likely related to her pericardial window and CHF. -Echocardiogram has been ordered with report pending #Scalp Hematoma - healing well #CKD stage 3 -Cr stable and at baseline. 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 -Patient is continued on her home medications. She is followed by cardiology outpatient -Have ordered a repeat echocardiogram as outpatient records are not available -Patient is continued on Demedex #Hypotension - resolved #COPD -Stable - continue home medications #CAD s/p LCx and RCA stent -On atorvastatin and metoprolol, and spironolactone #HTN -Continue spironolactone, metoprolol and demedex #Gout -Continue febuxostat #Chronic Atrial Fibrillation -Patient is on dose adjusted Eliquis. Will continue #Depression/Anxiety -Continue Sertraline #DVT Prophylaxis - as above receiving Eliquis DISPOSITION: Awaiting echo and placement into rehab VS,Fishbone, I+O VS, Fishbone, I+O Vital Signs Date Time Temp Pulse Resp B/P (MAP) Pulse Ox O2 Delivery O2 Flow Rate FiO2 07/06/20 08:55 103 129/75 07/06/20 06:00 97.5 20 93 Nasal Cannula 2.0 I&O- Last 24 Hours up to 6 AM 07/06/20 06:00 Intake Total 1410 ml Output Total 0 ml Balance 1410 ml CRISTINA MURCIA MD Jul 06, 2020 10:41
[2020-07-06 11:40] LABS: CK-MB VALUE MASS 2.3 NG/ML (<3.6); MB/CK RELATIVE INDEX 4.34 (< OR =4); TROPONIN I 0.06 NG/ML (< 0.10)
[2020-07-06 14:00] VITALS: BP 126/74
[2020-07-06] MEDS: ACETAMINOPHEN TAB 650MG DOSE (2X325MG) PO PRN (15:12)
[2020-07-06] MEDS: AZELASTINE 137MCG NASAL SPY 30 ML (ASTELIN) PRN (16:44)
[2020-07-06] MEDS: POLYVINYL ALCOHOL OPHTH SOLN 15 ML(LIQUITEARS) OU PRN (21:33)
[2020-07-06] MEDS: ATORVASTATIN 20 MG TAB PO SCH (21:33)
[2020-07-06] MEDS: GABAPENTIN 300 MG CAP PO SCH (21:33)
[2020-07-06 22:00] VITALS: BP 105/56
[2020-07-07] MEDS: ALBUTEROL 90 MCG/ACT 8GM HFA INHALER INH PRN ×3 (03:27→15:16)
[2020-07-07 06:00] VITALS: BP 108/54
[2020-07-07] MEDS: POLYVINYL ALCOHOL OPHTH SOLN 15 ML(LIQUITEARS) OU PRN ×2 (06:06→09:23)
[2020-07-07] MEDS: LIDOCAINE 4% CREAM 5GM (LMX4) TOP PRN ×3 (06:06→15:49)
[2020-07-07 06:29] LABS: BASO % 0.2 % (0.0-1.0); HEMATOCRIT 35.5 % (36.0-47.0); HEMOGLOBIN 10.9 g/dl (12.0-15.5); LYMPH # 1.5 10^3/uL (1.5-5.0); LYMPH % 26.1 % (24.0-44.0); MEAN CORPUSCULAR HEMOGLOBIN 28.5 pg (27.0-33.0); MEAN CORPUSCULAR HGB CONC 30.7 g/dl (32.0-36.5); MEAN CORPUSCULAR VOLUME 92.7 fl (80.0-96.0); MONO # 0.4 10^3/uL (0.0-0.8); MONO % 6.6 % (2.0-8.0); NEUTROPHILS # 3.9 10^3/uL (1.5-8.5); NEUTROPHILS % 66.6 % (36.0-66.0); PLATELET COUNT, AUTOMATED 198 10^3/uL (150-450); RED BLOOD COUNT 3.83 10^6/uL (4.00-5.40); WHITE BLOOD COUNT 5.9 10^3/uL (4.0-10.0)
[2020-07-07 06:47] LABS: CREATININE FOR GFR 1.1 MG/DL (0.55-1.30); GLOMERULAR FILTRATION RATE 50.3 (>32); POTASSIUM SERUM 4.4 MEQ/L (3.5-5.1)
[2020-07-07 06:48] LABS: CALCIUM LEVEL 7.8 MG/DL (8.8-10.2)
[2020-07-07] MEDS: IPRATROPIUM HFA INHALER 12.9 GRAMS (ATROVENT HFA) INH SCH ×2 (07:26→20:21)
[2020-07-07] MEDS: SERTRALINE HCL 50 MG TAB PO SCH (09:22)
[2020-07-07] MEDS: METOPROLOL SUCC *XL* 25MG TAB (TopROL *XL*) PO SCH (09:22)
[2020-07-07] MEDS: FEBUXOSTAT 40 MG TABLET (ULORIC) PO SCH (09:22)
[2020-07-07] MEDS: APIXABAN 2.5 MG TAB (ELIQUIS) PO SCH ×2 (09:22→20:22)
[2020-07-07] MEDS: OMEPRAZOLE 20 MG CAP PO SCH (09:22)
[2020-07-07] MEDS: TORSEMIDE (DEMADEX) 50 MG PER 1/2 TAB PO SCH (09:22)
[2020-07-07] MEDS: SPIRONOLACTONE 25 MG TAB PO SCH (09:22)
[2020-07-07] MEDS: AZELASTINE 137MCG NASAL SPY 30 ML (ASTELIN) PRN (09:23)
[2020-07-07] MEDS: ACETAMINOPHEN TAB 650MG DOSE (2X325MG) PO PRN (10:24)
--- NOTE | 2020-07-07 11:01 | IPNPDOC ---
Text Note Date of Service The patient was seen on 07/07/20. NOTE SUBJECTIVE: Patient seen and examined at bedside. No acute overnight events reported. Patient has no new medical complaints this morning. OBJECTIVE VITAL SIGNS: Please see below. GENERAL: elderly, frail, lying comfortably in bed, in good spirits HEENT: NC/AT CARDIOVASCULAR: Normal S1, S2. Regular rate and rhythm. RESPIRATORY: Clear breath sounds bilaterally ABDOMINAL: Soft, nondistended. Nontender. Normoactive bowel sounds. EXTREMITIES: No edema NEUROLOGICAL: No focal neurological deficits LABORATORY DATA, IMAGING STUDIES, MICROBIOLOGY: Please see below. A/P: 85F with PMHx including pericardial effusion s/p pericardial window, atrial fibrillation, CAD, severe tricuspid regurgitation, and hypertension who presented to [facility] after a mechanical fall at home. Currently working with physical therapy pending placement to rehab. #Falls - appears to be mechanical - based on history unlikely syncope - continue PT - she will need rehab. Currently pending placement to rehab facility. Patient ultimately wishes to return to her previous living situation after rehab however this may be unrealistic as the patient was living by herself. #Chest Discomfort -Patient complaints of chest discomfort that is constant in nature. Troponins have been negative. She states she has had this pain for a long time. Likely related to her pericardial window and CHF. -Echocardiogram has been ordered with report pending #Scalp Hematoma - healing well #CKD stage 3 -Cr stable and at baseline. 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 -Patient is continued on her home medications. She is followed by cardiology outpatient -Have ordered a repeat echocardiogram as outpatient records are not available -Patient is continued on Demedex #Hypotension - resolved #COPD -Stable - continue home medications #CAD s/p LCx and RCA stent -On atorvastatin and metoprolol, and spironolactone #HTN -Continue spironolactone, metoprolol and demedex #Gout -Continue febuxostat #Chronic Atrial Fibrillation -Patient is on dose adjusted Eliquis. Will continue #Depression/Anxiety -Continue Sertraline #DVT Prophylaxis - as above receiving Eliquis DISPOSITION: Awaiting echo and placement into rehab VS,Angelica, I+O VS, Milade, I+O Laboratory Tests 07/07/20 05:48 Vital Signs Date Time Temp Pulse Resp B/P (MAP) Pulse Ox O2 Delivery O2 Flow Rate FiO2 07/07/20 09:22 91 108/54 07/07/20 07:27 15 07/07/20 06:00 97.5 94 Nasal Cannula 2.0 I&O- Last 24 Hours up to 6 AM 07/07/20 06:00 Intake Total 1350 ml Output Total 0 ml Balance 1350 ml CRISTINA MURCIA MD Jul 07, 2020 11:01
[2020-07-07 14:00] VITALS: BP 103/59
[2020-07-07] MEDS: ACETAMINOPHEN 650MG ER TAB (TYLENOL ARTHRITIS) PO PRN (15:49)
[2020-07-07] MEDS: MAALOX 30 ML SUSP *UDC PO PRN (18:14)
[2020-07-07] MEDS: GABAPENTIN 300 MG CAP PO SCH (20:22)
[2020-07-07] MEDS: ATORVASTATIN 20 MG TAB PO SCH (20:22)
[2020-07-07 22:00] VITALS: BP 100/57
[2020-07-08] MEDS: ACETAMINOPHEN 650MG ER TAB (TYLENOL ARTHRITIS) PO PRN ×3 (00:22→17:51)
[2020-07-08] MEDS: ALBUTEROL 90 MCG/ACT 8GM HFA INHALER INH PRN ×6 (00:32→20:02)
[2020-07-08 06:00] VITALS: BP 103/59
[2020-07-08] MEDS: IPRATROPIUM HFA INHALER 12.9 GRAMS (ATROVENT HFA) INH SCH ×2 (07:15→20:02)
[2020-07-08] MEDS: METOPROLOL SUCC *XL* 25MG TAB (TopROL *XL*) PO SCH (09:16)
[2020-07-08] MEDS: SPIRONOLACTONE 25 MG TAB PO SCH (09:17)
[2020-07-08] MEDS: OMEPRAZOLE 20 MG CAP PO SCH (09:17)
[2020-07-08] MEDS: TORSEMIDE (DEMADEX) 50 MG PER 1/2 TAB PO SCH (09:17)
[2020-07-08] MEDS: SERTRALINE HCL 50 MG TAB PO SCH (09:17)
[2020-07-08] MEDS: APIXABAN 2.5 MG TAB (ELIQUIS) PO SCH ×2 (09:17→22:34)
[2020-07-08] MEDS: FEBUXOSTAT 40 MG TABLET (ULORIC) PO SCH (09:17)
--- NOTE | 2020-07-08 11:43 | IPNPDOC ---
Text Note Date of Service The patient was seen on 07/08/20. NOTE SUBJECTIVE: Patient seen and examined at bedside. No acute overnight events reported. Patient has no new medical complaints this morning. OBJECTIVE VITAL SIGNS: Please see below. GENERAL: elderly, frail, lying comfortably in bed, in good spirits HEENT: NC/AT CARDIOVASCULAR: Normal S1, S2. Regular rate and rhythm. RESPIRATORY: Clear breath sounds bilaterally ABDOMINAL: Soft, nondistended. Nontender. Normoactive bowel sounds. EXTREMITIES: No edema NEUROLOGICAL: No focal neurological deficits LABORATORY DATA, IMAGING STUDIES, MICROBIOLOGY: Please see below. A/P: 85F with PMHx including pericardial effusion s/p pericardial window, atrial fibrillation, CAD, severe tricuspid regurgitation, and hypertension who presented to [facility] after a mechanical fall at home. Currently working with physical therapy pending placement to rehab. #SOB - uses 2L O2 at night only at baseline - elevated BNP, trending down very slowly - repeat CXR pending - difficult to diurese given soft blood pressures #Falls - appears to be mechanical - based on history unlikely syncope - continue PT - she will need rehab. Currently pending placement to rehab facility. Patient ultimately wishes to return to her previous living situation after rehab however this may be unrealistic as the patient was living by herself. #Chest Discomfort -Patient complaints of chest discomfort that is constant in nature. Troponins have been negative. She states she has had this pain for a long time. Likely related to her pericardial window and CHF. -Echocardiogram has been ordered with report pending #Scalp Hematoma - healing well #CKD stage 3 -Cr stable and at baseline. 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 -Patient is continued on her home medications. She is followed by cardiology outpatient -Have ordered a repeat echocardiogram as outpatient records are not available -Patient is continued on Demedex #Hypotension - resolved #COPD -Stable - continue home medications #CAD s/p LCx and RCA stent -On atorvastatin and metoprolol, and spironolactone #HTN -Continue spironolactone, metoprolol and demedex #Gout -Continue febuxostat #Chronic Atrial Fibrillation -Patient is on dose adjusted Eliquis. Will continue #Depression/Anxiety -Continue Sertraline #DVT Prophylaxis - as above receiving Eliquis DISPOSITION: Awaiting echo, pending clinical improvement VS,Fishbone, I+O VS, Fishbone, I+O Vital Signs Date Time Temp Pulse Resp B/P (MAP) Pulse Ox O2 Delivery O2 Flow Rate FiO2 07/08/20 11:19 13 07/08/20 09:16 88 103/59 07/08/20 06:00 97.6 94 Nasal Cannula 2.0 I&O- Last 24 Hours up to 6 AM 07/08/20 05:59 Intake Total 640 ml Output Total 600 ml Balance 40 ml CRISTINA MURCIA MD Jul 08, 2020 11:43
--- NOTE | 2020-07-08 11:43 | REP ---
INDICATION: interim eval COMPARISON: 07/01/2020 TECHNIQUE: PA and lateral. FINDINGS: Moderate left and small right pleural effusions along with associated lower lobe airspace disease (left greater than right). No pneumothorax. Visualized portions of the mediastinum and cardiac silhouette are similar to prior examination again suggesting cardiomegaly. Skeletal structures demonstrate age-related osteopenia and degenerative changes. IMPRESSION: Moderate left and small right pleural effusions along with associated passive atelectasis. <Electronically signed by Pedrito Martinez > 07/08/20 [id number]
[2020-07-08 12:54] LABS: THYROXINE (T4) 5.2 UG/DL (4.5-12.0)
[2020-07-08] MEDS: AZELASTINE 137MCG NASAL SPY 30 ML (ASTELIN) PRN (12:56)
[2020-07-08 14:00] VITALS: BP 105/60
--- NOTE | 2020-07-08 14:12 | ECHO ---
DATE OF PROCEDURE: 07/06/2020 Age: 85 Gender: Female Height: 153 cm Weight: 59 kg REFERRING PHYSICIAN: Roverto Messina DO INDICATION: Atrial fibrillation and syncope. MEASUREMENTS: IVS 0.9 cm LV 4.1 cm LVPW 1.2 cm LA 4.4 cm Aorta 3.2 cm RV 3.9 cm IVC 2.7 cm FINDINGS: This study is of acceptable technical quality. The patient is in atrial fibrillation with controlled rate. Left ventricle has normal size. There is borderline left ventricular hypertrophy. There is a D-shape to the interventricular septum both in systole and diastole. Overall estimated EF around 60% to 65%. Right ventricle is dilated and hypokinetic. There is severe biatrial enlargement. Aortic valve is sclerotic, but it appears to have three cusps and grossly preserved mobility. There are prominent degenerative abnormalities of the mitral valve with mitral annular calcifications. Tricuspid valve appears normal. Pulmonic valve was not well seen. No pericardial effusion is noted. Left pleural effusion is seen. Inferior vena cava is dilated and there is no appreciable collapse with inspiration indicative of very high central venous pressure. The aortic root and aortic arch were not well seen. Doppler interrogation of the aortic valve reveals trivial stenosis (mean gradient 11 mmHg). Mild aortic insufficiency is also noted. Approximately moderate mitral insufficiency is seen. There is severe tricuspid insufficiency. Likely secondary to RV dysfunction and pulmonary hypertension. Calculated pulmonary artery pressure is at least 80 mmHg corresponding to severe pulmonary hypertension. Evaluation of diastolic function is inconclusive due to underlying atrial fibrillation. CONCLUSION: 1. Study is of acceptable technical quality, underlying atrial fibrillation with controlled rate. 2. Normal LV size with preserved LV systolic function. 3. Dilated hypokinetic right ventricle with signs of both pressure and volume overload. 4. Severe biatrial enlargement. 5. Aortic sclerosis resulting in mild stenosis and mild insufficiency. 6. Moderate mitral insufficiency. 7. Severe tricuspid insufficiency. 8. Very high central venous pressure and severe pulmonary hypertension. 9. Left pleural effusion. MTDD
[2020-07-08] MEDS ORDERED: FUROSEMIDE 20MG/2ML VIAL (J1940) IV ONE (14:50)
[2020-07-08 20:12] VITALS: O2SAT 91
[2020-07-08 22:00] VITALS: BP 94/54
[2020-07-08] MEDS: GABAPENTIN 300 MG CAP PO SCH (22:34)
[2020-07-08] MEDS: ATORVASTATIN 20 MG TAB PO SCH (22:34)
[2020-07-09] MEDS: ALBUTEROL 90 MCG/ACT 8GM HFA INHALER INH PRN ×3 (00:15→07:58)
[2020-07-09] MEDS: MAALOX 30 ML SUSP *UDC PO PRN (03:06)
[2020-07-09] MEDS: ACETAMINOPHEN 650MG ER TAB (TYLENOL ARTHRITIS) PO PRN ×2 (03:06→23:17)
[2020-07-09 06:00] VITALS: BP 90/55
[2020-07-09 06:03] LABS: BASO % 0.1 % (0.0-1.0); HEMATOCRIT 36.1 % (36.0-47.0); HEMOGLOBIN 11.1 g/dl (12.0-15.5); LYMPH # 1.2 10^3/uL (1.5-5.0); MEAN CORPUSCULAR HEMOGLOBIN 28.2 pg (27.0-33.0); MEAN CORPUSCULAR HGB CONC 30.7 g/dl (32.0-36.5); MEAN CORPUSCULAR VOLUME 91.9 fl (80.0-96.0); MONO # 0.5 10^3/uL (0.0-0.8); MONO % 6.4 % (2.0-8.0); NEUTROPHILS # 5.7 10^3/uL (1.5-8.5); PLATELET COUNT, AUTOMATED 211 10^3/uL (150-450); RED BLOOD COUNT 3.93 10^6/uL (4.00-5.40); WHITE BLOOD COUNT 7.5 10^3/uL (4.0-10.0)
[2020-07-09 06:26] LABS: CALCIUM LEVEL 8.3 MG/DL (8.8-10.2); CREATININE FOR GFR 1.11 MG/DL (0.55-1.30); GLOMERULAR FILTRATION RATE 49.7 (>32); POTASSIUM SERUM 4.5 MEQ/L (3.5-5.1)
[2020-07-09] MEDS: IPRATROPIUM HFA INHALER 12.9 GRAMS (ATROVENT HFA) INH SCH ×2 (07:58→20:00)
[2020-07-09] MEDS: METOPROLOL SUCC *XL* 25MG TAB (TopROL *XL*) PO SCH (09:00)
[2020-07-09] MEDS: APIXABAN 2.5 MG TAB (ELIQUIS) PO SCH ×2 (09:01→22:53)
[2020-07-09] MEDS: FEBUXOSTAT 40 MG TABLET (ULORIC) PO SCH (09:01)
[2020-07-09] MEDS: OMEPRAZOLE 20 MG CAP PO SCH (09:01)
[2020-07-09] MEDS: SPIRONOLACTONE 25 MG TAB PO SCH (09:01)
[2020-07-09] MEDS: TORSEMIDE (DEMADEX) 50 MG PER 1/2 TAB PO SCH ×2 (09:01→16:17)
[2020-07-09] MEDS: SERTRALINE HCL 50 MG TAB PO SCH (09:02)
[2020-07-09] MEDS: POLYVINYL ALCOHOL OPHTH SOLN 15 ML(LIQUITEARS) OU PRN (09:02)
--- NOTE | 2020-07-09 09:50 | IPNPDOC ---
Text Note Date of Service The patient was seen on 07/09/20. NOTE Subjective: Patient is a 85-year-old female with a PMHx of Pericardial effusion s/p pericardial window, A. fib, CAD, Severe tricuspid regurgitation, HTN, who presented to [facility] after experiencing mechanical falls at home. Patient was found to have an exacerbation of her CHF. She is admitted to hospital service for further evaluation and treatment. Patient was seen and examined at the bedside. Currently sitting up in chair eating breakfast. Denies any altercations reports that she does experience some shortness of breath. Denies any nausea, vomiting, abdominal pain, diarrhea, or discomfort with urination. Objective: Vitals (See below) General: Sitting up in chair eating breakfast, comfortable, AAOx3 HEENT: NC, AT CVS: +S1S2 Lungs: Diminished lung sounds at bases Abdomen: Soft, nondistended, nontender Extremities: Lower tremors are without edema, - Calf tenderness Imaging: CT head 07/01: Small left parietal scalp hematoma. Generalized volume loss. Small vessel changes and vascular calcification. No acute intracranial abnormality.. CT cervical spine 07/01: Degenerative disc and osteoarthritic facet disease with changes stable from October 08, 2019. No traumatic abnormality noted. Air and ingested material distends the cervical and upper thoracic esophagus unchanged from October 08, 2019. Reflux disease versus gastroesophageal obstruction lesion.. CXR 07/01: Moderate cardiac enlargement. Vascular cephalization and effusions consistent with CHF pattern. CXR 07/08: Moderate left and small right pleural effusions along with associated passive atelectasis. ECHO 07/07: 1. Study is of acceptable technical quality, underlying atrial fibrillation with controlled rate. 2. Normal LV size with preserved LV systolic function. 3. Dilated hypokinetic ventricle with signs of both pressure and volume overload. 4. Severe biatrial enlargement. 5. Aortic sclerosis resulting in mild stenosis and mild insufficiency. 6. Moderate mitral insufficiency. 7. Severe tricuspid insufficiency. 8. Very high central venous pressure and severe pulmonary hypertension. 9. Left pleural effusion. 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 - Will have outpatient follow-up with cardiology Chronic COPD - No evidence of exacerbation - c/w inhaled therapy as ordered CAD s/p LCx and RCA stent - c/w Atorvastatin, Metoprolol, Spironolactone Hypotension - Patient's BP has remained at lower limits of normal; unable to adaquately diuresis given hold parameters - Will start Midodrine Gout - c/w febuxostat Chronic Atrial Fibrillation - c/w rate control with metoprolol - c/w full anticoagulation with Eliquis Depression/Anxiety - c/w Sertraline DVT prophylaxis - c/w full anticoagulation with Eliquis Disposition: - Awaiting clinical improvement VSAngelica I+O VS, Angelica I+O Laboratory Tests 07/09/20 05:35 Vital Signs Date Time Temp Pulse Resp B/P (MAP) Pulse Ox O2 Delivery O2 Flow Rate FiO2 07/09/20 06:00 97.5 102 18 90/55 (67) 90 Nasal Cannula 3.0 07/08/20 20:12 32 I&O- Last 24 Hours up to 6 AM 07/09/20 06:00 Intake Total 650 ml Output Total 600 ml Balance 50 ml BRETT SMITH MD Jul 09, 2020 09:50
[2020-07-09] MEDS: MIDODRINE 5 MG TAB PO SCH ×3 (11:12→16:17)
[2020-07-09 14:00] VITALS: BP 102/61
[2020-07-09 21:49] VITALS: O2SAT 91
[2020-07-09 22:00] VITALS: BP 112/55
[2020-07-09] MEDS: GABAPENTIN 300 MG CAP PO SCH (22:53)
[2020-07-09] MEDS: ATORVASTATIN 20 MG TAB PO SCH (22:53)
[2020-07-10] MEDS: ALBUTEROL 90 MCG/ACT 8GM HFA INHALER INH PRN ×3 (00:28→11:09)
[2020-07-10 06:00] VITALS: BP 102/60
[2020-07-10] MEDS: IPRATROPIUM HFA INHALER 12.9 GRAMS (ATROVENT HFA) INH SCH (07:21)
[2020-07-10 09:09] LABS: BASO % 0.3 % (0.0-1.0); HEMATOCRIT 38.9 % (36.0-47.0); HEMOGLOBIN 12.1 g/dl (12.0-15.5); LYMPH # 1.6 10^3/uL (1.5-5.0); LYMPH % 22.2 % (24.0-44.0); MEAN CORPUSCULAR HEMOGLOBIN 28.9 pg (27.0-33.0); MEAN CORPUSCULAR HGB CONC 31.1 g/dl (32.0-36.5); MEAN CORPUSCULAR VOLUME 93.1 fl (80.0-96.0); MONO # 0.5 10^3/uL (0.0-0.8); MONO % 6.2 % (2.0-8.0); NEUTROPHILS # 5.2 10^3/uL (1.5-8.5); NEUTROPHILS % 70.9 % (36.0-66.0); PLATELET COUNT, AUTOMATED 256 10^3/uL (150-450); RED BLOOD COUNT 4.18 10^6/uL (4.00-5.40); WHITE BLOOD COUNT 7.3 10^3/uL (4.0-10.0)
[2020-07-10] MEDS: LIDOCAINE 4% CREAM 5GM (LMX4) TOP PRN (09:20)
[2020-07-10] MEDS: OMEPRAZOLE 20 MG CAP PO SCH (09:21)
[2020-07-10] MEDS: APIXABAN 2.5 MG TAB (ELIQUIS) PO SCH (09:21)
[2020-07-10] MEDS: SPIRONOLACTONE 25 MG TAB PO SCH (09:21)
[2020-07-10] MEDS: TORSEMIDE (DEMADEX) 50 MG PER 1/2 TAB PO SCH (09:21)
[2020-07-10] MEDS: SERTRALINE HCL 50 MG TAB PO SCH (09:22)
[2020-07-10] MEDS: MIDODRINE 5 MG TAB PO SCH (09:22)
[2020-07-10] MEDS: FEBUXOSTAT 40 MG TABLET (ULORIC) PO SCH (09:22)
[2020-07-10 09:24] VITALS: BP 110/55
[2020-07-10] MEDS: METOPROLOL SUCC *XL* 25MG TAB (TopROL *XL*) PO SCH (09:24)
[2020-07-10] MEDS: ACETAMINOPHEN 650MG ER TAB (TYLENOL ARTHRITIS) PO PRN (09:35)
[2020-07-10 09:36] LABS: CALCIUM LEVEL 8.4 MG/DL (8.8-10.2); CREATININE FOR GFR 1.07 MG/DL (0.55-1.30); GLOMERULAR FILTRATION RATE 51.9 (>32); MAGNESIUM LEVEL 2.4 MG/DL (1.8-2.4); POTASSIUM SERUM 4.2 MEQ/L (3.5-5.1)
[2020-07-10] MEDS ORDERED: TORS100T PO (10:10)
[2020-07-10] MEDS ORDERED: MIDO5TA PO (10:10)
--- NOTE | 2020-07-10 12:21 | DS.PDOC ---
Discharge Summary General Date of Admission Jul 01, 2020 at 21:50 Date of Discharge 07/10/2020 Discharge Summary PROCEDURES PERFORMED DURING STAY: [None]. ADMITTING DIAGNOSES / DISCHARGE DIAGNOSES: SOB likely 2/2 fluid overload Repeated falls - likely 2/2 mechanical Chest Discomfort Scalp Hematoma CKD3 Chronic severe tricuspid valve regurgitation with moderate to severe pulmonary HTN Chronic COPD CAD s/p LCx and RCA stent Hypotension Gout Chronic Atrial Fibrillation Depression/Anxiety DVT prophylaxis COMPLICATIONS/CHIEF COMPLAINT: Falls HISTORY OF PRESENT ILLNESS: Patient is a 85-year-old female with a PMHx of Pericardial effusion s/p pericardial window, A. fib, CAD, Severe tricuspid regurgitation, HTN, who presented to [facility] after experiencing mechanical falls at home. Patient was found to have an exacerbation of her CHF. She is admitted to hospital service for further evaluation and treatment. HOSPITAL COURSE: SOB likely 2/2 fluid overload - Supplemental oxygen requirement has been improving - c/w diuresis - c/w Torsemide BID / Spironolactone - Will need to continue for about 7 days and have an evaluation by cardiology Repeated falls - likely 2/2 mechanical - No evidence of syncope - c/w PT and OT; recommend rehab Chest Discomfort - Patient complaints of chest discomfort that is constant in nature - Troponins have been negative - EKG reviewed - ECHO reviewed above Scalp Hematoma - No evidence of worsening bleeding CKD3 - Cr remains stable Chronic severe tricuspid valve regurgitation with moderate to severe pulmonary HTN - ECHO 2018 demonstrating severe tricuspid regurgitation with moderate to severe pulmonary hypertension. - Will have outpatient follow-up with cardiology Chronic COPD - No evidence of exacerbation - c/w inhaled therapy as ordered CAD s/p LCx and RCA stent - c/w Atorvastatin, Metoprolol, Spironolactone Hypotension - Patient's BP has remained appropriate; has been able to receive diuretic therapy - Will c/w Midodrine Gout - c/w febuxostat Chronic Atrial Fibrillation - c/w rate control with metoprolol - c/w full anticoagulation with Eliquis Depression/Anxiety - c/w Sertraline DVT prophylaxis - c/w full anticoagulation with Eliquis DISCHARGE MEDICATIONS: Please see below. ALLERGIES: Please see below. PHYSICAL EXAMINATION ON DISCHARGE: Vitals (See below) General: Patient is again seen sitting up in chair, reports that her breathing is doing better, awake, alert and oriented to person, place and time HEENT: NC, AT CVS: +S1S2 Lungs: There appears to be improved aeration bilaterally. No evidence of wheezing, rhonchi Abdomen: Abdomen is soft without any appreciated distention or tenderness Extremities: No edema appreciated at lower extremities, - Calf tenderness LABORATORY DATA: Please see below. IMAGING: CT head 07/01: Small left parietal scalp hematoma. Generalized volume loss. Small vessel changes and vascular calcification. No acute intracranial abnormality.. CT cervical spine 07/01: Degenerative disc and osteoarthritic facet disease with changes stable from October 08, 2019. No traumatic abnormality noted. Air and ingested material distends the cervical and upper thoracic esophagus unchanged from October 08, 2019. Reflux disease versus gastroesophageal obstruction lesion.. CXR 07/01: Moderate cardiac enlargement. Vascular cephalization and effusions consistent with CHF pattern. CXR 07/08: Moderate left and small right pleural effusions along with associated passive at electasis. ECHO 07/07: 1. Study is of acceptable technical quality, underlying atrial fibrillation with controlled rate. 2. Normal LV size with preserved LV systolic function. 3. Dilated hypokinetic ventricle with signs of both pressure and volume overload. 4. Severe biatrial enlargement. 5. Aortic sclerosis resulting in mild stenosis and mild insufficiency. 6. Moderate mitral insufficiency. 7. Severe tricuspid insufficiency. 8. Very high central venous pressure and severe pulmonary hypertension. 9. Left pleural effusion. ACTIVITY: [As tolerated]. DISCHARGE PLAN: Follow-up with primary care provider, and cardiology within the next 7 days Remain compliant with treatment plan and medications Return to the ER if you experience any problems DISPOSITION: SSV ITEMS TO FOLLOWUP ON ON OUTPATIENT: Adjustment of diuretic therapy within the next 7 days DISCHARGE CONDITION: [Stable]. TIME SPENT ON DISCHARGE: 35 minutes. Vital Signs/I&Os Vital Signs Date Time Temp Pulse Resp B/P (MAP) Pulse Ox O2 Delivery O2 Flow Rate FiO2 07/10/20 09:24 97 110/55 07/10/20 06:00 98.0 18 97 Nasal Cannula 2.0 07/08/20 20:12 32 I&O- Last 24 Hours up to 6 AM 07/10/20 06:00 Intake Total 660 ml Output Total 1275 ml Balance -615 ml Laboratory Data Labs 24H Laboratory Tests 2 07/10/20 08:46: Immature Granulocyte % (Auto) 0.4, Neutrophils (%) (Auto) 70.9H, Lymphocytes (%) (Auto) 22.2L, Monocytes (%) (Auto) 6.2, Eosinophils (%) (Auto) 0.0, Basophils (%) (Auto) 0.3, Neutrophils # (Auto) 5.2, Lymphocytes # (Auto) 1.6, Monocytes # (Auto) 0.5, Eosinophils # (Auto) 0.0, Basophils # (Auto) 0.0, Nucleated Red Blo od Cells % (auto) 0.0, Anion Gap 6L, Glomerular Filtration Rate 51.9, Calcium Level 8.4L, Magnesium Level 2.4, YK-Lof-L-Type Natriuretic Peptide 92224D CBC/BMP Laboratory Tests 07/10/20 08:46 Microbiology Microbiology 07/02/20 Urine Culture - Final, Complete Discharge Medications Scheduled Apixaban (Eliquis) 2.5 Mg Tab, 2.5 MG PO BID, (Reported) Atorvastatin Calcium (Lipitor) 20 Mg Tab, 20 MG PO QHS, (Reported) Febuxostat (Uloric) 40 Mg Tab, 40 MG PO DAILY, (Reported) Gabapentin (Gabapentin) 300 Mg Cap, 300 MG PO QHS, (Reported) Metoprolol Succinate (Toprol Xl) 25 Mg Tab.er.24h, 25 MG PO DAILY, (Reported) Midodrine HCl (Midodrine HCl) 5 Mg Tablet, 5 MG PO 08,12,16 Omeprazole (Omeprazole) 40 Mg Cap, 40 MG PO DAILY, (Reported) Sertraline Hcl (Sertraline HCl) 50 Mg Tab, 50 MG PO DAILY, (Reported) Spironolactone (Spironolactone) 25 Mg Tab, 50 MG PO DAILY, (Reported) Torsemide (Torsemide) 100 Mg Tab, 50 MG PO BID Continue for 7 days Re-evaluate renal function / volume status Umeclidinium [place]cliffe (Incruse Ellipta) 62.5 Mcg/Inh Inh, 1 PUFF INH DAILY, (Reported) Scheduled PRN Acetaminophen (Tylenol Arthritis) 650 Mg Tab, 650 MG PO Q8H PRN for PAIN, (Reported) Albuterol Sulf (Albuterol Sulfate) 2.5 Mg/3 Ml Nebu, 2.5 MG INH Q4H PRN for SHORTNESS OF BREATH, (Reported) Albuterol Sulfate (Proair Hfa) 8.5 Gm Hfa.aer.ad, 2 PUFF INH Q4H PRN for SHORTNESS OF BREATH, (Reported) Azelastine HCl (Azelastine HCl) 0.1% [place].pump, 2 SPRAY NA DAILY PRN for NASAL CONGESTION, (Reported) Lidocaine HCl (Aspercreme) 4% Cream..g., 1 DOSE TOP TID PRN for PAIN, (Reported) Polyvinyl Alcohol (Artificial Tears) 1.4 % Radha, 1 DROP OU QID PRN for DRY EYES, (Reported) Allergies Coded Allergies: guaifenesin (Verified Allergy, Unknown, 06/29/18) codeine (Verified Adverse Reaction, Intermediate, HALLUCINATIONS, 06/29/18) meperidine (Verified Adverse Reaction, Intermediate, HALLUCINATIONS, 06/29/18) cyclobenzaprine (Verified Adverse Reaction, Mild, ALL MUSCLE RELAXANTS "KNOCK ME OUT", 06/29/18) BRETT SMITH MD Jul 10, 2020 12:21
== END 2020-07-10 12:25 | DRG 292 ==
LOC: M ED 16:17 → M ED INP 21:50 → ENRESERV 22:52 → M MSPAV 23:47
PROVIDERS: ADMIT Internal Medicine; ATTEND Internal Medicine
DX: I13.0 Hypertensive heart and chronic kidney disease with heart failure and stage 1 through stage 4 chronic kidney disease, or unspecified chronic kidney disease (principal); I48.20 Chronic atrial fibrillation, unspecified; R53.1 Weakness; S00.03XA Contusion of scalp, initial encounter; N18.30 Chronic kidney disease, stage 3 unspecified; I27.20 Pulmonary hypertension, unspecified; J44.9 Chronic obstructive pulmonary disease, unspecified; R29.6 Repeated falls; I36.0 Nonrheumatic tricuspid (valve) stenosis; I25.10 Atherosclerotic heart disease of native coronary artery without angina pectoris; Z95.2 Presence of prosthetic heart valve; M10.9 Gout, unspecified; F41.9 Anxiety disorder, unspecified; F32.9 Major depressive disorder, single episode, unspecified; Z79.899 Other long term (current) drug therapy; Z88.5 Allergy status to narcotic agent; Z88.8 Allergy status to other drugs, medicaments and biological substances; I25.2 Old myocardial infarction; K21.9 Gastro-esophageal reflux disease without esophagitis; M19.90 Unspecified osteoarthritis, unspecified site; Z87.891 Personal history of nicotine dependence; W18.30XA Fall on same level, unspecified, initial encounter; Y92.009 Unspecified place in unspecified non-institutional (private) residence as the place of occurrence of the external cause; I50.9 Heart failure, unspecified

== ENCOUNTER → 2020-07-12 | Outpatient (REF) ==
[~2020-07-12] MED LIST changes: +ASPE16CR TOP; +AZEL0.1S; +MIDO5TA PO; +PROAAER10 INH; +TOPR25TA PO
[2020-07-12 09:29] LABS: HEMATOCRIT 38.3 % (36.0-47.0); HEMOGLOBIN 11.5 g/dl (12.0-15.5); MEAN CORPUSCULAR HEMOGLOBIN 27.8 pg (27.0-33.0); MEAN CORPUSCULAR VOLUME 92.7 fl (80.0-96.0); PLATELET COUNT, AUTOMATED 312 10^3/uL (150-450); RED BLOOD COUNT 4.13 10^6/uL (4.00-5.40); WHITE BLOOD COUNT 8.3 10^3/uL (4.0-10.0)
[2020-07-12 09:37] LABS: CALCIUM LEVEL 8.4 MG/DL (8.8-10.2); CREATININE FOR GFR 1.36 MG/DL (0.55-1.30); GLOMERULAR FILTRATION RATE 39.3 (>32); POTASSIUM SERUM 4.1 MEQ/L (3.5-5.1)
== END ==
PROVIDERS: ATTEND Internal Medicine
DX: I50.9 Heart failure, unspecified (principal)

== ENCOUNTER → 2020-07-16 | Outpatient (REF) | payer MEDICARE ==
[2020-07-16 10:16] LABS: HEMATOCRIT 37.5 % (36.0-47.0); HEMOGLOBIN 11.3 g/dl (12.0-15.5); MEAN CORPUSCULAR HGB CONC 30.1 g/dl (32.0-36.5); MEAN CORPUSCULAR VOLUME 93.1 fl (80.0-96.0); PLATELET COUNT, AUTOMATED 274 10^3/uL (150-450); RED BLOOD COUNT 4.03 10^6/uL (4.00-5.40); WHITE BLOOD COUNT 7.4 10^3/uL (4.0-10.0)
[2020-07-16 11:09] LABS: CALCIUM LEVEL 8.6 MG/DL (8.8-10.2); CREATININE FOR GFR 1.5 MG/DL (0.55-1.30); GLOMERULAR FILTRATION RATE 35.1 (>32); POTASSIUM SERUM 6.2 MEQ/L (3.5-5.1)
== END ==
PROVIDERS: ATTEND Internal Medicine
DX: I50.9 Heart failure, unspecified (principal); Z20.822 Contact with and (suspected) exposure to COVID-19
CPT/HCPCS: 36415; 80048; 83880; 85027; U0003

== ENCOUNTER → 2020-07-17 | Outpatient (REF) | payer SELFPAY ==
[2020-07-17 11:19] LABS: CALCIUM LEVEL 8.1 MG/DL (8.8-10.2); CREATININE FOR GFR 1.38 MG/DL (0.55-1.30); GLOMERULAR FILTRATION RATE 38.7 (>32); POTASSIUM SERUM 3.9 MEQ/L (3.5-5.1)
== END ==
PROVIDERS: ATTEND Internal Medicine
DX: E87.5 Hyperkalemia (principal)

== ENCOUNTER → 2020-07-19 | Outpatient (REF) | payer MEDICARE, SELFPAY ==
[2020-07-19 12:01] LABS: HEMATOCRIT 36.8 % (36.0-47.0); HEMOGLOBIN 10.9 g/dl (12.0-15.5); MEAN CORPUSCULAR HEMOGLOBIN 27.5 pg (27.0-33.0); MEAN CORPUSCULAR HGB CONC 29.6 g/dl (32.0-36.5); MEAN CORPUSCULAR VOLUME 92.7 fl (80.0-96.0); PLATELET COUNT, AUTOMATED 276 10^3/uL (150-450); RED BLOOD COUNT 3.97 10^6/uL (4.00-5.40); WHITE BLOOD COUNT 6.2 10^3/uL (4.0-10.0)
[2020-07-19 12:30] LABS: CALCIUM LEVEL 8.4 MG/DL (8.8-10.2); CREATININE FOR GFR 1.08 MG/DL (0.55-1.30); GLOMERULAR FILTRATION RATE 51.3 (>32); POTASSIUM SERUM 3.8 MEQ/L (3.5-5.1)
--- NOTE | 2020-07-19 16:03 | REPPI ---
INDICATION: HYPOXIA/CHF. COMPARISON: 07/08/2020. TECHNIQUE: AP view chest. FINDINGS: There is cardiomegaly and vascular congestion. There is mild right base atelectasis/infiltrate and a small right effusion. Left basilar consolidative opacity is unchanged. There is calcification of the thoracic aorta. The mediastinal silhouette is unchanged. IMPRESSION: Cardiomegaly and mild vascular congestion. Consolidative opacity left lung base is unchanged, likely representing a combination of pleural fluid and consolidative atelectasis/infiltrate. Small right effusion appears unchanged but there is mildly increased right base atelectasis/infiltrate. <Electronically signed by Oscar Reid > 07/19/20 [id number]
== END ==
PROVIDERS: ATTEND Internal Medicine
DX: R91.8 Other nonspecific abnormal finding of lung field (principal); I51.7 Cardiomegaly; J90 Pleural effusion, not elsewhere classified; E87.5 Hyperkalemia

== ENCOUNTER → 2020-07-22 | Outpatient (REF) ==
[2020-07-22 17:22] LABS: HEMATOCRIT 35.1 % (36.0-47.0); HEMOGLOBIN 10.7 g/dl (12.0-15.5); MEAN CORPUSCULAR HEMOGLOBIN 27.7 pg (27.0-33.0); MEAN CORPUSCULAR HGB CONC 30.5 g/dl (32.0-36.5); MEAN CORPUSCULAR VOLUME 90.9 fl (80.0-96.0); PLATELET COUNT, AUTOMATED 269 10^3/uL (150-450); RED BLOOD COUNT 3.86 10^6/uL (4.00-5.40); WHITE BLOOD COUNT 6.8 10^3/uL (4.0-10.0)
[2020-07-22 17:44] LABS: CREATININE FOR GFR 1.41 MG/DL (0.55-1.30); GLOMERULAR FILTRATION RATE 37.7 (>32); POTASSIUM SERUM 3.3 MEQ/L (3.5-5.1)
[2020-07-22 17:45] LABS: CALCIUM LEVEL 8.6 MG/DL (8.8-10.2)
== END ==
PROVIDERS: ATTEND Physician Assistant
DX: I50.9 Heart failure, unspecified (principal)

== ENCOUNTER → 2020-07-23 | Outpatient (REF) | payer MEDICARE, SELFPAY ==
[2020-07-23 11:59] LABS: HEMATOCRIT 34.5 % (36.0-47.0); HEMOGLOBIN 10.3 g/dl (12.0-15.5); MEAN CORPUSCULAR HEMOGLOBIN 27.2 pg (27.0-33.0); MEAN CORPUSCULAR HGB CONC 29.9 g/dl (32.0-36.5); MEAN CORPUSCULAR VOLUME 91.3 fl (80.0-96.0); PLATELET COUNT, AUTOMATED 232 10^3/uL (150-450); RED BLOOD COUNT 3.78 10^6/uL (4.00-5.40); WHITE BLOOD COUNT 5.8 10^3/uL (4.0-10.0)
[2020-07-23 12:31] LABS: CALCIUM LEVEL 8.1 MG/DL (8.8-10.2); CREATININE FOR GFR 1.27 MG/DL (0.55-1.30); GLOMERULAR FILTRATION RATE 42.6 (>32); POTASSIUM SERUM 3.1 MEQ/L (3.5-5.1)
== END ==
PROVIDERS: ATTEND Internal Medicine
DX: I50.9 Heart failure, unspecified (principal); Z20.822 Contact with and (suspected) exposure to COVID-19
CPT/HCPCS: 36415; 80048; 83880; 85027; U0003

== ENCOUNTER → 2020-07-25 | Outpatient (REF) | payer MEDICARE ==
--- NOTE | 2020-07-25 15:17 | REPPI ---
INDICATION: CHF COMPARISON: None. TECHNIQUE: Portable AP view of the chest FINDINGS: Cardiomegaly, diffusely increased interstitial markings, increased pulmonary vasculature, lower lobe opacities and small pleural effusions (left greater than right) consistent with the given history of CHF. IMPRESSION: Continued evidence for CHF/pulmonary edema <Electronically signed by Pedrito Martinez > 07/25/20 [id number]
== END ==
PROVIDERS: ATTEND Physician Assistant
DX: I50.9 Heart failure, unspecified (principal); I51.7 Cardiomegaly

== ENCOUNTER → 2020-07-26 | Outpatient (REF) | payer MEDICARE ==
[2020-07-26 10:44] LABS: CALCIUM LEVEL 8.3 MG/DL (8.8-10.2); CREATININE FOR GFR 1.13 MG/DL (0.55-1.30); GLOMERULAR FILTRATION RATE 48.7 (>32); POTASSIUM SERUM 3.2 MEQ/L (3.5-5.1)
== END ==
PROVIDERS: ATTEND Internal Medicine
DX: I50.9 Heart failure, unspecified (principal)

== ENCOUNTER → 2020-07-29 | Outpatient (REF) | payer MEDICARE ==
[2020-07-29 09:18] LABS: CALCIUM LEVEL 8.2 MG/DL (8.8-10.2); CREATININE FOR GFR 1.03 MG/DL (0.55-1.30); GLOMERULAR FILTRATION RATE 54.2 (>32)
== END ==
PROVIDERS: ATTEND Internal Medicine
DX: I50.9 Heart failure, unspecified (principal)

== ENCOUNTER → 2020-07-30 | Outpatient (REF) | payer MEDICARE, SELFPAY ==
[2020-07-30 11:08] LABS: HEMATOCRIT 33.6 % (36.0-47.0); MEAN CORPUSCULAR HGB CONC 29.8 g/dl (32.0-36.5); MEAN CORPUSCULAR VOLUME 90.8 fl (80.0-96.0); PLATELET COUNT, AUTOMATED 207 10^3/uL (150-450); WHITE BLOOD COUNT 4.2 10^3/uL (4.0-10.0)
[2020-07-30 11:36] LABS: CALCIUM LEVEL 8.4 MG/DL (8.8-10.2); CREATININE FOR GFR 1.18 MG/DL (0.55-1.30); GLOMERULAR FILTRATION RATE 46.3 (>32); POTASSIUM SERUM 3.6 MEQ/L (3.5-5.1)
== END ==
PROVIDERS: ATTEND Internal Medicine
DX: I50.9 Heart failure, unspecified (principal); Z20.822 Contact with and (suspected) exposure to COVID-19
CPT/HCPCS: 36415; 80048; 83880; 85027; U0003

== ENCOUNTER → 2020-08-06 | Outpatient (REF) | payer MEDICARE ==
[2020-08-06 10:45] LABS: HEMATOCRIT 32.5 % (36.0-47.0); HEMOGLOBIN 9.6 g/dl (12.0-15.5); MEAN CORPUSCULAR HEMOGLOBIN 26.1 pg (27.0-33.0); MEAN CORPUSCULAR HGB CONC 29.5 g/dl (32.0-36.5); MEAN CORPUSCULAR VOLUME 88.3 fl (80.0-96.0); PLATELET COUNT, AUTOMATED 248 10^3/uL (150-450); RED BLOOD COUNT 3.68 10^6/uL (4.00-5.40); WHITE BLOOD COUNT 5.6 10^3/uL (4.0-10.0)
[2020-08-06 11:13] LABS: CALCIUM LEVEL 8.4 MG/DL (8.8-10.2); CREATININE FOR GFR 1.37 MG/DL (0.55-1.30); POTASSIUM SERUM 3.6 MEQ/L (3.5-5.1)
--- NOTE | 2020-08-06 16:06 | REPPI ---
INDICATION: CHF [id number]. COMPARISON: 07/31/2020. TECHNIQUE: Single AP view chest. FINDINGS: Moderate cardiomegaly is unchanged. There is calcification of the thoracic aorta. The mediastinal silhouette is unchanged. Stable bilateral effusions are again noted, left greater than right. Mild adjacent bibasilar parenchymal opacity which is also stable. Pulmonary vasculature is increased, unchanged. IMPRESSION: Stable exam. <Electronically signed by Oscar Reid > 08/06/20 [id number]
== END ==
PROVIDERS: ATTEND Internal Medicine
DX: I50.9 Heart failure, unspecified (principal)

== ENCOUNTER → 2020-08-09 | Outpatient (REF) | payer MEDICARE ==
[2020-08-09 11:38] LABS: CALCIUM LEVEL 9.1 MG/DL (8.8-10.2); CREATININE FOR GFR 1.31 MG/DL (0.55-1.30); GLOMERULAR FILTRATION RATE 41.1 (>32); POTASSIUM SERUM 3.4 MEQ/L (3.5-5.1)
== END ==
PROVIDERS: ATTEND Internal Medicine
DX: I50.9 Heart failure, unspecified (principal)

== ENCOUNTER → 2020-08-12 | Outpatient (REF) ==
[2020-08-12 10:57] LABS: CALCIUM LEVEL 9.2 MG/DL (8.8-10.2); CREATININE FOR GFR 1.34 MG/DL (0.55-1.30); POTASSIUM SERUM 3.3 MEQ/L (3.5-5.1)
== END ==
PROVIDERS: ATTEND Physician Assistant
DX: I50.9 Heart failure, unspecified (principal)

== ENCOUNTER → 2020-08-27 | Outpatient (REF) | payer MEDICARE ==
[2020-08-27 12:28] LABS: HEMOGLOBIN 10.7 g/dl (12.0-15.5); MEAN CORPUSCULAR HEMOGLOBIN 24.6 pg (27.0-33.0); MEAN CORPUSCULAR HGB CONC 29.7 g/dl (32.0-36.5); MEAN CORPUSCULAR VOLUME 82.8 fl (80.0-96.0); PLATELET COUNT, AUTOMATED 290 10^3/uL (150-450); RED BLOOD COUNT 4.35 10^6/uL (4.00-5.40); WHITE BLOOD COUNT 7.3 10^3/uL (4.0-10.0)
[2020-08-27 12:58] LABS: CALCIUM LEVEL 8.7 MG/DL (8.8-10.2); CREATININE FOR GFR 1.51 MG/DL (0.55-1.30); GLOMERULAR FILTRATION RATE 34.9 (>32)
== END ==
PROVIDERS: ATTEND Internal Medicine
DX: I50.9 Heart failure, unspecified (principal)

== ENCOUNTER → 2020-08-30 | Outpatient (REF) | payer MEDICARE | PROVIDERS: ATTEND Internal Medicine | DX: E87.6 Hypokalemia (principal) ==

== ENCOUNTER → 2020-09-03 | Outpatient (REF) | payer MEDICARE ==
[2020-09-03 12:01] LABS: CALCIUM LEVEL 8.6 MG/DL (8.8-10.2); CREATININE FOR GFR 1.65 MG/DL (0.55-1.30); GLOMERULAR FILTRATION RATE 31.5 (>32); POTASSIUM SERUM 3.1 MEQ/L (3.5-5.1)
== END ==
PROVIDERS: ATTEND Internal Medicine
DX: I50.9 Heart failure, unspecified (principal)

== ENCOUNTER → 2020-09-03 | Outpatient (REF) | payer MEDICARE | PROVIDERS: ATTEND Internal Medicine | DX: I50.9 Heart failure, unspecified (principal) ==

== ENCOUNTER → 2020-09-09 | Outpatient (REF) | payer MEDICARE ==
[2020-09-09 11:00] LABS: CALCIUM LEVEL 8.8 MG/DL (8.8-10.2); CREATININE FOR GFR 1.74 MG/DL (0.55-1.30); GLOMERULAR FILTRATION RATE 29.6 (>32); POTASSIUM SERUM 3.6 MEQ/L (3.5-5.1)
== END ==
PROVIDERS: ATTEND Internal Medicine
DX: E87.6 Hypokalemia (principal)

== ENCOUNTER → 2020-09-13 | Outpatient (REF) | payer MEDICARE ==
[2020-09-13 19:26] LABS: HEMATOCRIT 40.2 % (36.0-47.0); HEMOGLOBIN 11.7 g/dl (12.0-15.5); MEAN CORPUSCULAR HGB CONC 29.1 g/dl (32.0-36.5); MEAN CORPUSCULAR VOLUME 82.4 fl (80.0-96.0); PLATELET COUNT, AUTOMATED 280 10^3/uL (150-450); RED BLOOD COUNT 4.88 10^6/uL (4.00-5.40); WHITE BLOOD COUNT 14.7 10^3/uL (4.0-10.0)
[2020-09-13 19:46] LABS: CALCIUM LEVEL 8.4 MG/DL (8.8-10.2); CREATININE FOR GFR 1.81 MG/DL (0.55-1.30); GLOMERULAR FILTRATION RATE 28.3 (>32); POTASSIUM SERUM 3.1 MEQ/L (3.5-5.1)
== END ==
PROVIDERS: ATTEND Internal Medicine
DX: R11.0 Nausea (principal)

== ENCOUNTER → 2020-09-16 | Outpatient (REF) | payer MEDICARE ==
[2020-09-16 10:46] LABS: HEMATOCRIT 39.1 % (36.0-47.0); HEMOGLOBIN 11.5 g/dl (12.0-15.5); MEAN CORPUSCULAR HGB CONC 29.4 g/dl (32.0-36.5); MEAN CORPUSCULAR VOLUME 81.5 fl (80.0-96.0); PLATELET COUNT, AUTOMATED 301 10^3/uL (150-450); WHITE BLOOD COUNT 11.6 10^3/uL (4.0-10.0)
[2020-09-16 11:05] LABS: CALCIUM LEVEL 8.7 MG/DL (8.8-10.2); CREATININE FOR GFR 2.36 MG/DL (0.55-1.30); GLOMERULAR FILTRATION RATE 20.8 (>32); POTASSIUM SERUM 3.5 MEQ/L (3.5-5.1)
== END ==
PROVIDERS: ATTEND Internal Medicine
DX: R11.0 Nausea (principal)

== ENCOUNTER → 2020-09-18 | Outpatient (REF) | payer MEDICARE ==
[~2020-09-18] MED LIST changes: +OMEP40CA4 PO; -OMEP40CA97 PO
[2020-09-18 16:19] LABS: HEMATOCRIT 36.8 % (36.0-47.0); HEMOGLOBIN 10.8 g/dl (12.0-15.5); MEAN CORPUSCULAR HEMOGLOBIN 23.9 pg (27.0-33.0); MEAN CORPUSCULAR HGB CONC 29.3 g/dl (32.0-36.5); MEAN CORPUSCULAR VOLUME 81.4 fl (80.0-96.0); PLATELET COUNT, AUTOMATED 318 10^3/uL (150-450); RED BLOOD COUNT 4.52 10^6/uL (4.00-5.40); WHITE BLOOD COUNT 14.7 10^3/uL (4.0-10.0)
[2020-09-18 16:48] LABS: CREATININE FOR GFR 2.5 MG/DL (0.55-1.30); GLOMERULAR FILTRATION RATE 19.5 (>32); POTASSIUM SERUM 4.8 MEQ/L (3.5-5.1)
[2020-09-18 16:49] LABS: CALCIUM LEVEL 8.2 MG/DL (8.8-10.2)
== END ==
PROVIDERS: ATTEND Internal Medicine
DX: I50.9 Heart failure, unspecified (principal)